=== PATIENT | female | born 1935 | race Caucasian/White ===

== ENCOUNTER 2017-04-09 10:19 | Emergency (ER) | payer MEDICARE ==
[~2017-04-09] VITALS: Ht 167.6 cm; Wt 45.4 kg
[~2017-04-09 10:19] MED LIST: ALBU90I INH; AZIT500 PO; BUDE10.22 INH; CEPH500 PO; FIBER; HYDACE5 PO; MINERALS; Naprosyn500 MG PO; Norco 5-325 Ta1 EACH PO; PRED10 PO; Prednisone20 MG PO; SPACER IH; VIT; Zithromax250 MG PO; [UNRECOGNIZED DRUG - OTHER] MC
[2017-04-09 11:06] LABS: BASOPHILS ABSOLUTE AUTO 0.06 K/mm3 (0.00-0.23); BASOPHILS PERCENT AUTO 0 % (0-2); EOSINOPHILS ABSOLUTE AUTO 0.04 K/mm3 (0.00-0.68); EOSINOPHILS PERCENT AUTO 0 % (0-6); Hematocrit 45.4 % (33.0-51.0); Hemoglobin 14.2 g/dL (11.5-16.0); IMMATURE GRAN ABSOLUTE AUTO 0.07 K/mm3 (0.00-0.10); IMMATURE GRAN PERCENT AUTO 0 % (0-1); LYMPHOCYTES ABSOLUTE AUTO 1.03 K/mm3 (0.84-5.20); LYMPHOCYTES PERCENT AUTO 7 % (21-46); MONOCYTES ABSOLUTE AUTO 0.91 K/mm3 (0.16-1.47); MONOCYTES PERCENT AUTO 6 % (4-13); Mean Corpuscular HGB 30.2 pg (26.0-34.0); Mean Corpuscular HGB Conc 31.3 g/dL (31.5-36.5); Mean Corpuscular Volume 97 fL (80-100); Mean Platelet Volume 9.8 fL (9.1-12.4); NEUTROPHILS ABSOLUTE AUTO 13.66 K/mm3 (1.96-9.15); NEUTROPHILS PERCENT AUTO 87 % (41-73); Platelet Count 268 K/mm3 (150-400); RDW Coefficient Variation 14.3 % (11.7-14.2); RDW Standard Deviation 51.7 fL (35.1-46.3); White Blood Cell Count 15.77 K/mm3 (4.00-11.30)
[2017-04-09 11:24] LABS: Alanine Aminotransfer (ALT/SGP 13 U/L (12-78); Albumin, Blood 3.3 g/dL (3.4-5.0); Albumin/Globulin Ratio 0.8 (0.8-1.8); Alk Phos 127 U/L (50-136); Anion Gap 5 mmol/L (6-16); Aspartate Aminotrans (AST/SGOT 8 U/L (12-37); Bilirubin, Total 0.5 mg/dL (0.1-1.0); Blood Urea Nitrogen 8 mg/dL (8-24); Bun/Creatinine Ratio 13.2 (12.0-20.0); CO2, Blood 29 mmol/L (21-32); Calcium, Blood 9.4 mg/dL (8.5-10.1); Chloride, Blood 105 mmol/L (98-108); Creatinine, Blood 0.61 mg/dL (0.40-1.00); Globulin, Blood 4.2 g/dL (2.2-4.0); Glomerular Filtration Rate >60 (60-); Glucose, Blood 89 mg/dL (70-99); Potassium, Blood 3.8 mmol/L (3.5-5.5); Sodium, Blood 139 mmol/L (136-145); Total Protein, Blood 7.5 g/dL (6.4-8.2); Troponin I <0.015 ng/mL (0.000-0.040)
== END 2017-04-09 14:56 | disposition home or self-care (01) ==
LOC: ER 10:19
PROVIDERS: Emergency Medicine
DX: J11.1 Influenza due to unidentified influenza virus with other respiratory manifestations (principal); M54.5 Low back pain; J44.9 Chronic obstructive pulmonary disease, unspecified; F17.210 Nicotine dependence, cigarettes, uncomplicated; Z90.710 Acquired absence of both cervix and uterus
CPT/HCPCS: 36415; 71046; 72100; 80053; 83880; 84484; 85025; 93005; 93010; 99283

== ENCOUNTER 2017-07-25 16:30 | Emergency (ER) | payer MEDICARE ==
[~2017-07-25] VITALS: Ht 167.6 cm; Wt 45.4 kg
[2017-07-25 17:12] LABS: BASOPHILS ABSOLUTE AUTO 0.04 K/mm3 (0.00-0.23); BASOPHILS PERCENT AUTO 1 % (0-2); EOSINOPHILS ABSOLUTE AUTO 0.16 K/mm3 (0.00-0.68); EOSINOPHILS PERCENT AUTO 2 % (0-6); Hematocrit 42.9 % (33.0-51.0); Hemoglobin 13.7 g/dL (11.5-16.0); IMMATURE GRAN ABSOLUTE AUTO 0.03 K/mm3 (0.00-0.10); IMMATURE GRAN PERCENT AUTO 0 % (0-1); LYMPHOCYTES ABSOLUTE AUTO 1.71 K/mm3 (0.84-5.20); LYMPHOCYTES PERCENT AUTO 20 % (21-46); MONOCYTES ABSOLUTE AUTO 0.66 K/mm3 (0.16-1.47); MONOCYTES PERCENT AUTO 8 % (4-13); Mean Corpuscular HGB 30.8 pg (26.0-34.0); Mean Corpuscular HGB Conc 31.9 g/dL (31.5-36.5); Mean Corpuscular Volume 96 fL (80-100); Mean Platelet Volume 9.5 fL (9.1-12.4); NEUTROPHILS ABSOLUTE AUTO 5.88 K/mm3 (1.96-9.15); NEUTROPHILS PERCENT AUTO 69 % (41-73); Platelet Count 229 K/mm3 (150-400); RDW Coefficient Variation 13.6 % (11.7-14.2); RDW Standard Deviation 48.6 fL (35.1-46.3); Red Blood Cell Count 4.45 M/mm3 (3.80-5.20); White Blood Cell Count 8.48 K/mm3 (4.00-11.30)
[2017-07-25 17:31] LABS: Alanine Aminotransfer (ALT/SGP 17 U/L (12-78); Albumin, Blood 3.4 g/dL (3.4-5.0); Albumin/Globulin Ratio 0.9 (0.8-1.8); Alk Phos 98 U/L (50-136); Anion Gap 5 mmol/L (6-16); Aspartate Aminotrans (AST/SGOT 12 U/L (12-37); Bilirubin, Total 0.2 mg/dL (0.1-1.0); Blood Urea Nitrogen 10 mg/dL (8-24); Bun/Creatinine Ratio 14.6 (12.0-20.0); CO2, Blood 29 mmol/L (21-32); Calcium, Blood 8.8 mg/dL (8.5-10.1); Chloride, Blood 107 mmol/L (98-108); Creatinine, Blood 0.69 mg/dL (0.40-1.00); Globulin, Blood 3.7 g/dL (2.2-4.0); Glomerular Filtration Rate >60 (60-); Glucose, Blood 109 mg/dL (70-99); Potassium, Blood 3.6 mmol/L (3.5-5.5); Sodium, Blood 141 mmol/L (136-145); Total Protein, Blood 7.1 g/dL (6.4-8.2); Troponin I <0.015 ng/mL (0.000-0.040)
== END 2017-07-25 18:08 | disposition home or self-care (01) ==
LOC: ER 16:30
PROVIDERS: Emergency Medicine
DX: R07.9 Chest pain, unspecified (principal); J44.9 Chronic obstructive pulmonary disease, unspecified; F17.210 Nicotine dependence, cigarettes, uncomplicated
CPT/HCPCS: 36415; 71045; 80053; 84484; 85025; 93005; 93010; 99283

== ENCOUNTER 2019-04-20 13:37 | Inpatient (IN) | payer MEDICARE ==
[~2019-04-20] VITALS: Ht 157.5 cm; Wt 35.5 kg
[2019-04-20 14:22] LABS: Hematocrit 40.2 % (33.0-51.0); Hemoglobin 13.3 g/dL (11.5-16.0); Mean Corpuscular HGB 31.7 pg (26.0-34.0); Mean Corpuscular HGB Conc 33.1 g/dL (31.5-36.5); Mean Corpuscular Volume 96 fL (80-100); Mean Platelet Volume 10.3 fL (9.1-12.4); Platelet Count 295 K/mm3 (150-400); RDW Coefficient Variation 13.7 % (11.7-14.2); RDW Standard Deviation 48.6 fL (35.1-46.3); White Blood Cell Count 39.29 K/mm3 (4.00-11.30)
[2019-04-20 14:32] LABS: Albumin, Blood 2.7 g/dL (3.4-5.0); Albumin/Globulin Ratio 0.7 (0.8-1.8); Bilirubin, Total 0.6 mg/dL (0.1-1.0); Bun/Creatinine Ratio 27.7 (12.0-20.0); Calcium, Blood 9.1 mg/dL (8.5-10.1); Creatinine, Blood 1.19 mg/dL (0.40-1.00); Globulin, Blood 3.9 g/dL (2.2-4.0); Potassium, Blood 3.5 mmol/L (3.5-5.5); Total Protein, Blood 6.6 g/dL (6.4-8.2)
[2019-04-20 14:59] LABS: BAND PERCENT MAN 2 % (0-8); BASOPHILS PERCENT MAN 0 % (0-2); EOSINOPHILS PERCENT MAN 0 % (0-6); LYMPHOCYTES ABSOLUTE MAN 1.17 K/mm3 (0.84-5.20); LYMPHOCYTES PERCENT MAN 3 % (21-46); MONOCYTES ABSOLUTE MAN 1.57 K/mm3 (0.16-1.47); MONOCYTES PERCENT MAN 4 % (4-13); NEUTROPHILS ABSOLUTE MAN 36.53 K/mm3 (1.96-9.15); SEG NEUTROPHILS PERCENT MAN 91 % (41-73); TOTAL CELLS COUNTED 100
[2019-04-20] MEDS ORDERED: IBUP200 PO (15:48)
--- NOTE | 2019-04-20 18:57 | NUR ---
Shift Summary Patient arrived to unit @ 1740 via stretcher with family at bedside. Used slide sheet to transfer pt to bed. IV abx given, NS @ 75mLs/hr initiated. Pt settled to room and call light protocol. Bed in lowest position, call light in reach. Will continue to monitor.
[2019-04-21 05:39] LABS: Hematocrit 37.4 % (33.0-51.0); Hemoglobin 11.9 g/dL (11.5-16.0); Mean Corpuscular HGB 31.2 pg (26.0-34.0); Mean Corpuscular HGB Conc 31.8 g/dL (31.5-36.5); Mean Corpuscular Volume 98 fL (80-100); Mean Platelet Volume 10.2 fL (9.1-12.4); Platelet Count 271 K/mm3 (150-400); RDW Coefficient Variation 13.7 % (11.7-14.2); RDW Standard Deviation 49.5 fL (35.1-46.3); Red Blood Cell Count 3.82 M/mm3 (3.80-5.20); White Blood Cell Count 29.68 K/mm3 (4.00-11.30)
--- NOTE | 2019-04-21 05:44 | NUR ---
SHIFT SUMMARY PT IS AN 83 Y/O FEMALE, ADMITTED FOR LLE CELLULITIS. SHE IS A&O X 2, THOUGH VERY SLEEPY THROUGH THE NIGHT WHICH MADE ORIENTATION DIFFICULT TO ASSESS. NO COMPLAINTS OF PAIN, NAUSEA OR SOB. VITAL SIGNS STABLE. PT RECEIVING NS @ 75 ML/HR THROUGH THE NIGHT. NO ACUTE CHANGES IN PT CONDITION NOTED. WILL CONTINUE TO MONITOR AND TREAT PER EMAR UNTIL HAND OFF TO DAY SHIFT RN.
[2019-04-21 06:08] LABS: Alanine Aminotransfer (ALT/SGP 17 U/L (12-78); Albumin, Blood 1.9 g/dL (3.4-5.0); Albumin/Globulin Ratio 0.6 (0.8-1.8); Alk Phos 125 U/L (50-136); Anion Gap 6 mmol/L (6-16); Aspartate Aminotrans (AST/SGOT 22 U/L (12-37); Bilirubin, Total 0.4 mg/dL (0.1-1.0); Blood Urea Nitrogen 24 mg/dL (8-24); Bun/Creatinine Ratio 32.7 (12.0-20.0); CO2, Blood 23 mmol/L (21-32); Calcium, Blood 8.4 mg/dL (8.5-10.1); Chloride, Blood 108 mmol/L (98-108); Creatinine, Blood 0.73 mg/dL (0.40-1.00); Globulin, Blood 3.1 g/dL (2.2-4.0); Glomerular Filtration Rate >60 (60-); Glucose, Blood 115 mg/dL (70-99); Potassium, Blood 3.2 mmol/L (3.5-5.5); Sodium, Blood 137 mmol/L (136-145)
[2019-04-21 09:10] LABS: Vancomycin, Random 5.3 ug/mL
--- NOTE | 2019-04-22 04:39 | NUR ---
SHIFT SUMMARY- PT. ALERT TO SELF. ASLEEP DURING MOST OF THE NIGHT. NO APPARENT DISTRESS NOTED. PT. C/O PAIN TO LLE. TYLENOL GIVEN PER EMAR, APPEARED TO HAVE GOOD RELIEF. LT LEG WEEPING, BLE ELEVATED AND PAD IN PLACE FOR ABSORPTION. PT. INCONTINENT, ATTENDS IN PLACE. NO ACUTE CHANGES OVERNIGHT. CALL LIGHT WITHIN REACH AND SIDE RAILS UP X2. WILL CONT TO MONITOR.
[2019-04-22 08:16] LABS: BASOPHILS ABSOLUTE AUTO 0.05 K/mm3 (0.00-0.23); BASOPHILS PERCENT AUTO 0 % (0-2); EOSINOPHILS ABSOLUTE AUTO 0.02 K/mm3 (0.00-0.68); EOSINOPHILS PERCENT AUTO 0 % (0-6); Hematocrit 37.7 % (33.0-51.0); Hemoglobin 12.1 g/dL (11.5-16.0); IMMATURE GRAN ABSOLUTE AUTO 0.11 K/mm3 (0.00-0.10); IMMATURE GRAN PERCENT AUTO 1 % (0-1); LYMPHOCYTES ABSOLUTE AUTO 0.55 K/mm3 (0.84-5.20); LYMPHOCYTES PERCENT AUTO 3 % (21-46); MONOCYTES ABSOLUTE AUTO 0.69 K/mm3 (0.16-1.47); MONOCYTES PERCENT AUTO 4 % (4-13); Mean Corpuscular HGB 31.5 pg (26.0-34.0); Mean Corpuscular HGB Conc 32.1 g/dL (31.5-36.5); Mean Corpuscular Volume 98 fL (80-100); Mean Platelet Volume 9.9 fL (9.1-12.4); NEUTROPHILS ABSOLUTE AUTO 18.06 K/mm3 (1.96-9.15); NEUTROPHILS PERCENT AUTO 93 % (41-73); Platelet Count 292 K/mm3 (150-400); RDW Coefficient Variation 13.7 % (11.7-14.2); RDW Standard Deviation 49.5 fL (35.1-46.3); Red Blood Cell Count 3.84 M/mm3 (3.80-5.20); White Blood Cell Count 19.48 K/mm3 (4.00-11.30)
[2019-04-22 08:45] LABS: Albumin, Blood 1.9 g/dL (3.4-5.0); Anion Gap 5 mmol/L (6-16); Blood Urea Nitrogen 21 mg/dL (8-24); Bun/Creatinine Ratio 39.6 (12.0-20.0); CO2, Blood 23 mmol/L (21-32); Calcium, Blood 8.7 mg/dL (8.5-10.1); Chloride, Blood 112 mmol/L (98-108); Creatinine, Blood 0.53 mg/dL (0.40-1.00); Glomerular Filtration Rate >60 (60-); Glucose, Blood 121 mg/dL (70-99); Phosphorus, Blood 1.2 mg/dL (2.5-4.9); Potassium, Blood 3.7 mmol/L (3.5-5.5); Sodium, Blood 140 mmol/L (136-145); Vancomycin, Trough 6.3 ug/mL (5.0-10.0)
--- NOTE | 2019-04-22 12:10 | NUR ---
TRANSFERRED PT TO ICU 3 AT NOON
--- NOTE | 2019-04-22 15:20 | NUR ---
THIS STUDENT NURSE SPOKE WITH PATIENT ON 04/22/2019 TO REQUEST TO HELP WITH PT'S CARE ON 04/23/2019 AT [phone]. PT APPROVED.
--- NOTE | 2019-04-22 16:57 | NUR ---
Per admit trigger, I was tasked to meet with Mrs. Carl to offer information about advanced care planning. She was sleeping soundly when I visited and no family present. Per RN, Mrs. Carl is mentally altered at baseline. Therefore this conversation seemed inappropriate. I left informatio packet at bedside table. If family arrives, I will be available to answer question/guidence.
--- NOTE | 2019-04-22 19:28 | NUR ---
SHIFT SUMMARY BROOK COMPLAINED OF PAIN RELIEVED BY TYLENOL THIS SHIFT. LLE WEEPING AND SORE, DISPOSABLE CHUCKS CHANGED REGULARLY. INCONTINENT AND Q2 TURNS, COCCYX RED BUT NO OPEN AREAS. TOOK PILLS WITH APPLESAUCE. ATTEMPTED TO GET OOB WITH PT, BUT LEG WAS TOO PAINFUL. FAMILY VISITED, CALL LIGHT IN REACH, TM
[2019-04-23 05:52] LABS: Hematocrit 36.4 % (33.0-51.0); Hemoglobin 11.7 g/dL (11.5-16.0); Mean Corpuscular HGB Conc 32.1 g/dL (31.5-36.5); Mean Corpuscular Volume 97 fL (80-100); Mean Platelet Volume 9.8 fL (9.1-12.4); Platelet Count 282 K/mm3 (150-400); RDW Coefficient Variation 13.5 % (11.7-14.2); RDW Standard Deviation 48.6 fL (35.1-46.3); Red Blood Cell Count 3.77 M/mm3 (3.80-5.20); White Blood Cell Count 11.69 K/mm3 (4.00-11.30)
[2019-04-23 06:23] LABS: Albumin, Blood 1.9 g/dL (3.4-5.0); Anion Gap 5 mmol/L (6-16); Blood Urea Nitrogen 16 mg/dL (8-24); CO2, Blood 23 mmol/L (21-32); Calcium, Blood 8.2 mg/dL (8.5-10.1); Chloride, Blood 113 mmol/L (98-108); Creatinine, Blood 0.47 mg/dL (0.40-1.00); Glomerular Filtration Rate >60 (60-); Glucose, Blood 121 mg/dL (70-99); Phosphorus, Blood 1.1 mg/dL (2.5-4.9); Potassium, Blood 3.4 mmol/L (3.5-5.5); Sodium, Blood 141 mmol/L (136-145)
--- NOTE | 2019-04-23 07:25 | NUR ---
04/23/19 0600 PT SLEPT ON AND OFF LAST NIGHT. VITALS STABLE. TURNED Q 2 HOURS WITH PILLOWS FOR SUPPORT. MEDICATED FOR PAIN PER MAR. INCONTINENT OF URINE AND ONE BROWN BM THIS SHIFT. PT HOPING TO GO HOME TODAY.
--- NOTE | 2019-04-23 17:58 | NUR ---
PT ALERT X3 DURING THIS SHIFT, BUT FORGETFUL OF HER SITUATION. PT VERY HUGHES. PT REMINDED MULTIPLE TIMES OF THE CONDITION OF HER FOOT AND THE CONCEQUENCES OF NOT RECEIVING ADEQUATE CARE. PT CONTINUES TO STATE THAT SHE IS GOING TO BE PICKED UP BY HER FAMILY TODAY/TONIGHT/TOMORROW TO GO HOME. PT COOPERATIVE WITH CARE AND IN GOOD SPIRITS. PT'S FAMILY IN ROOM THIS AFTERNOON, WITH PLANS TO RETURN LATER THIS EVENING. PT CURRENTLY SITTING UP IN BED EATING DINNER.
--- NOTE | 2019-04-24 05:16 | NUR ---
04/24/19 0510 AWAKENED FOR LABWORK. CHEERFUL AND JOKING WITH PRINTER SLOTTER OPERATOR. NO COMPLAINTS THIS AM.
[2019-04-24 05:38] LABS: BASOPHILS ABSOLUTE AUTO 0.04 K/mm3 (0.00-0.23); BASOPHILS PERCENT AUTO 0 % (0-2); EOSINOPHILS ABSOLUTE AUTO 0.17 K/mm3 (0.00-0.68); EOSINOPHILS PERCENT AUTO 2 % (0-6); Hematocrit 39.9 % (33.0-51.0); Hemoglobin 12.6 g/dL (11.5-16.0); IMMATURE GRAN ABSOLUTE AUTO 0.12 K/mm3 (0.00-0.10); IMMATURE GRAN PERCENT AUTO 1 % (0-1); LYMPHOCYTES ABSOLUTE AUTO 1.08 K/mm3 (0.84-5.20); LYMPHOCYTES PERCENT AUTO 12 % (21-46); MONOCYTES ABSOLUTE AUTO 0.89 K/mm3 (0.16-1.47); MONOCYTES PERCENT AUTO 10 % (4-13); Mean Corpuscular HGB 30.4 pg (26.0-34.0); Mean Corpuscular HGB Conc 31.6 g/dL (31.5-36.5); Mean Corpuscular Volume 96 fL (80-100); Mean Platelet Volume 9.3 fL (9.1-12.4); NEUTROPHILS ABSOLUTE AUTO 6.84 K/mm3 (1.96-9.15); NEUTROPHILS PERCENT AUTO 75 % (41-73); Platelet Count 282 K/mm3 (150-400); RDW Coefficient Variation 13.6 % (11.7-14.2); RDW Standard Deviation 48.8 fL (35.1-46.3); Red Blood Cell Count 4.14 M/mm3 (3.80-5.20); White Blood Cell Count 9.14 K/mm3 (4.00-11.30)
[2019-04-24 06:00] LABS: Anion Gap 3 mmol/L (6-16); Blood Urea Nitrogen 7 mg/dL (8-24); CO2, Blood 27 mmol/L (21-32); Calcium, Blood 7.8 mg/dL (8.5-10.1); Chloride, Blood 108 mmol/L (98-108); Creatinine, Blood 0.35 mg/dL (0.40-1.00); Glomerular Filtration Rate >60 (60-); Glucose, Blood 106 mg/dL (70-99); Phosphorus, Blood 1.7 mg/dL (2.5-4.9); Potassium, Blood 3.1 mmol/L (3.5-5.5); Sodium, Blood 138 mmol/L (136-145)
--- NOTE | 2019-04-24 16:21 | NUR ---
PT ALERT BUT FORGETFUL THIS SHIFT. LOWER LEFT LEG HAS LESS DRAINAGE THIS SHIFT. DR. HAYS IN THE ROOM THIS AFTERNOON FOR CONSULTATION. DR HAYS CLEANED SOME TISSUE FROM THE WOUND, TOOK A SAMPLE AND GAVE NEW ORDERS FOR WOUND DRESSING. LEG CONTINUES TO BE PAINFUL TO TOUCH AND MOVEMENT. PT ABLE TO REPOSITION SELF IN BED AND TRANSFERED FROM CHAIR TO BED WITH FWW AND MINIMAL ASSISTANCE. PT WORKED WITH PT THIS SHIFT. PT CURRENTLY RESTING IN BED.
--- NOTE | 2019-04-25 02:29 | NUR ---
DRAINAGE FROM WOUND ON LLE SOAKED THROUGH DRESSINGS. NEW DRESSINGS APPLIED. WOUND CLEANED W/ WOUND CLEANSER AND REDRESSED W/ 4X4'S AND WRAPPED IN KERLEX
--- NOTE | 2019-04-25 04:53 | NUR ---
SHIFT SUMMARY PT PLEASANT AND COOPERATIVE. VERY TEJON. SLEPT WELL WHEN NOT BEING WOKEN BY STAFF. PT INCONTINENT/CONTINENT THIS EVENING. UP TO BSC X 1 TO VOID, OTHERWISE INCONTINENT IN BRIEF. LOOSE STOOL X 2. PT VERY THIN AND FRAGILE, MEPILEX TO COCCYX, BARRIER CREAM APPLIED TO RAE AREA. PT REPORTED PAIN IN BACK WHEN TURNING AND CHANGING. DENIED ANY PAIN ONCE SETTLED AGAIN IN BED. DENIED ANY NEED FOR PAIN MEDICATION THIS EVENING. WOUND TO LLE, CLEANED AND REDRESSED THIS EVENING. MODERATE AMOUNT AMOUNT OF YELLOW/CLEAR DRAINAGE. FAMILY IN TO VISIT EARLY IN SHIFT. VITAL SIGNS STABLE. WILL CONTINUE TO MONITOR.
[2019-04-25 08:05] LABS: Hematocrit 44.4 % (33.0-51.0); Hemoglobin 14.3 g/dL (11.5-16.0); Mean Corpuscular HGB 31.2 pg (26.0-34.0); Mean Corpuscular HGB Conc 32.2 g/dL (31.5-36.5); Mean Corpuscular Volume 97 fL (80-100); Mean Platelet Volume 8.9 fL (9.1-12.4); Platelet Count 317 K/mm3 (150-400); RDW Coefficient Variation 13.6 % (11.7-14.2); RDW Standard Deviation 48.8 fL (35.1-46.3); Red Blood Cell Count 4.59 M/mm3 (3.80-5.20); White Blood Cell Count 10.23 K/mm3 (4.00-11.30)
[2019-04-25 08:25] LABS: Albumin, Blood 2.1 g/dL (3.4-5.0); Anion Gap 6 mmol/L (6-16); Blood Urea Nitrogen 8 mg/dL (8-24); Bun/Creatinine Ratio 17.9 (12.0-20.0); CO2, Blood 27 mmol/L (21-32); Calcium, Blood 8.1 mg/dL (8.5-10.1); Chloride, Blood 104 mmol/L (98-108); Creatinine, Blood 0.45 mg/dL (0.40-1.00); Glomerular Filtration Rate >60 (60-); Glucose, Blood 109 mg/dL (70-99); Phosphorus, Blood 1.8 mg/dL (2.5-4.9); Potassium, Blood 3.5 mmol/L (3.5-5.5); Sodium, Blood 137 mmol/L (136-145); Vancomycin, Trough 15.4 ug/mL (5.0-10.0)
--- NOTE | 2019-04-25 09:31 | NUR ---
WOUND DRESSING CHANGE DRESSING CHANGED BY DR. VILA WITH CHICKEN SKIN, GAUZE, AND JULIANO BANDAGE. LEFT LEG ELEVATED.
--- NOTE | 2019-04-25 16:25 | NUR ---
Shift Summary A/O to self, following directions, and to family. Pleasant and cooperative with care. Up in chair for most meals, TQ2. Patient requires frequent repositioning and needs assistance to do so. Dressing on L leg changed this shift. Does not use call light appropriately, extremely [place]CU[place] YAQUI. No other acute changes this shift.
[2019-04-26 05:22] LABS: BASOPHILS ABSOLUTE AUTO 0.07 K/mm3 (0.00-0.23); BASOPHILS PERCENT AUTO 1 % (0-2); EOSINOPHILS PERCENT AUTO 3 % (0-6); Hematocrit 39.9 % (33.0-51.0); Hemoglobin 12.6 g/dL (11.5-16.0); IMMATURE GRAN ABSOLUTE AUTO 0.26 K/mm3 (0.00-0.10); IMMATURE GRAN PERCENT AUTO 3 % (0-1); LYMPHOCYTES ABSOLUTE AUTO 1.37 K/mm3 (0.84-5.20); LYMPHOCYTES PERCENT AUTO 14 % (21-46); MONOCYTES ABSOLUTE AUTO 0.74 K/mm3 (0.16-1.47); MONOCYTES PERCENT AUTO 8 % (4-13); Mean Corpuscular HGB 30.4 pg (26.0-34.0); Mean Corpuscular HGB Conc 31.6 g/dL (31.5-36.5); Mean Corpuscular Volume 96 fL (80-100); NEUTROPHILS ABSOLUTE AUTO 7.04 K/mm3 (1.96-9.15); NEUTROPHILS PERCENT AUTO 72 % (41-73); Platelet Count 298 K/mm3 (150-400); RDW Coefficient Variation 13.6 % (11.7-14.2); RDW Standard Deviation 48.2 fL (35.1-46.3); Red Blood Cell Count 4.15 M/mm3 (3.80-5.20); White Blood Cell Count 9.78 K/mm3 (4.00-11.30)
[2019-04-26 06:01] LABS: Albumin, Blood 1.9 g/dL (3.4-5.0); Anion Gap 4 mmol/L (6-16); Blood Urea Nitrogen 8 mg/dL (8-24); Bun/Creatinine Ratio 15.9 (12.0-20.0); CO2, Blood 27 mmol/L (21-32); Chloride, Blood 108 mmol/L (98-108); Glomerular Filtration Rate >60 (60-); Glucose, Blood 96 mg/dL (70-99); Phosphorus, Blood 2.3 mg/dL (2.5-4.9); Potassium, Blood 3.7 mmol/L (3.5-5.5); Sodium, Blood 139 mmol/L (136-145)
--- NOTE | 2019-04-26 06:40 | NUR ---
SHIFT SUMMARY PT IS AN 83 Y/O FEMALE, ADMITTED FOR LLE CELLULITIS. SHE IS A&O X SELF ONLY, ON BEDREST. PT REPORTED PAIN IN LLE, AND WAS MEDICATED WITH SCHEDULED TYLENOL. NO COMPLAINTS OF NAUSEA OR SOB. VITALS SIGNS STABLE. INCONTINENT, TURN Q2H. NO OTHER ACUTE CHANGES IN PT CONDITION NOTED. WILL CONTINUE TO MONITOR AND TREAT PER EMAR UNTIL HAND OFF TO DAY SHIFT RN.
--- NOTE | 2019-04-26 08:23 | NUR ---
IV INSERTION PREVIOUS 20G IV LFA LEAKING, NEW 20G IV RFA INSERTED BY THIS NURSE.
[2019-04-26] MEDS ORDERED: LACT PO (12:24)
[2019-04-26] MEDS ORDERED: CEPH500 PO (12:25)
--- NOTE | 2019-04-26 12:37 | NUR ---
Discharge Med: Keflex Discussed Pharmacy's recommendation of Keflex 250mg BID x 5 days d/t age with Dr. Fernandez; Keflex will be reduced to TID instead of the originally ordered frequency of QID.
--- NOTE | 2019-04-26 17:10 | NUR ---
Discharge Summary A/O to self and family. Discharging home with HH. Pt will be living with her brother (Cassius) and his (Oralia) while grand-daughter (Ching) will be the one to take patient to appointments. Cassius's phone number is [phone]. Ching's phone number is [phone]. Discharge instructions reviewed with Ching and patient at bedside, they had no questions at this time. Meds faxed to [facility], f/u appointment scheduled with PCP. Personal belongings sent home. Patient escorted by this RN via w/c, transporting home via personal vehicle. IV removed, WNL. LLE wound dressing changed today, remains C/D/I.
== END 2019-04-26 16:55 | disposition home or self-care (01) | DRG 853 ==
LOC: ER 13:37 → MEDS 16:36
PROVIDERS: Emergency Medicine; Internal Medicine; Pharmacist; ADMIT Internal Medicine
PROC: 0JBP0ZZ Excision of Left Lower Leg Subcutaneous Tissue and Fascia, Open Approach (ICD-10-PCS; principal; 2019-04-24)
DX: A40.0 Sepsis due to streptococcus, group A (principal); E43 Unspecified severe protein-calorie malnutrition; L03.116 Cellulitis of left lower limb; E87.2 Acidosis; N17.9 Acute kidney failure, unspecified; Z68.1 Body mass index [BMI] 19.9 or less, adult; R65.20 Severe sepsis without septic shock; J44.9 Chronic obstructive pulmonary disease, unspecified; F17.210 Nicotine dependence, cigarettes, uncomplicated; E87.6 Hypokalemia; E83.39 Other disorders of phosphorus metabolism; I12.9 Hypertensive chronic kidney disease with stage 1 through stage 4 chronic kidney disease, or unspecified chronic kidney disease; N18.9 Chronic kidney disease, unspecified; I10 Essential (primary) hypertension
CPT/HCPCS: 36415; 73590; 73630; 73701; 80053; 80069; 80202; 83605; 83735; 83880; 85025; 85027; 85651; 85730; 86140; 87040; 87070; 87075; 87147; 87205; 93005; 93010; 94640; 94760; 96365; 97110; 97162; 97166; 97530; 97535; 99285-25; A9270; J0692; J1650; J3370; J7030; J7050; J7060; Q9967

== ENCOUNTER 2019-05-02 17:40 | Inpatient (IN) | payer MEDICARE ==
[~2019-05-02] VITALS: Ht 165.1 cm; Wt 36.7 kg
[~2019-05-02 17:40] MED LIST changes: +IBUP200 PO; +LACT PO
[2019-05-02 19:16] LABS: BASOPHILS ABSOLUTE AUTO 0.11 K/mm3 (0.00-0.23); BASOPHILS PERCENT AUTO 1 % (0-2); EOSINOPHILS ABSOLUTE AUTO 0.12 K/mm3 (0.00-0.68); EOSINOPHILS PERCENT AUTO 1 % (0-6); Hematocrit 42.4 % (33.0-51.0); Hemoglobin 13.5 g/dL (11.5-16.0); IMMATURE GRAN ABSOLUTE AUTO 0.14 K/mm3 (0.00-0.10); IMMATURE GRAN PERCENT AUTO 1 % (0-1); LYMPHOCYTES ABSOLUTE AUTO 1.46 K/mm3 (0.84-5.20); LYMPHOCYTES PERCENT AUTO 7 % (21-46); MONOCYTES ABSOLUTE AUTO 0.93 K/mm3 (0.16-1.47); MONOCYTES PERCENT AUTO 5 % (4-13); Mean Corpuscular HGB 31.4 pg (26.0-34.0); Mean Corpuscular HGB Conc 31.8 g/dL (31.5-36.5); Mean Corpuscular Volume 99 fL (80-100); Mean Platelet Volume 9.3 fL (9.1-12.4); NEUTROPHILS PERCENT AUTO 87 % (41-73); Platelet Count 497 K/mm3 (150-400); RDW Coefficient Variation 14.5 % (11.7-14.2); RDW Standard Deviation 51.3 fL (35.1-46.3); White Blood Cell Count 20.76 K/mm3 (4.00-11.30)
[2019-05-02 19:34] LABS: Albumin, Blood 2.9 g/dL (3.4-5.0); Albumin/Globulin Ratio 0.7 (0.8-1.8); Anion Gap 4 mmol/L (6-16); Aspartate Aminotrans (AST/SGOT 24 U/L (12-37); Bilirubin, Total 0.5 mg/dL (0.1-1.0); Blood Urea Nitrogen 25 mg/dL (8-24); Bun/Creatinine Ratio 34.2 (12.0-20.0); CO2, Blood 27 mmol/L (21-32); Calcium, Blood 9.2 mg/dL (8.5-10.1); Chloride, Blood 104 mmol/L (98-108); Creatinine, Blood 0.73 mg/dL (0.40-1.00); Glomerular Filtration Rate >60 (60-); Glucose, Blood 98 mg/dL (70-99); Potassium, Blood 3.6 mmol/L (3.5-5.5); Sodium, Blood 135 mmol/L (136-145); Total Protein, Blood 6.9 g/dL (6.4-8.2)
[2019-05-02 19:38] LABS: Alanine Aminotransfer (ALT/SGP 25 U/L (12-78); Alk Phos 131 U/L (50-136)
[2019-05-02] MEDS ORDERED: BUDE10.22 (20:35)
[2019-05-03 06:15] LABS: BASOPHILS ABSOLUTE AUTO 0.05 K/mm3 (0.00-0.23); BASOPHILS PERCENT AUTO 1 % (0-2); EOSINOPHILS ABSOLUTE AUTO 0.53 K/mm3 (0.00-0.68); EOSINOPHILS PERCENT AUTO 5 % (0-6); Hemoglobin 10.9 g/dL (11.5-16.0); IMMATURE GRAN ABSOLUTE AUTO 0.07 K/mm3 (0.00-0.10); IMMATURE GRAN PERCENT AUTO 1 % (0-1); LYMPHOCYTES ABSOLUTE AUTO 1.03 K/mm3 (0.84-5.20); LYMPHOCYTES PERCENT AUTO 10 % (21-46); MONOCYTES PERCENT AUTO 6 % (4-13); Mean Corpuscular HGB 30.6 pg (26.0-34.0); Mean Corpuscular HGB Conc 31.1 g/dL (31.5-36.5); Mean Corpuscular Volume 98 fL (80-100); Mean Platelet Volume 9.5 fL (9.1-12.4); NEUTROPHILS PERCENT AUTO 78 % (41-73); Platelet Count 362 K/mm3 (150-400); RDW Coefficient Variation 14.4 % (11.7-14.2); RDW Standard Deviation 51.6 fL (35.1-46.3); Red Blood Cell Count 3.56 M/mm3 (3.80-5.20); White Blood Cell Count 10.48 K/mm3 (4.00-11.30)
[2019-05-03 06:33] LABS: Anion Gap 3 mmol/L (6-16); Blood Urea Nitrogen 17 mg/dL (8-24); Bun/Creatinine Ratio 29.2 (12.0-20.0); CO2, Blood 26 mmol/L (21-32); Calcium, Blood 7.7 mg/dL (8.5-10.1); Chloride, Blood 111 mmol/L (98-108); Creatinine, Blood 0.58 mg/dL (0.40-1.00); Glomerular Filtration Rate >60 (60-); Glucose, Blood 100 mg/dL (70-99); Potassium, Blood 3.3 mmol/L (3.5-5.5); Sodium, Blood 140 mmol/L (136-145)
--- NOTE | 2019-05-03 12:26 | NUR ---
PT ADMITTED PT ADMITTED. VSS. PT ORIENTED TO ROOM. BED ALRAM ON DUE TO CONFUSION. DR. POWELL NOTIFIED OF PT ADMISSION AND BACK PAIN. STATED HE WILL SEE PT SOON AND MAKE ORDERS NEEDED. FAMILY AT BEDSIDE. WILL CONTINUE TO MONITOR.
--- NOTE | 2019-05-03 15:00 | NUR ---
Initial Visit: Demented pt admitted with cellulitis. She is sitting up in bed, eating at time of visit. Family includes pt's granddaughter, son, and great-granddaughter. Family is upset with her admission. Pt has many social issues, including currently living with a brother after being evicted from her home that she shared with her daughter. The daughter is currently unavailable and not answering family's calls - they do not know of her whereabouts. Pt has poor understanding of life saving interventions. Nurse attempted to discuss with her without her understanding, as she is not understanding them now. She is forgetful, requiring frequent direction of where she is. Discussed with family. POLST form given and discussed. They do not think she would want to be resusitated. They will discuss as a family. Questions answered. Their concerns are for her legs. Will remain avaialble.
--- NOTE | 2019-05-03 16:36 | NUR ---
SHIFT SUMMARY PT ADMIT FINISHED. NEW IV PLACED IN R UPPER ARM. PT MEDICATED FOR PAIN TWICE THIS SHIFT. OT RICHARD COMPLETED. PT VERY CONFUSED BUT AT MENTATION BASELINE. WOUNDS DRESSED & PICS TAKEN. SEE CHART. PT SATING WELL ON RA. FAMILY AT BEDSIDE. PT UP TO COMMODE TO VOID. HAS SMALL BM THIS SHIFT. NO OTHER CHANGES IN ASSESSMENT AT THIS TIME. WILL CONTINUE TO MONITOR UNTIL TURNOVER IS COMPLETE.
[2019-05-04 05:06] LABS: BASOPHILS ABSOLUTE AUTO 0.04 K/mm3 (0.00-0.23); BASOPHILS PERCENT AUTO 0 % (0-2); EOSINOPHILS ABSOLUTE AUTO 0.56 K/mm3 (0.00-0.68); EOSINOPHILS PERCENT AUTO 5 % (0-6); Hematocrit 35.7 % (33.0-51.0); Hemoglobin 11.3 g/dL (11.5-16.0); IMMATURE GRAN ABSOLUTE AUTO 0.05 K/mm3 (0.00-0.10); IMMATURE GRAN PERCENT AUTO 1 % (0-1); LYMPHOCYTES ABSOLUTE AUTO 1.18 K/mm3 (0.84-5.20); LYMPHOCYTES PERCENT AUTO 11 % (21-46); MONOCYTES ABSOLUTE AUTO 0.54 K/mm3 (0.16-1.47); MONOCYTES PERCENT AUTO 5 % (4-13); Mean Corpuscular HGB 31.5 pg (26.0-34.0); Mean Corpuscular HGB Conc 31.7 g/dL (31.5-36.5); Mean Corpuscular Volume 99 fL (80-100); Mean Platelet Volume 9.7 fL (9.1-12.4); NEUTROPHILS PERCENT AUTO 78 % (41-73); Platelet Count 400 K/mm3 (150-400); RDW Coefficient Variation 14.6 % (11.7-14.2); RDW Standard Deviation 52.8 fL (35.1-46.3); Red Blood Cell Count 3.59 M/mm3 (3.80-5.20); White Blood Cell Count 10.57 K/mm3 (4.00-11.30)
[2019-05-04 05:26] LABS: Anion Gap 6 mmol/L (6-16); Blood Urea Nitrogen 10 mg/dL (8-24); Bun/Creatinine Ratio 16.1 (12.0-20.0); CO2, Blood 26 mmol/L (21-32); Calcium, Blood 8.1 mg/dL (8.5-10.1); Chloride, Blood 107 mmol/L (98-108); Creatinine, Blood 0.62 mg/dL (0.40-1.00); Glomerular Filtration Rate >60 (60-); Glucose, Blood 84 mg/dL (70-99); Potassium, Blood 3.6 mmol/L (3.5-5.5); Sodium, Blood 139 mmol/L (136-145)
--- NOTE | 2019-05-04 06:22 | NUR ---
END OF SHIFT: PATIENT WAS PLEASANTLY CONFUSED THIS NOC SHIFT. INTERMITTENTLY SHE BECOMES SOB, SO I HOOKED UP A CAPSULE TO MONITOR O2 SATS. VSS SHE SLEPT WELL WHEN SHE WAS ABLE TO. SHE WAS TURNED FREQUENTLY AND BED IS LOW LCKED AND ALARMED. CALL KRISHNAN WITHIN REACH.
--- NOTE | 2019-05-04 12:30 | NUR ---
DR VILA IN TO SEE PT. NEW DRESSING APPLIED TO LEFT FOOT. PER DR VILA PT TO BE NPO AFTER MIDNIGHT FOR I&D TOMORROW WITH POSSIBLE WOUND VAC PLACEMENT.
--- NOTE | 2019-05-04 14:00 | NUR ---
Clinical Visit: Pt's family has many questions - most of them are regarding social issues and they are referred to palliative care specialist for questions. They have filled out the POLST form. Pt's son has signed it, as she is unable. It is awaiting doctor's signature.
--- NOTE | 2019-05-04 17:28 | NUR ---
SHIFT SUMMARY- PT A/OX2, FAMILY AT BEDSIDE T/O THE DAY. PT MEDICATED X2 FOR PAIN TO LEFT LEG. DRESSING TO LEFT LEG CHANGED, PT TO BE NPO AFTER MIDNIGHT FOR I&D TOMORROW WITH DR VILA. LS DIMINISHED, ON . PT WITH NOTED RASH ALL OVER BODY, TOPICAL AND PO BENADRYL ORDERED. DR ROSE TO BE CONSULTED ON MONDAY FOR PVD. FAMILY CONCERNED ABOUT DISCHARGE PLANS FOR PT SINCE THEY HAVE CONCERNS ABOUT HER LIVING SITUATION AND LIVING WITH PT'S DAUGHTER AND RECENTLY EVICTED. 1-2 ASSIST OUT OF BED TO BSC AND CHAIR. NO OTHER ACUTE CHANGES THIS SHIFT.
--- NOTE | 2019-05-05 05:08 | NUR ---
END OF SHIFT: PATIENT RECEIVED PAIN MEDS X2 THIS SHIFT. WE CHANGED HER DRESSING TO THE LLE AND ANKLE. APPLIED BENEDRYL CREAM TO RASH AND NYSTATIN TO GROIN AND BOTTOM. CHANGED ALL LINENS. PATIENT RESTING QUIETLY IN NO APPARENT DISTRESS.
--- NOTE | 2019-05-05 12:51 | NUR ---
DNR CODE STATUS VERIFIED AND PLACED TO LEFT WRIST. POLST COPIED AND FAXED TO [facility].
--- NOTE | 2019-05-05 15:23 | NUR ---
PT TO DAY SURGERY FOR I&D, FAMILY AT BEDSIDE.
--- NOTE | 2019-05-05 16:47 | NUR ---
SHIFT SUMMARY- PT A/O TO SELF AND FAMILY ONLY. CONFUSED BUT PLEASANT. PT REPORTS PAIN TO LEFT LEG ONLY WITH MOVEMENT OR TOUCH. LS DIMINISHED, ON RA. HRR. PT TO SURGERY TODAY FOR I&D OF LEFT LEG. PT CONT TO HAVE RASH ALL OVER BODY BUT APPEARS TO NOT BE ITCHY TODAY. JENN SIGNED AND CHANGED TO DNR. JEWELSLAJAKOB TO BE CONSULTED TOMORROW. FAMILY AT BEDSIDE T/O THE DAY. 1-2 ASSIST UP TO BSC/CHAIR. NO OTHER ACUTE CHANGES THIS SHIFT.
--- NOTE | 2019-05-05 18:11 | NUR ---
PT ARRIVED TO ROOM 304 VIA BED FROM SURGERY. WOUND VAC IN PLACE TO LEFT ANKLE, RUNNING AT 120 CONT. FAMILY AT BEDSIDE. PT DENIES ANY COMPLAINTS. VSS. WILL CONT TO MONITOR.
[2019-05-06 04:51] LABS: BASOPHILS ABSOLUTE AUTO 0.04 K/mm3 (0.00-0.23); BASOPHILS PERCENT AUTO 1 % (0-2); EOSINOPHILS ABSOLUTE AUTO 0.57 K/mm3 (0.00-0.68); EOSINOPHILS PERCENT AUTO 7 % (0-6); Hematocrit 36.4 % (33.0-51.0); Hemoglobin 11.1 g/dL (11.5-16.0); IMMATURE GRAN ABSOLUTE AUTO 0.05 K/mm3 (0.00-0.10); IMMATURE GRAN PERCENT AUTO 1 % (0-1); LYMPHOCYTES PERCENT AUTO 10 % (21-46); MONOCYTES ABSOLUTE AUTO 0.56 K/mm3 (0.16-1.47); MONOCYTES PERCENT AUTO 7 % (4-13); Mean Corpuscular HGB Conc 30.5 g/dL (31.5-36.5); Mean Corpuscular Volume 102 fL (80-100); Mean Platelet Volume 9.7 fL (9.1-12.4); NEUTROPHILS ABSOLUTE AUTO 5.93 K/mm3 (1.96-9.15); NEUTROPHILS PERCENT AUTO 75 % (41-73); Platelet Count 337 K/mm3 (150-400); RDW Coefficient Variation 14.9 % (11.7-14.2); RDW Standard Deviation 55.1 fL (35.1-46.3); Red Blood Cell Count 3.58 M/mm3 (3.80-5.20); White Blood Cell Count 7.95 K/mm3 (4.00-11.30)
[2019-05-06 05:11] LABS: Albumin, Blood 1.7 g/dL (3.4-5.0); Anion Gap 5 mmol/L (6-16); Blood Urea Nitrogen 8 mg/dL (8-24); Bun/Creatinine Ratio 13.8 (12.0-20.0); CO2, Blood 26 mmol/L (21-32); Chloride, Blood 109 mmol/L (98-108); Creatinine, Blood 0.58 mg/dL (0.40-1.00); Glomerular Filtration Rate >60 (60-); Glucose, Blood 76 mg/dL (70-99); Phosphorus, Blood 2.7 mg/dL (2.5-4.9); Potassium, Blood 4.1 mmol/L (3.5-5.5); Sodium, Blood 140 mmol/L (136-145)
--- NOTE | 2019-05-06 07:35 | NUR ---
END OF SHIFT: PATIENT WAS TURNED Q 2 THIS HSIFT. SHE GOT BEEDRYL AND NYSTATIN CREAM PER ORDER. HER WOUND VAC REAMINS INTACT. ASSESSMENT WAS COMPLETED AND HOURLY ROUNDING. HE BED KEPT LOW AND LOCKED AND ALRMED. PLEASANTLY CONFUSED.
--- NOTE | 2019-05-06 08:52 | NUR ---
05/06/19 0852 Kusum Mcnulty VERIFICATIONS: EDIT CHART.
--- NOTE | 2019-05-06 14:09 | NUR ---
PERMISSION FOR CARE I, DESTINY MEMBRENO A STUDENT NURSE, RECEIVED PERMISSION ON 05-06-2019 TO PROVIDE CARE ON 05-07-2019
--- NOTE | 2019-05-06 19:28 | NUR ---
SHIFT SUMMARY: NO ACUTE CHANGES TO REPORT THIS SHIFT. PT HX DEMENTIA; A&O X2-3. LLE I&D 05/05; WOUND VAC IN PLACE @ 120MM; CONSULT REQUESTED FROM INTERVENTION[facility] RADIOLOGY (DR ROSE) THIS SHIFT. NO C/O PAIN THIS SHIFT. IV ABX CONTINUING. REPORT GIVEN TO ONCOMING RN.
--- NOTE | 2019-05-06 19:47 | NUR ---
BROOK IS COMFORTABLE IN BED. DENIES PAIN OR DISCOMFORT. RASH NOTED ALL OVER THE BODY, DENIES HAVING ITCHING OR PAIN FROM IT. DRESSINGS NOTED ON BOTTOM, LEFT ARM, LEFT LEG ALL INTACT. WOUND VAC TO THE LLE, HOOKED UP TO SUCTION AND RUNNING AT 125MMGH. NO DRAINAGE NOTED IN CANISTER AT THIS TIME. SHE IS TEJON, DENIES ANY NEEDS AT THIS TIME. CALL LIGHT IN REACH. WILL CONTINUE TO MONITOR.
[2019-05-07 05:03] LABS: BASOPHILS ABSOLUTE AUTO 0.03 K/mm3 (0.00-0.23); BASOPHILS PERCENT AUTO 0 % (0-2); EOSINOPHILS ABSOLUTE AUTO 0.96 K/mm3 (0.00-0.68); EOSINOPHILS PERCENT AUTO 11 % (0-6); Hematocrit 35.3 % (33.0-51.0); Hemoglobin 11.1 g/dL (11.5-16.0); IMMATURE GRAN ABSOLUTE AUTO 0.05 K/mm3 (0.00-0.10); IMMATURE GRAN PERCENT AUTO 1 % (0-1); LYMPHOCYTES ABSOLUTE AUTO 0.89 K/mm3 (0.84-5.20); LYMPHOCYTES PERCENT AUTO 10 % (21-46); MONOCYTES ABSOLUTE AUTO 0.57 K/mm3 (0.16-1.47); MONOCYTES PERCENT AUTO 7 % (4-13); Mean Corpuscular HGB 30.9 pg (26.0-34.0); Mean Corpuscular HGB Conc 31.4 g/dL (31.5-36.5); Mean Platelet Volume 9.4 fL (9.1-12.4); NEUTROPHILS ABSOLUTE AUTO 6.07 K/mm3 (1.96-9.15); NEUTROPHILS PERCENT AUTO 71 % (41-73); Platelet Count 324 K/mm3 (150-400); RDW Coefficient Variation 14.9 % (11.7-14.2); RDW Standard Deviation 53.8 fL (35.1-46.3); Red Blood Cell Count 3.59 M/mm3 (3.80-5.20); White Blood Cell Count 8.57 K/mm3 (4.00-11.30)
[2019-05-07 05:17] LABS: Mean Corpuscular Volume 98 fL (80-100)
[2019-05-07 05:32] LABS: Anion Gap 4 mmol/L (6-16); Blood Urea Nitrogen 11 mg/dL (8-24); CO2, Blood 32 mmol/L (21-32); Calcium, Blood 8.3 mg/dL (8.5-10.1); Chloride, Blood 105 mmol/L (98-108); Creatinine, Blood 0.65 mg/dL (0.40-1.00); Glomerular Filtration Rate >60 (60-); Glucose, Blood 89 mg/dL (70-99); Potassium, Blood 3.5 mmol/L (3.5-5.5); Sodium, Blood 141 mmol/L (136-145)
--- NOTE | 2019-05-07 06:01 | NUR ---
SHIFT SUMMARY: BROOK VS HAVE REMAINED STABLE. PAIN WAS MANAGED WITH ULTRAM, WHICH WAS GIVEN ONCE. THERE WAS SEVERAL EVENTS WHERE THE PATIENT WAS FOUND PLAYING IN HER FECES AND WOULD TEAR HER ATTENDS IN PEICES, THROWING IT EVERYWHERE. LINEN HAD TO BE CHANGED SEVERAL TIMES. EACH TIME SHE WAS TALKED TO ABOUT IT AND NOT TO PLAY IN HER BOWELS, TO CALL FOR ASSISTANCE, WHICH SHE KNEW HOW TO USE THE CALL LIGHT. GROIN AND BOTTOM HAVE BECAME SEVERELY RED AND INFLAMMED. SHE HAS NEW OPENINGS ON HER BOTTOM FROM SCRATCHING AND ULCERATION. DRESSINGS WERE CHANGED THIS SHIFT, NEW ONE PLACED ON BOTTOM. BARRIER CREAM AND NYSTATIN USED IN GROIN. WOUND VAC HAS REMAINED INTACT AND SUCTION AT 120MMGH. NO DRAINAGE NOTED. MEDS GIVEN PER ORDERS. NO OTHER CHANGES TO REPORT.
--- NOTE | 2019-05-07 19:15 | NUR ---
Recieved message from nurse to help family with medical POA paperwork. Neel had mentioned to the family that palliative can assist with this. Call to Neel and message left. Pt is demented and not able to assign medical POA. She is not able to appropriately sign documents. Her son is the clear decision maker for her health. The family is in process of getting the pt's affairs in order and there are many social difficulties. Palliative care to remain available for helping family, but it is unlikely that the pt would be able to sign medical POA.
--- NOTE | 2019-05-07 19:39 | NUR ---
SHIFT SUMMARY: NO ACUTE CHANGES TO REPORT THIS SHIFT. PT ALERT; HX DEMENTIA; ORIENTED TO SELF AND FAMILY. NO C/O PAIN THIS SHIFT. WOUND VAC TO LLE; DRESSING INTACT; AWAITING REVASCULARIZATION. REPORT GIVEN TO ONCOMING RN.
--- NOTE | 2019-05-07 20:00 | NUR ---
FAMILY IS AT BEDSIDE, BEEN WAITING ALL DAY FOR DR. ROSE TO COME TAKE HER TO SURGERY. HE JUST SHOWED UP TO ROOM. SURGICAL CONSENT SIGNED, SHE IS TO BE NPO AFTER BREAKFAST. SHE HAS BEEN GOOD ALL DAY WITH FAMILY AT BEDSIDE. NO PUTTING HER HANDS IN HER BOWEL MOVMENTS. SHE DENIES PAIN AT THIS TIME. ATTENDS WET. SLIVER LAP TENDER ASSISTED IN ATTENDS CHANGE, GROIN REDNESS HAS IMPROVED. REPOSITIONED UP IN BED. WOUND VAC STILL HOOKED TO SUCTION. FAMILY WILL GO HOME NOW THAT SUGERY IS POSTPONE TO TOMORROW. WILL CONTIUE TO MONITOR.
[2019-05-08 04:49] LABS: BASOPHILS ABSOLUTE AUTO 0.03 K/mm3 (0.00-0.23); BASOPHILS PERCENT AUTO 0 % (0-2); EOSINOPHILS ABSOLUTE AUTO 0.77 K/mm3 (0.00-0.68); EOSINOPHILS PERCENT AUTO 11 % (0-6); Hematocrit 35.6 % (33.0-51.0); Hemoglobin 11.3 g/dL (11.5-16.0); IMMATURE GRAN ABSOLUTE AUTO 0.03 K/mm3 (0.00-0.10); IMMATURE GRAN PERCENT AUTO 0 % (0-1); LYMPHOCYTES ABSOLUTE AUTO 0.86 K/mm3 (0.84-5.20); LYMPHOCYTES PERCENT AUTO 12 % (21-46); MONOCYTES ABSOLUTE AUTO 0.59 K/mm3 (0.16-1.47); MONOCYTES PERCENT AUTO 9 % (4-13); Mean Corpuscular HGB 31.3 pg (26.0-34.0); Mean Corpuscular HGB Conc 31.7 g/dL (31.5-36.5); Mean Corpuscular Volume 99 fL (80-100); Mean Platelet Volume 9.5 fL (9.1-12.4); NEUTROPHILS PERCENT AUTO 67 % (41-73); Platelet Count 304 K/mm3 (150-400); RDW Coefficient Variation 15.1 % (11.7-14.2); RDW Standard Deviation 54.2 fL (35.1-46.3); Red Blood Cell Count 3.61 M/mm3 (3.80-5.20); White Blood Cell Count 6.98 K/mm3 (4.00-11.30)
--- NOTE | 2019-05-08 05:14 | NUR ---
SHIFT SUMMARY; BROOK WAS UP MOST OF THE NIGHT. SHE AGAIN WAS PLAYING IN HER BOWEL MOVEMENT AND IT WAS FOUND ALL OVER HER FACE AND BEDDING. SHE EVEN LICKED HER HANDS THAT HAD BM ALL OVER IT. DISCUSSED IN DETAIL AGAIN WHAT IT CAN CAUSE. SHE JUST KEPT STATING SHE DID NOT DO IT. SHE HAD ONE OTHER INCIDENT TONIGHT OF THE OCCURANCE. HAD TO KEEP CURTAIN OPEN AND CHECK ON HER FREQUENTLY TO KEEP HER FROM DOING IT. VS HAVE REMAINED STABLE. MILD PAIN ONLY WITH TURNING. WOUND VAC REMAINED INTAKE. SHE WILL BE NPO AFTER BREAKFAST. SHE STILL DID NOT USE CALL LIGHT. RASH IS IMPROVING. NO OTHER ACUTE CHANGES OCCURRED WILL REPORT TO DAY SHIFT.
--- NOTE | 2019-05-08 16:30 | NUR ---
PT ADMIT PT ALERT AND ORIENT, RESTING WITH HER EYES CLOSED BUT FOLLOWING COMMANDS ALTHOUGH IMPULSIVE. ADMIT FROM MEDICATION NURSE INTO ICU 1. VSS, RIGHT FEMORAL SITE ANGIO SEAL AND INTACT/SOFT AND NO S/S OF BLEEDING. RA WITH SATS WNL AND CLEAR AND DIM. MED BROWN BM SOFT AND INCONTINENT. UO ADEQUATE. WILL CONT TO MONITOR
--- NOTE | 2019-05-08 18:59 | NUR ---
SHE SAT UP IN A CHAIR MUCH OF THE MORNING. NO COMPLAINTS. WOIUND VAC ON LT FOOT WITH GOOD SUCTION. SHE IS VERY [place] AND ALSO HAS SOME CONFUSION. TO [facility] AT 1340 FOR REVASCULARIZATION OF HER LEFT LEG. SHE THEN WENT TO ICU 16 POST PROCEDURE. ALL BELONGINGS TAKEN TO ICU PRIOR TO HER ARRIVAL. CONTACT ISOLATION ONGOING FOR ESBL IN THE URINE.
--- NOTE | 2019-05-08 19:15 | NUR ---
ASSUMED PT CARE FROM SANDRO BOLIVAR BEDSIDE REPORT GIVEN. PT LYING IN BED. RIGHT GROIN SITE HAS ANGIOSEAL CLOSURE DEVICE IN PLACE; SITE IS SOFT, NON-TENDER WITH NO OOZING OR HEMATOMA NOTED. PT HAS A HX OF DEMENTIA AND NEEDS FREQUENT REMINDERS TO KEEP LEG STRAIGHT. PT IS INCONTINENT OF BOWEL AND BLADDER AND REQUIRES FREQUENT CHECKS. WOUND VAC PATENT AND INTACT TO LEFT LOWER EXTREMITY; NEED ORDERS FOR WOUND VAC CHANGES. NURSE NOTIFY ORDERS ENTERED TO CONTACT DR. VILA FOR ORDERS IN THE AM. PT ALSO HAS SIGNIFICANT VASCULAR ULCERS TO BLE'S THAT WILL REQUIRE DRESSING CHANGES THIS SHIFT. NO FAMILY AT BEDSIDE AT THIS TIME.
--- NOTE | 2019-05-09 05:48 | NUR ---
END OF SHIFT SUMMARY PT SLEPT MOST OF NIGHT. REQUIRED Q2 HOURS BRIEF CHANGES D/T INCONTINENCE OF BOTH BOWEL AND BLADDER. CONTINUE TO APPLY NYSTATIN/TRIAMCINOLONE CREAM TO BUTTOCKS/GROIN BID PER ORDERS. WOUND VAC REMAINS PATENT AND INTACT AT 120 MM HG TO LEFT ANKLE/LE. DUE TO BE CHANGED TODAY BY DR. VILA; PER HIS NOTE. OTHER DRESSINGS TO VASCULAR ULCERS WERE CHANGED THIS SHIFT; SEE SHIFT ASSESSMENT. NO FAMLY AT BEDSIDE AT THIS TIME. WILL CONTINUE TO MONITOR UNTIL REPORT IS HANDED OFF TO ONCOMING RN.
--- NOTE | 2019-05-09 09:00 | NUR ---
pt arrived to pcu from icu, report obtained from Álvaro JO. pt is awake alert to self and staff, pleasant and cooperative with care, asking for tv control, denies any complaints of pain, wound vac in place to lle, right foot has a pocket of fluid on top of foot, v.s. stable. call light in reach.
--- NOTE | 2019-05-09 11:17 | NUR ---
RESTING IN BED WATCHING TV, NO COMPLAINTS OR NEEDS AT THIS TIME. CALL LIGHT IN REACH.
--- NOTE | 2019-05-09 12:54 | NUR ---
PT PULLED OF HER ATTENDS, STATES SHE WANTS SOME UNDERWEAR ON NOW. JOB COACH CLEANED HER UP AND IS PUTTING PULL UPS ON HER. CALL LIGHT IN REACH.
--- NOTE | 2019-05-09 18:28 | NUR ---
PT HAS PULLED ATTENDS OF SEVERAL TIMES, BUT HAS BEEN CHANGED REGULARLY, DR. VILA CHANGED THE WOUND VAC, PT HAD SOME PAIN WITH THIS, SO MEDICATED HER. HER SON CAME IN THIS EVENING TO VISIT, NO FURTHER CHANGES, CALL LIGHT IN REACH.
--- NOTE | 2019-05-09 22:31 | NUR ---
1930 PT RESTING COMFORTABLY IN BED; ALERT PERSON ONLY; VERY [place]; CONTACT PRECAUTIONS INTACT; WOUND VAC INTACT LLE MEDIAL ASPECT AT 120 MM/HG CONTINUOUS SUCTION. 0 RESTING COMFORTABLY IN BED.
[2019-05-10 04:20] LABS: BASOPHILS ABSOLUTE AUTO 0.04 K/mm3 (0.00-0.23); BASOPHILS PERCENT AUTO 1 % (0-2); EOSINOPHILS ABSOLUTE AUTO 0.77 K/mm3 (0.00-0.68); EOSINOPHILS PERCENT AUTO 12 % (0-6); Hematocrit 35.7 % (33.0-51.0); Hemoglobin 11.1 g/dL (11.5-16.0); IMMATURE GRAN ABSOLUTE AUTO 0.03 K/mm3 (0.00-0.10); IMMATURE GRAN PERCENT AUTO 1 % (0-1); LYMPHOCYTES ABSOLUTE AUTO 0.83 K/mm3 (0.84-5.20); LYMPHOCYTES PERCENT AUTO 13 % (21-46); MONOCYTES ABSOLUTE AUTO 0.49 K/mm3 (0.16-1.47); MONOCYTES PERCENT AUTO 7 % (4-13); Mean Corpuscular HGB 30.9 pg (26.0-34.0); Mean Corpuscular HGB Conc 31.1 g/dL (31.5-36.5); Mean Corpuscular Volume 99 fL (80-100); Mean Platelet Volume 9.6 fL (9.1-12.4); NEUTROPHILS ABSOLUTE AUTO 4.48 K/mm3 (1.96-9.15); NEUTROPHILS PERCENT AUTO 67 % (41-73); Platelet Count 304 K/mm3 (150-400); RDW Coefficient Variation 15.7 % (11.7-14.2); RDW Standard Deviation 57.3 fL (35.1-46.3); Red Blood Cell Count 3.59 M/mm3 (3.80-5.20); White Blood Cell Count 6.64 K/mm3 (4.00-11.30)
[2019-05-10 04:41] LABS: Anion Gap 6 mmol/L (6-16); Blood Urea Nitrogen 9 mg/dL (8-24); Bun/Creatinine Ratio 13.5 (12.0-20.0); C-REACTIVE PROTEIN, EXT RANGE 0.665 mg/dL (0.000-0.300); CO2, Blood 28 mmol/L (21-32); Calcium, Blood 8.2 mg/dL (8.5-10.1); Chloride, Blood 107 mmol/L (98-108); Creatinine, Blood 0.67 mg/dL (0.40-1.00); Glomerular Filtration Rate >60 (60-); Glucose, Blood 89 mg/dL (70-99); Potassium, Blood 3.3 mmol/L (3.5-5.5); Sodium, Blood 141 mmol/L (136-145)
--- NOTE | 2019-05-10 05:39 | NUR ---
SHIFT SUMMARY: 83 Y/O SLENDER FEMALE HAD RESTLESS NIGHT FIRST 1/2 SHIFT WITH PATIENT ATTEMPTING TO REMOVE ATTENDS (INCONTINENT BOWEL/BLADDER); PT WAS CLEANSED UP BY STAFF AND HOSPITAL PANTS WERE APPLIED BACKWARDS IN EFFORT TO ASSIST KEEPING FROM PULLING OFF ATTENDS AND PLACING FINGERS IN ANUS/VAGINAL AREA WITH GOOD RESULTS NOTED; ALERT TO PERSON ONLY; PT WAS GIVEN MELATONIN 5MG PO LATE IN SHIFT AND RESTED COMFORTABLY REST OF SHIFT; NO PAIN VOICED OR NOTED; BED ALARM APPLIED, BED LOW POSITION WITH CALL LIGHT AT SIDE; CONTACT PRECAUTIONS MAINTAINED.
--- NOTE | 2019-05-10 08:00 | NUR ---
pt laying in bed with eyes closed, wakes easily, is pleasant and coopertive with care, follows commands well, she denies pain at this time, but will change that with any movement, did give her a tramadol, she is oriented to herself only, follows some commands, takes po meds without diff, lungs are dim t/o, resp even and unlabored, no cough noted, hrr, tele in place, sr per monitor, see strip, no edema noted, wound vac to left le, changed yesterday, extensive wounds to legs, see chart, incont of urine or stool, attends in place with pjs in place to keep her from digging, moves upper ext well, helps turn, suzie, call light in reach.
--- NOTE | 2019-05-10 17:35 | NUR ---
pt unchanged, family in to visit, has been turned and changed every two hrs, medicated twice for pain, v.s. stable, otherwise no acute changes this shift, call light in reach.
--- NOTE | 2019-05-10 18:31 | NUR ---
pt was made medical status today, will be sending to medical third floor after reporting off to [facility]. will take via bed.
--- NOTE | 2019-05-10 19:48 | NUR ---
SHIFT SUMMARY- PT TRANSFERED TO MEDICAL FLOOR FROM PCU RECIEVED REPORT FROM SANDRO BRENNER. PER REPORT THERE ARE NAMES OF PEOPLE THAT PT SHOULD NOT BE IN CONTACT WITH ON THE FRONT OF THE CHART, SECURITY IS TO BE CALLED IF THEY COME IN. PT HAS DEMENTIA AND WILL DIG FOR STOOL. PT HAS ATTENDS IN PLACE PJ PANTS ON BACKWARDS WITH THE GOWN TUCKED IN TO PREVENT THIS. PT ARRIVED AT THE TIME OF SHIFT REPORT. PASSED ON TO NIGHT SANDRO.
[2019-05-11 05:45] LABS: Anion Gap 6 mmol/L (6-16); Blood Urea Nitrogen 10 mg/dL (8-24); Bun/Creatinine Ratio 16.9 (12.0-20.0); CO2, Blood 28 mmol/L (21-32); Calcium, Blood 8.3 mg/dL (8.5-10.1); Chloride, Blood 105 mmol/L (98-108); Creatinine, Blood 0.59 mg/dL (0.40-1.00); Glomerular Filtration Rate >60 (60-); Glucose, Blood 84 mg/dL (70-99); Potassium, Blood 3.7 mmol/L (3.5-5.5); Sodium, Blood 139 mmol/L (136-145)
--- NOTE | 2019-05-11 10:00 | NUR ---
SPOKE TO DR GURROLA ABOUT PT RAE AREA. (PICTURES IN CHART). POSSIBLE VIRAL ISSUE DR VIEWED THE PICTURES. WILL ATTEMPT A VIRAL SWAB IF A NEWLY OPENED VESICAL IS AVAILABLE TO SWAB, SURFACE SWAB WILL BE IN EFFECTIVE.
--- NOTE | 2019-05-11 12:00 | NUR ---
PT HAD RAE CARE PERFORMED NO SEALED OR NEWLY OPENED VESICLES AVAILABLE FOR SWABS.
--- NOTE | 2019-05-12 05:23 | NUR ---
ANGLE BENDER SUMMARY Patient unable to rest of stop scratching skin at all overnight. MD notified, order rec'd for mittens, and to change interval on po benedryl to q 4hours and use in conjunction with topical benedryl. All of the clusterlike lesions in rock rectal/vaginal area are now scratched open. two large incontinence overnight. no stool. patient hands in mouth, then scratching all over. minimal complaint of pain, just obvious anxiety and agitation
--- NOTE | 2019-05-12 15:52 | NUR ---
PT HAS BEEN SLEEPING T/O THE DAY, SHE HAD SOME OBVIOUS PAIN THIS MORNING. PT HAS MITTENS IN PLACE AND SHE SEEMS TO BE TOLLERATING THEM QUITE WELL. THIS MORNING SHE HAD THEM BOTH TUCKED UP UNDER HER CHIN WITH A GRIN ON HER FACE AND WHEN SHE WAS WOKE BY STAFF SHE WAS PLEASENT. PT IS ON THE MONITORS AND THEY HAVE CALLED A FEW TIMES WHEN THE PT TOOK THE MITTS OFF. WHEN STAFF ARE IN THE ROOM SHE SAYS "I'M GONNA TAKE THESE OFF IN A LITTLE BIT." SHE DOES NOT APPEAR TO BE IRRITATED WHEN SHE SAYS THIS. PT HAS TRIED TO BAT AT HER IV WITH THE MITTS, WITHOUT THEM I AM SURE SHE WOULD HAVE PULLED OUT THE IV. PT HAS VERY LARGE WOUNDS THAT STARTED AN IV THAT SHE PULLED OUT. PT SKIN IS VERY FRAGILE AND TEARS EASILY, IF SHE TRIES TO REMOVE A BANDAGE IT COULD CAUSE A VERY LARGE WOUND.
--- NOTE | 2019-05-12 19:28 | NUR ---
SHIFT SUMMARY- PT HAS HAD NO ACUTE CHANGES SINCE THE PREVIOUS NOTE. NO S&S OF DISTRESS NOTED. PT TOLLERATING THE MITTS WELL AT THIS TIME. DOES NOT APPEAR TO BE ITCHING AT THIS TIME. PER REPORT FROM LAST NIGHTS RN THE PT PO BENADRYL DIDN'T SEEM TO WORK FOR SEVERAL HOURS AFTER THE PT RECIEVED IT.
--- NOTE | 2019-05-13 01:12 | NUR ---
05/13/19 0115 PT REMOVED MITTEN AND WAS SCRATCHING CHEST AND GROIN AREA. INCONTINENT BRIEF CHANGED AND MEDICATED FOR ITCHING PER MAR. REPOSITIONED IN BED AND ENCOURAGED HER TO SLEEP.
--- NOTE | 2019-05-13 07:26 | NUR ---
05/13/19 0610 PT REPOSITIONED Q 2 HOURS. PT HAS MITTENS TO PREVENT SEVERE ITCHING OF GROIN AND SKIN. VITALLS REMAIN STABLE. FREQUENT RAE-CARE GIVEN DUE TO INCONTINENCE.
--- NOTE | 2019-05-13 16:07 | NUR ---
SUMMARY PT IS A/O X 1, CALM, GENERALLY PLEASANT. BEDREST T/O DAY, TURNING Q2 & SUPPORTING w PILLOWS. SHE WAS IN RESTRAINT MITTENS @ ONSET OF SHIFT D/T SCRATCHING SKIN UNTIL BLEEDING HOWEVER SHE CONTINUALLY IS ABLE TO REMOVE, DR GURROLA STATE TO D/C. REQUIRES FREQUENT REDIRECT. SHE SHE HAS RAE AREA RASH/HERPES, ANTI-VARAL ORDERED, NYSTATIN CREAM TO AREA. THIS AFTERNOON APPLIED BENADRYL CREAM & ORAL BENADRYL TO RELIEVE ITCHING SOMEWHAT. COCCYX ULCER CLEANED, NEW DRSG APPLIED. DR EDWARDS & OYSTER CULTURIST CHANGE L LEG WOUND VAC DRSG. EXUDRY DRSG TO L WELLS. NEW PHOTOS TAKEN. PT SON & GRAND-DAUGHTER IN MOST OF DAY, ABLE TO SPEAK w & HOSE OPERATOR. VSS.
--- NOTE | 2019-05-13 23:18 | NUR ---
05/13/192144 RT FOOT DRESSING CHANGED. NO DRAINAGE NOTED AT THIS TIME. PT C/O ITCHING AND ANTI-ITCH MED GIVEN PER MAY.
--- NOTE | 2019-05-14 00:12 | NUR ---
05/14/19 0010 PT QUIET AND PLAYING WITH STOOL. BOAT CARPENTER AND FLOAT BOAT CARPENTER CLEANING HER UP AND CHANGING BED LINENS/GOWN.
--- NOTE | 2019-05-14 05:30 | NUR ---
05/14/19 0530 SLEPT BETTER LAST NIGHT KARIME. AFTER ANTI-ITCHING MED. DRESSINGS AND WOUND VAC INTACT. TURNED Q 2 HOURS. MULTIPLE SKIN ISSUES AND CARE GIVEN ORDERED AND PER PROTOCOL. INCONTINENT OF URINE AND STOOL THIS SHIFT WITH HER SMEARING STOOL ON BED, CONTROLS, SIDERAILS. FULL BATH GIVEN BY CNAS. VITALS STABLE.
[2019-05-14 14:53] LABS: Adenovirus F 40/41 Not Detected (NOT DETECT); Astrovirus Not Detected (NOT DETECT); Campylobacter Sp Not Detected (NOT DETECT); Cryptosporidium Not Detected (NOT DETECT); Cyclospora Cayetanensis Not Detected (NOT DETECT); E. Coli O157 Not Detected (NOT DETECT); Entamoeba Histolytica Not Detected (NOT DETECT); Enteroaggregative E. coli-EAEC Not Detected (NOT DETECT); Enteropathogenic E. coli-EPEC Not Detected (NOT DETECT); Enterotoxigenic E. coli-ETEC Not Detected (NOT DETECT); Giardia Lamblia Not Detected (NOT DETECT); Norovirus GI/GII Not Detected (NOT DETECT); Plesiomonas Shigelloides Not Detected (NOT DETECT); Rotavirus A Not Detected (NOT DETECT); Salmonella Sp Not Detected (NOT DETECT); Sapovirus Not Detected (NOT DETECT); Shiga Toxin-prod E. coli-STEC Not Detected (NOT DETECT); Shigella/Enteroin E. coli-EIEC Not Detected (NOT DETECT); Vibrio Cholerae Not Detected (NOT DETECT); Vibrio Sp Not Detected (NOT DETECT); Yersinia Enterocolitica Not Detected (NOT DETECT)
--- NOTE | 2019-05-14 18:41 | NUR ---
SUMMARY PT CONTINUES A/O X1, HX DEMENTIA. SHE IS PLEASANTLY CONFUSED. NO S/S PAIN TODAY. SHE WAS UP IN CHAIR FOR PART OF DAY, 1 ASSIST w GAIT BELT. GAIT UNSTEADY, SHE IS FRAIL/THIN/BONY. SHE CONTINUES TO ITCH/SCRATCH BACK & PERIAREA, PRN BENADRYL PO & CREAM. 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 NYSTATIN CREAM TO RAE AREA REDNESS. SHE WAS ABLE TO REACH LLE DRSG & WOUND VAC DRSG, PULLED LOOSE, REQUIRE DRSG CHANGE, DR EDWARDS NOTIFIED OF CHANGE TO WOUNDS, IN TO EXAMINE. FAMILY IN TO MEET w DR ROSE THIS AFTERNOON, QUESTIONS ANSWERED. ENGINE SERVICE REPAIRER STATE PLAN FOR HER TO TRANSFER TO SNF w WOUND VAC TOMORROW, FAMILY AWARE. SHE CONTINUES TO HAVE LOOSE STOOLS, DR GURROLA ORDER GI PANEL--NEGATIVE. VSS.
--- NOTE | 2019-05-15 00:30 | NUR ---
PT RESPIRATIONS ARE ELEVATED AT TIMES WHEN SHE IS AWAKE AND FIGETING. PT APPEARS WITHOUT DISTRESS, SATS WNL ON RA. WHEN PT IS RESTING RESP ARE E/U AND WNL.
--- NOTE | 2019-05-15 06:46 | NUR ---
SHIFT SUMMARY NO ACUTE CHANGES TO REPORT. PT HAS RESTED OFF AND ON COMFORTABLY. PT IS PLESANT, A/O TO SELF ONLY. PT CONSTANTLY PICKS AND FIGITS, SHE REMOVES HER DIAPERS AND SMEARS FECES ON BEDRAILS AND LINENS. PULLS ATTNEDS OFF AND VOIDS IN BED. PT HAS BEEN REMINDED CONSTANTLY TO NOT PICK AT ATTENDS, BUT VERY FORGETUL. WOUND VAC IN PLACE PATENT AND DRAINING. ASSESSMENT UNCHANGED. DC SNF TODAY. BED IN LOWEST POSITION, CALL LIGHT WITHIN REACH. WILL CONTINUE TO MONITOR AND REPORT TO ONCOMING RN.
--- NOTE | 2019-05-15 09:30 | NUR ---
PT PLEASANT COOP ALERT, VERY [place]. NEEDED SEVERAL RESTATEMENTS TO BE UNDERSTOOD. ALERT TO NAME, NOT OR AGE. STATES HAS 3 CHILDREN, KNOWS NAME OF ONE DAUGHTER, NOT SONS. DOES NOT KNOW DATE, YEAR, PRES, WHERE SHE IS, WHY HERE. PULLS AT GOWN, TRIES TO PLACE HANDS IN ATTENDS. H/R REG, NO MURMER NOTED. NO TELE. LUNGS CLEAR, RESP EASY, UNLABORED. ON R.A. BT X4 LAST BM UNKNOWN TO PT. VOIDS INCONT. ATTENDS CDI. WOUND VAC ON L ANKLE PATENT, NO DRAINAGE NOTED. MULT SCABS DRY. RT LEG WRAPPED IN KERLEX. RAE RED. CREAM PLACED PER ORDERS. BED IN LOW POSITION, CALL LITE IN REACH, BED ALARM ON FOR SAFETY
--- NOTE | 2019-05-15 19:11 | NUR ---
PT PLEASANTLY CONFUSED TODAY. DIGS IN ATTENDS WHEN CAN GET TO THEM. PUT PT IN PJ'S TOTRY TO AVOID. CONTINUE TO CHECK REGULARLY TO KEEP CLEEN AND DRY. NO OTHER CONCERNS AT THIS TIME. BED IN LOW POSITION, CALL LITE IN REACH, BED ALARM ON FOR SAFETY
--- NOTE | 2019-05-15 19:18 | NUR ---
Mrs. Carl was alone in room, pleasantly confused, and welcoming. She smiled easily and appeared to enjoy prayer and companionship. She was also quite sleepy. No fears presented. She denied pain. She appeared well cared-for by nursing. I will remain available to pt anf family.
--- NOTE | 2019-05-16 04:17 | NUR ---
SHIFT SUMMARY PATIENT HAD NO ACUTE CHANGES OBSERVED. AXO TO SELF. BEDFAST AND MILLE LACS. WOUND VAC LEFT ANKLE. RIGHT LEG WRAPPED WITH KERLEX. VSS/AFEBRILE. TAKES MEDICATION WHOLE IN APPLE SAUCE. NO IV ACCESS. ABLE TO SLEEP T/O SHIFT. DENIES SOB AND N/V. CALL LIGHT IN REACH. BED IN LOWEST POSITION AND ALARM ACTIVATED. WILL CONTINUE TO MONITOR UNTIL DAY SHIFT NURSE ASSUMES CARE.
--- NOTE | 2019-05-16 14:00 | NUR ---
Clinical Visit: Pt is happy and holding a small stuffed animal. Ching, pt's granddaughter, is at bedside. Ching is attentive to her grandmother's needs and conversing easily with her. Discussed care with Ching. Reviewed that pt may benefit from hospice services if she starts getting sick more often. Discussed pt's prior care and future care, instructed that if she has recurrent readmissions to the hospital, pt likely at end of life stage. Ching states that the family has spoken about this. They have made no decisions regarding this option, but it has been mentioned. Pt's decision maker is her son, Ching's uncle. Assisted with attends change. Pt is very painful in her back when the bed is flat. Repositioned and sat up in bed to relieve symptom. Her pain is severe when not sitting up. Allowed Ching to discuss concerns. She is very upset about the pt's daughter's care of her. Reviewed this and listened therapeutically. Will be available for family and pt to discuss advance care planning further. Pt too demented to fill out an advance directive, however, her family has signed a POLST form. No immediate palliative care concerns at this time. Please notifiy palliative care if change in condition or if family requests more information on future cares and hospice.
--- NOTE | 2019-05-16 21:57 | NUR ---
PATIENT WATCHING TV WITH STUFFED ANIMAL IN HAND. DENIES PAIN, SOB, AND N/V. CALL LIGHT IN REACH.
--- NOTE | 2019-05-17 03:54 | NUR ---
SHIFT SUMMARY PATIENT HAD NO ACUTE CHANGES OBSERVED. AXOX 1-2. HX DEMENTIA. BEDREST. TAKES MEDICATION ONE EACH WITH APPLESAUCE. NO IV ACCESS. WOUND VAC LLE. PATIENT UP WATCHING TV FIRST HALF OF SHIFT. PATIENT PULLED AT ATTENDS AND SMEARED FECAL X ONE EVENT. VSS/AFEBRILE. DENIES PAIN, SOB, AND N/V. CALL LIGHT IN REACH. BED IN LOWEST POSITION. WILL CONTINUE TO MONITOR UNTIL DAY SHIFT NURSE ASSUMES CARE.
--- NOTE | 2019-05-17 18:47 | NUR ---
SHIFT SUMMARY. PT LETHARGIC THIS AM, APPEARED TO BE SLEEPING. PT UP TO CHAIR FOR LUNCH AND DINNER. POOR MEAL INTAKE SUPPLEMENT GIVEN. PT DENIES PAIN, SOB, N/V. WOUND CARE COMPLETED THIS AM BY CN. NO NEW CHANGES OR CONCERNS.
--- NOTE | 2019-05-18 05:28 | NUR ---
SUMMARY PT REPOSITIONED ORDERED. PT WOUND VAC OPERATING WELL. MEPILEX PLACED ON SACRUM AND OTHER WOUNDS. PT REMAINS CONFUSED BUT FOLLOWS DIRECTIONS. PT HAS SLEPT WELL AFTER NIGHT MEDS. CALL LIGHT IN REACH BED ALARM ON.
--- NOTE | 2019-05-18 08:57 | NUR ---
PATIENT DID NOT EAT BREAKFAST THIS SHIFT. PATIENT STATED SHE WAS NOT HUNGRY. I LEFT HER BANNANA AND ENSURE FOR HER FOR LATER WHEN SHE GETS HUNGRY. SHE AGREED TO LET ME LEAVE THOSE IN THE ROOM. RN WAS NOTIFIED.
--- NOTE | 2019-05-18 17:17 | NUR ---
SHIFT SUMMARY- PT IS COOPERATIVE AND PLESANT. CHANGED HER BANDAGES THIS SHIFT. SHE HAS BEEN SLEEPING FOR MUCH OF THIS SHIFT, BUT AWAKENS EASILY. SHE HAS HAD A POOR APPETITE THIS SHIFT, HAVE BEEN ENCOURAGING HER TO EAT.
--- NOTE | 2019-05-18 22:32 | NUR ---
2214 PT HAD LARGE EMESIS BROWN COLORED FLUID; VITALS SIGNS ARE STABLE; PT YELLING OUT AT TIMES VERY LOUD VOICE; LUNG SOUNDS ARE CLEAR. 2229 Elio GRAY NP CALLED AND ADVISED OF ALL THE ABOVE; CONTINUE TO MONITOR VITALS; NO ORDERS RECEIVED. PLAN TO RECHECK ASSESS AND PERFORM REPEAT VITAL SIGNS AT 2300 AND 2400.
--- NOTE | 2019-05-19 04:26 | NUR ---
SHIFT SUMMARY: 83 Y/O SLENDER FEMALE HAD RESTLESS SHIFT AT TIMES WITH C/O ABD PAIN (NAUSEA WITH LARGE AMOUNT YELLOW/BROWN EMESIS NOTED); PORTABLE ABD XRAY WAS PERFORMED AND READ BY DR TORRES; PT WAS GIVEN ZOFRAN 4MG IVP X 1 WITH RELIEF FELT; ABD ROUND AND FIRM TO TOUCH; NASOGASTRIC TUBE NOT ORDERED AT THIS TIME PENDING IF PATIENT HAS MORE EPISODES OF VOMITING AND HOSPITALIST WOULD LIKE TO THEN PERSONALLY EVALUATE PATIENT; ALERT AND ORIENTED X 1; VERY HARD OF HEARING; PT WAS BLADDER SCANNED X 1 WITH READING LESS THAN 60ML AFTER INCONTINENCE VOID; PT LLE WOUND VAC INTACT AT 120 MM/HG CONTINUOUS SUCTION; BED ALARM APPLIED, BED LOW POSITION WITH CALL LIGHT AT SIDE.
--- NOTE | 2019-05-19 09:00 | NUR ---
PATIENT DID NOT EAT BREAKFAST THIS SHIFT DUE TO BEING NPO AT THIS TIME. RN NOTIFIED.
--- NOTE | 2019-05-19 11:56 | NUR ---
PATIENTS ATTENDS WERE CHECKED AND THEY WERE CLEAN AND DRY.
[2019-05-19 12:47] LABS: Hematocrit 41.6 % (33.0-51.0); Hemoglobin 13.1 g/dL (11.5-16.0); Mean Corpuscular HGB 31.7 pg (26.0-34.0); Mean Corpuscular HGB Conc 31.5 g/dL (31.5-36.5); Mean Corpuscular Volume 101 fL (80-100); Mean Platelet Volume 9.6 fL (9.1-12.4); Platelet Count 418 K/mm3 (150-400); RDW Coefficient Variation 16.8 % (11.7-14.2); RDW Standard Deviation 62.1 fL (35.1-46.3); Red Blood Cell Count 4.13 M/mm3 (3.80-5.20); White Blood Cell Count 8.98 K/mm3 (4.00-11.30)
[2019-05-19 13:02] LABS: Anion Gap 6 mmol/L (6-16); Blood Urea Nitrogen 36 mg/dL (8-24); Bun/Creatinine Ratio 50.6 (12.0-20.0); CO2, Blood 28 mmol/L (21-32); Calcium, Blood 9.6 mg/dL (8.5-10.1); Chloride, Blood 108 mmol/L (98-108); Creatinine, Blood 0.71 mg/dL (0.40-1.00); Glomerular Filtration Rate >60 (60-); Glucose, Blood 140 mg/dL (70-99); Potassium, Blood 4.6 mmol/L (3.5-5.5); Sodium, Blood 142 mmol/L (136-145)
--- NOTE | 2019-05-19 14:23 | NUR ---
PATIENT DID NOT EAT LUNCH THIS SHIFT DUE TO BEING NPO AT THIS TIME. RN NOTIFIED.
--- NOTE | 2019-05-19 14:31 | NUR ---
PT HAS VOMITED TWICE THIS SHIFT. SPOKE WITH DR. GURROLA. WILL START PT ON FLUIDS.
--- NOTE | 2019-05-19 17:26 | NUR ---
PATIOENT DID NOT EAT DINNER THIS SHIFT DUE TO BEING NPO AT THIS TIME.
--- NOTE | 2019-05-19 17:34 | NUR ---
SHIFT SUMMARY- PT ALERT, PLESANT AND COOPERATIVE. SHE VOMITED TWICE THIS SHIFT. NOTIFIED DR. GURROLA. PT PLACED ON NPO AND IV FLUIDS WERE ORDERED. PROVIDED LEMON SWABS FOR DRY MOUTH. SHE IS INCONTINENT OF URINE, HAS NOT HAD A BM THIS SHIFT. HER ABDOMEN IS DISTENDED AND TENDER. SPOKE WITH GILES IN PALLATIVE CARE ABOUT TOUCHING BASE WITH FAMILY ON HER CONDITION.
--- NOTE | 2019-05-20 07:29 | NUR ---
SHIFT SUMMARY: PATIENT IS A&O TO SELF, REPORTING PAIN IN COCCYX THAT IS RELIEVED WITH SKIN CARE AND T&P, THERE IS A STAGE II ULCER ON COCCYX WITH ORDER TO NO USE ADHESIVE BOARDER DRESSINGS ON SKIN, CALAZINE SKIN PASTE IS USED TO PROTECT SKIN. PATIENT IS INC. OF URINE, NO BM THIS SHIFT. PATIENT HAD NO REPORTS OF NAUSEA BUT ZOFRAN WAS GIVEN PRIOR TO ORAL MEDS TO PREVENT N/V. PATIENT WAS ABLE TO TAKE AND TOLERATE ALL ORAL MEDICATIONS EXCEPT JEVEN. BOWEL SOUNDS ARE HYPOACTIVE AND ABD. IS DISTENDED. 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
--- NOTE | 2019-05-20 17:17 | NUR ---
SHIFT SUMMARY PT RESTING QUIETLY AT START OF SHIFT. NPO PER ORDERS, BUT PT NEEDING PO MEDS AND WANTING WATER. DR GURROLA NOTIFIED AND DISCUSSED PT STATUS. NEW ORDERS RECEIVED TO TRY TO START PT BACK ON CL AND GIVE PO MEDS. IF ABLE TO TOLERATE, W/O N/V, THEN D/C IVF'S AND POSSIBLY REASSESS TO ADVANCE DIET FURTHER IF PT HAS BM. PT WAS ABLE TO TOLERATE ICE WATER, APPLE JUICE, AND ROBSON. AFTER SEVERAL HOURS, PT HAD SM AMT OF BROWN EMESIS; LESS THAN 30cc. GOWN AND LINENS CHANGED. PT'S ABD BECOMING DISTENDED THRU OUT THE DAY AND PT HAS MENTIONED DISCOMFORT A COUPLE OF TIMES. ZOFRAN GIVEN X1 C/O NAUSEA, THIS AFTERNOON. PT IS VERY THIN AND FRAIL. WOUND VAC TO LLE. PER REPORT, TO BE CHANGED BY DR EDWARDS OR FORMS EXAMINER DESTINY, THIS EVENING. PT HAS BEEN REPOSITIONED OFF BUTTOCKS FREQUENTLY TODAY. REMAINS IN CONTACT ISO FOR ESBL IN THE URINE. CALL LT IN REACH. BED ALARM ON FOR SAFETY.
--- NOTE | 2019-05-20 21:51 | NUR ---
medicated for pain and nausea and crushed meds because PT has been known to spit out meds. PT spit out all crushed meds. Will notify MD of Refusals. PT requesting cold water repeatedly. Has tried clear liquid on day shift and had abd pain and nausea. Family had been in earlier and asking when PT will be DC. There is a bed available at [facility] per Family. SNF recommended by for wound care.
--- NOTE | 2019-05-21 04:22 | NUR ---
83 year old Female with bilat LE vascular ulcers and skattered skin issues continues in isolation for ESBL in urine. She was NPO after restarting clear liquid diet on day shift and tolearing poorly. She spit out all crushed meds at HS. Julieta Valdez DRILL PRESS SET UP OPERATOR RADIAL updated. No new orders. PT had round firm abd , medicated x 1 for nausea. Rectal supp given to promote BM and PT had medium firm BM. She is on camera monitor & tech called me to report PT digging in attends. PT incontinent of bowel and bladder. may have another BM per PT report. PT has good effect pf biscodyl rectal suppository. PT has severe malnutrition with poor wound healing. LT LE wound vac changed. PT has Family who said they went to [facility] as potential [facility] to Dc and they have a open Female bed. no attempts to climb out of bed. Very poor appetite request water frequently.
--- NOTE | 2019-05-21 18:25 | NUR ---
SHIFT SUMMARY... PT HAD SWALLOW EVAL TODAY AND IS TO HAVE NEACTAR THICK LIQUID AND PUREE DIET. PT WAS UP IN THE CHAIR W/1 PERSON ASSIST W/FWW FOR APROX 45 MINS. PT'S WOUND VAC DRESSING IS C/D/I AND WOUND VAC HAS GOOD SUCTION. PT'S FAMILY AT THE BEDSIDE APROX 1 HOUR THIS SHIFT. VS HAVE BEEN STABLE T/O SHIFT. PT HAS HAD MULTIPLE LOOSE STOOLS T/O SHIFT. CALL LIGHT IN REACH WILL CONTINUE TO MONITOR UNTIL REPORT IS GIVEN TO ONCOMING RN.
--- NOTE | 2019-05-22 00:45 | NUR ---
83 year old PT continues in contact isolation for ESBL in urine . She continues to be incontient of large amts urine. Continues in IV fluids. Diet resumed after bowel ileus resolved. PT had large amts of stool after biscodyl supp given. Continues with very poor oral intake. Speech therapy eval recommended pureed diet with nectar thick liquids. She did swallow meds crushed in small amts applesauce. Wound Vac patent to lt le. Medicated x 1 with ultram 50 mg for co back pain with helpful effect.
--- NOTE | 2019-05-22 18:52 | NUR ---
No acute changes noted. No current complaints of pain or discomfort noted. Patient refuses most meals and getting out of bed. Wound vac changed to day. No other issues noted. Will continue to monitor for changes.
--- NOTE | 2019-05-23 00:45 | NUR ---
83 year old Female PT with dementia and vascular ulcers here since 05/03/2019 continues to decline oral intake and continues on IVfluids ns at 75 ml HR. Pleasant confusion. Denies acute pain but given tylenol 650 mg at hs for back pain with helpful effect. PT very waek and emaciated appears malnourished. No attempts to climb out of bed. Refuses oral supplements and Jack. Refuses to eat, takes sips of water. Meds crushed in applesauce takes small bites but did not spit out. Wounds bilat le dressing changed 05/22/2019 on day shift. Minimal drainage from lt le vascular ulcer. Incontinent of urine, no BM yet this shift. No family observed this shift.
[2019-05-23 15:26] LABS: Hematocrit 36.2 % (33.0-51.0); Hemoglobin 11.9 g/dL (11.5-16.0); Mean Corpuscular HGB 32.2 pg (26.0-34.0); Mean Corpuscular HGB Conc 32.9 g/dL (31.5-36.5); Mean Platelet Volume 9.7 fL (9.1-12.4); Platelet Count 246 K/mm3 (150-400); RDW Standard Deviation 57.8 fL (35.1-46.3); White Blood Cell Count 6.99 K/mm3 (4.00-11.30)
[2019-05-23 15:29] LABS: Mean Corpuscular Volume 98 fL (80-100)
[2019-05-23 15:47] LABS: Albumin, Blood 2.2 g/dL (3.4-5.0); Anion Gap 8 mmol/L (6-16); Blood Urea Nitrogen 12 mg/dL (8-24); Bun/Creatinine Ratio 28.8 (12.0-20.0); CO2, Blood 22 mmol/L (21-32); Calcium, Blood 7.9 mg/dL (8.5-10.1); Chloride, Blood 108 mmol/L (98-108); Creatinine, Blood 0.42 mg/dL (0.40-1.00); Glomerular Filtration Rate >60 (60-); Glucose, Blood 75 mg/dL (70-99); Potassium, Blood 2.5 mmol/L (3.5-5.5); Sodium, Blood 138 mmol/L (136-145)
--- NOTE | 2019-05-23 19:23 | NUR ---
SHIFT SUMMARY PATIENT DENIES PAIN, NAUSEA, AND SHORTNESS OF BREATH. PATIENT TURNED Q2, REFUSES OOB. PT WORKED WITH PATIENT TODAY. POOR PO INTAKE. NUTRITION CONSULTED TODAY. PALLIATIVE CARE ALSO CONSULTED ON PATIENT. CALL LIGHT IN REACH.
--- NOTE | 2019-05-23 21:22 | NUR ---
2057-BROOK WAS LAYING IN BED WITH HER EYES CLOSED. SHE OPENED THEM WHEN SPOKEN TO. DENIED PAIN AND DISCOMFORT. LUNG SOUNDS CLEAR THROUGHOUT. NO CONGESTION NOTED. ATTENDS DRY. WOUND VAC TO THE LEFT LE SUCTION AT 120MMGH. DRESSING TO POSTERIOR LLE, R FOOT, BUTTOCKS, ALL INTACT. MILD SWELLING IN THE LLE. HEEL PROTECTORS ON. BED ALARM IS ON. CALL LIGHT WAS ON THE FLOOR HANDED IT BACK TO HER. SHE TOOK ALL MEDS CRUSHED IN APPLESAUCE EXCEPT HER ROBSON, WHICH SHE REFUSED. WILL CONTINUE TO MONITOR.
--- NOTE | 2019-05-24 05:27 | NUR ---
SHIFT SUMMARY: BROOK WAS PLEASANT AND COOPERATIVE ALL NIGHT. SHE WAS UP HALF OF THE NIGHT WATCHING TV. MEDICATIONS WERE GIVEN PER ORDERS EXCEPT SHE REFUSED THE ROBSON, NO MATTER HOW I TRIED TO GIVE IT TO HER. WOUND VAC REMAINED PATENT AND DRAINING SLIGHT AMOUNT OF SEROUS SANGUOUS FLUID. DRESSINGS TO LEGS REMAINED INTACT, CHANGED DRESSING TO BOTTOM. VS REMAINED WNL. NO PAIN WAS NOTED. NO ACUTE CHANGES THIS SHIFT.
--- NOTE | 2019-05-24 16:06 | NUR ---
Met with patients jaylauracayetano to discuss plan of care. pt carmen will speak with family they understand need for hospice care she is sure they will agree. She had many questions about the detail and wound care. Review of hospice and suggested we stay the course and ischareg her to hospice reveiw of how hopsice will care for her wounds and needs. She was comforted and understadning. Updated patient centered care specialist of placement needs and plan family will give us and aswer probably tomorrow.
--- NOTE | 2019-05-24 17:30 | NUR ---
SHIFT SUMMARY PATIENT DENIES PAIN, NAUSEA, AND SHORTNESS OF BREATH. PATIENT REPOSITIONED Q2. PATIENT DECLINES TO GET OUT OF BED. PATIENT HAS ALMOST NO PO INTAKE AND STATES SHE IS NOT HUNGRY. PATIENT'S GRANDDAUGHTER CAME TO VISIT AND SPOKE WITH PALLIATIVE CARE. THE FAMILY WILL DISCUSS HOSPICE. CALL LIGHT IN REACH.
--- NOTE | 2019-05-24 22:06 | NUR ---
1935-BROOK WATCHING TV, ASKING FOR ORANGE JUICE. WHEN OFFERING IT TO HER SHE WILL ONLY TAKE A SIP AND SAY SHE IS DONE. THEN WILL ASK AGAIN AND ONLY WILL TAKE A SIP. SHE DOES NOT WANT ANYTHING ELSE TO DRINK OR EAT. ATTENDS DRY. WOUND VAC HOOKED TO SUCTION. CALL LIGHT IN REACH, AND BED ALARM IS ON.
--- NOTE | 2019-05-25 04:44 | NUR ---
SHIFT SUMMARY: BROOK HAS BEEN UP THE ENTIRE SHIFT, WATCHING TV AND TALKING TO PEOPLE IN THE ROOM. SHE CONTINUED TO CALL OUT FOR DOM. WHEN ASKED IF SHE WANTS TO GO TO SLEEP SHE WOULD SAY SHE IS NOT TIRED. SHE STILL CONTANTLY WANTS ORANGE JUICE BUT WILL ONLY TAKE A SIP OR TWO. SHE DID HAVE BM THIS SHIFT, AND DID PUT HER HANDS IN HER STOOL, INFORMED HER NOT TO DO THAT. VS HAVE BEEN STABLE, SHE HAS BEEN COOPERATIVE. NO CHANGES TO THE WOUNDS, WOUND VAC STAYED INTACT. IV FLUIDS CONTINUED TO INFUSE, IV PATENT. NO ACUTE CHANGES TO REPORT.
[2019-05-25 05:56] LABS: Hematocrit 39.6 % (33.0-51.0); Hemoglobin 13.1 g/dL (11.5-16.0); Mean Corpuscular HGB 31.8 pg (26.0-34.0); Mean Corpuscular HGB Conc 33.1 g/dL (31.5-36.5); Mean Corpuscular Volume 96 fL (80-100); Mean Platelet Volume 9.9 fL (9.1-12.4); Platelet Count 301 K/mm3 (150-400); RDW Standard Deviation 56.3 fL (35.1-46.3); Red Blood Cell Count 4.12 M/mm3 (3.80-5.20); White Blood Cell Count 9.61 K/mm3 (4.00-11.30)
[2019-05-25 06:26] LABS: Albumin, Blood 2.5 g/dL (3.4-5.0); Anion Gap 10 mmol/L (6-16); Blood Urea Nitrogen 10 mg/dL (8-24); CO2, Blood 24 mmol/L (21-32); Calcium, Blood 8.2 mg/dL (8.5-10.1); Chloride, Blood 105 mmol/L (98-108); Creatinine, Blood 0.53 mg/dL (0.40-1.00); Glomerular Filtration Rate >60 (60-); Glucose, Blood 68 mg/dL (70-99); Phosphorus, Blood 1.9 mg/dL (2.5-4.9); Sodium, Blood 139 mmol/L (136-145)
[2019-05-25 06:27] LABS: Potassium, Blood 2.1 mmol/L (3.5-5.5)
--- NOTE | 2019-05-25 06:42 | NUR ---
RECEIVED CRITICAL LOW POTASSIUM AT 2.1. ATTEMPTED TO CONTACT HOSPITALIST TWICE EACH TIME PHONE JUST WENT TO VOICEMAIL. WILL PASS ONTO DAYSHIFT.
--- NOTE | 2019-05-25 06:46 | NUR ---
DR. BLAIR CALLED BACK NEW ORDER FOR POTASSIUM NOTED.
--- NOTE | 2019-05-25 11:42 | NUR ---
1140 SPOKE WITH SON JASIEL REGARDING FAMILIES WISH WITH REGARD TO CONTINUING CARE. SON STATED HE WAS LEANING TOWARDS COMFORT/ HOSPICE CARE BUT WANTED TO TALK WITH HIS DAUGHTERS FIRST. STATED HE WOULD BE IN ON MondayMAY 25.
--- NOTE | 2019-05-25 17:56 | NUR ---
PT REFUSES ANY FOOD OTHER THAN A COUPLE OF SPOONFULLS OF APPLESAUCE WITH HER MEDS. SHE CONTINUES TO BE CONFUSED BUT PLEASANT. SHE IS EAGER TO GET BACK TO [place] AND TELLS STAFF TO LET HER GO BACK HOME. FAMILY TALKED WITH NURSE TODAY REGARDING COMFORT CARE AND WILL BE IN MONDAY TO DISCUSS THIS WITH PALLATIVE CARE. NO ACUTE CHANGES TO PT. NO DISTRESS NOTED.
--- NOTE | 2019-05-25 22:28 | NUR ---
1915- GLADYSElma IS YELLING IN HER ROOM, SHE ASKED FOR HELP, SAYING SHE NEEDS TO GET ON HER PJ'S. SHOWED HER SHE IS IN HER NIGHT GOWN. ATTENDS IS DRY. WOUND VAC HOOKED TO SUCTION. SHE DENIED ANY FOOD OR DRINK WHEN OFFERED TO HER. OFFERED TO REPOSITION HER, SHE DENIED THAT. CALL LIGHT IN REACH, WILL CONTINUE TO MONITOR.
--- NOTE | 2019-05-26 03:02 | NUR ---
BROOK IS SLEEPING COMFORTABLY TONIGHT, IV CONTINUES TO INFUSE WITH NO DIFFICULTY. CALL LIGHT IN REACH WILL CONTINUE TO MONITOR.
--- NOTE | 2019-05-26 04:35 | NUR ---
SHIFT SUMMARY: BROOK HAS A BETTER NIGHT TONIGHT. SHE ACTUALLY SLEPT WELL THROUGHOUT THE SHIFT. SHE ONLY AWAKENED FOR ATTENDS CHANGES, REPOSITION CHANGES AND VITALS. SHE HAS BEEN VERY COMFORTABLE. CLINIMAX CONTINUES TO INFUSE WITH NO PROBLEMS. WOUND VAC AND DRESSINGS ALL STAYED INTACT. VITALS ALL STABLE. NO ACUTE CHANGES TO NOTE. WILL REPORT TO DAY SHIFT.
[2019-05-26 06:17] LABS: Albumin, Blood 2.1 g/dL (3.4-5.0); Anion Gap 5 mmol/L (6-16); Blood Urea Nitrogen 12 mg/dL (8-24); Bun/Creatinine Ratio 29.1 (12.0-20.0); CO2, Blood 27 mmol/L (21-32); Calcium, Blood 7.7 mg/dL (8.5-10.1); Chloride, Blood 105 mmol/L (98-108); Creatinine, Blood 0.41 mg/dL (0.40-1.00); Glomerular Filtration Rate >60 (60-); Glucose, Blood 139 mg/dL (70-99); Phosphorus, Blood 2.6 mg/dL (2.5-4.9); Potassium, Blood 2.8 mmol/L (3.5-5.5); Sodium, Blood 137 mmol/L (136-145)
--- NOTE | 2019-05-26 15:27 | NUR ---
Pal Care visit and family conference: After lengthy discussion and review of pt status family requests comfort care be initiated today and that dc planning to a memory care or LTC facility begin with plan for Hospice care to be involved where ever pt is placed. Pt lost her IV site today and family does not want IV restarted, any lab work or any agressive tx employed. Pt remains cognitively impaired but makes statements to family re: wanting to be let go. She has wind projects supervisor wounds that they are aware will not heal without significant improvement in pt's nutritional status. Pt has repeatedly declined PO intake but is asking for some specific things like coffee and chocolate today. Update called to and VO obtained for comfort care. Pt is not reporting pain per family and per RN and has not been using the ultram that is currently ordered for pain. No n/v reported recently. Primary source of anxiety has been desire to go outside to smoke. Pt cont with nicoteine patch applied. Would anticipate wound care to cover wounds only on discharge from the hospital and d/c of wound vac. Order entered for hospice referral per comfort care order set, with notes to CM on family request and progress towards applying for medicaid. They had started looking at memory care facilities and mentioned [facility]. Instr. given on Hospice, benefits, medicare coverage. THey did not specify an agency of choice at this time. They understand they will be working with care managers on dc planning starting tomorrow. Pt is not actively dying. She is enjoying the company and attention of her children and grandchildren.
--- NOTE | 2019-05-26 16:41 | NUR ---
1515 FAMILY OF PATIENT REPORTED SHE WAS IN PAIN AND NEEDED TYLENOL. THIS NURSE WENT IN AFTER PULLING MED AND ASKED THE PATIENT IF SHE WAS HURTING. SHE SAID NO, WAS JUST TIRED. I ASKED HER AGAIN IF SHE HAD PAIN ANY WHERE AND DID SHE WANT A TYLENOL. SHE AGAIN STATED SHE WAS NOT HURTING, JUST TIRED. PT WAS IN NO APPARENT DISTRESS.
--- NOTE | 2019-05-26 17:35 | NUR ---
PT PLACED ON COMFORT CARE THIS SHIFT PER FAMILY. SHE HAS BEEN RESTING MOST OF THE DAY WITH NO COMPLAINTS OF PAIN, SOB, NV. PT HAS NO APPETITE AND HAS TO BE ENCOURAGED TO EAT EVEN SMALL BITES. PT CONTINUES TO HAVE BMS . NO ACUTE CHANGES.
--- NOTE | 2019-05-26 17:37 | NUR ---
PT RESTING WITH NO COMPLAINTS OF PAIN, SOB, NV.
--- NOTE | 2019-05-26 23:39 | NUR ---
COMFORT CARE 2004 UPON ENTRY ALERT, ANSWERING QUESTIONS APPROPRIATELY. STATES NO PAIN/DISCOMFORT. WOUND VAC PATENT AND DRAINING TO SUCTION. NO ACUTE CHANGES AT THIS TIME. BED IN LOWEST POSITION; ALARM ON. CALL LIGHT WITHIN REACH. WCTM.
--- NOTE | 2019-05-26 23:41 | NUR ---
COMFORT CARE 2210 ALERT, AWAKE, AND ANSWERING QUESTIONS APPROPRIATELY. APPEARS TO BE AGITATED BY THE WOUND VAC AND CONTINUES TO PULL AT DRESSING/TUBING. DENIES PAIN/DISCOMFORT. BED IN LOWEST POSITION; ALARM ON. CALL LIGHT WITHIN REACH. WCTM.
--- NOTE | 2019-05-27 01:01 | NUR ---
COMFORT CARE 0020 ALERT AND AWAKE. APPEARS TO BE RESTING. DENIES PAIN/DISCOMFORT. STATES "IM JUST WATCHING TV". NO ACUTE CHANGES AT THIS TIME. BED IN LOWEST POSITION; ALARM ON. CALL LIGHT AND BELONGINGS WITHIN REACH. WCTM.
--- NOTE | 2019-05-27 03:32 | NUR ---
COMFORT CARE 0230 CAFETERIA WORKER IN ROOM FOR ATTENDS CHANGE; FOLLOWED BEHIND. PATIENT AWAKE AND ALERT; FOLLOWING DIRECTIONS. CONTINUED TO PICK AT DRESSING TO LEG; MAKING NEW SKIN TEAR TO BACK OF LEG, BANDAID PLACED. DRESSING CHANGED. PLACED PREVENTATIVE DRESSING TO COCCYX. STATES NO PAIN/DISCOMFORT AT THIS TIME. WCTM. BED IN LOWEST POSITION; ALARM ON. CALL LIGHT AND BELONGINGS WITHIN REACH.
--- NOTE | 2019-05-27 04:26 | NUR ---
COMFORT CARE 0015 ALERT, AWAKE PULLING AT WOUND VAC SITE/DRESSING. RE-DRESSED AREA. ASSURED HER THAT IT CANNOT BE CUT OFF OR THROWN IN THE TRASH. REQUESTED ORANGE JUICE. NO OTHER REQUESTS AT THIS TIME. BED IN LOWEST POSITION. CALL LIGHT AND BELONGINGS WITHIN REACH. WCTM.
--- NOTE | 2019-05-27 06:20 | NUR ---
SHIFT SUMMARY ALERT AND AWAKE, ANSWERS QUESTIONS APPROPRIATELY. [place]. DID NOT REST OVERNIGHT. WOUND VAC TO L ANKLE WAS PROBLEMATIC FOR PATIENT. CONTINUED TO PULL AND TUG AT DRESSING THROUGHOUT NIGHT. REPLACED OUTER DRESSING X2. EXPLAINED TO PATIENT THAT IT COULD NOT BE CUT OFF OR THROWN IN THE TRASH; DOCTOR WILL HAVE TO MAKE THAT DECISION. PATIENT NEEDS RE-INFORCEMENT ON THIS SUBJECT. NO OTHER ACUTE CHANGES OVERNIGHT. DID NOT C/O PAIN/DISCOMFORT OR SHOWED ANY OUTWARD SIGNS. MOVED FREELY IN BED. WCTM. BED IN LOWEST POSITION; ALARM ON. CALL LIGHT AND BELONGINGS WITHIN REACH. REPORT TO ONCOMING RN.
--- NOTE | 2019-05-27 06:49 | NUR ---
COMFORT CARE 0630 ALERT, AWAKE. PATIENT HAD MANAGED TO TAKE OFF WOUND VAC COMPLETELY. WET TO DRY DRESSING PLACED TO AFFECTED AREA. NO OTHER ACUTE CHANGES. BED IN LOWEST POSITION; ALARM ON. CALL LIGHT AND BELONGINGS WITHIN REACH. TM.
--- NOTE | 2019-05-27 09:54 | NUR ---
PATIENT UP WITH ASSIST IN ROOM. DENIES ANY PAIN OR DISCOMFORT. DOES NOT LIKE THE CLOCK UP ON THE WALL SO IT WAS TAKEN DOWN. GOWN CHANGED. BED ALARM SET FOR SAFETY.
--- NOTE | 2019-05-27 09:56 | NUR ---
PATIENT SLEEPING AT THIS TIME. WILL HOLD AM MEDS UNTIL SHE WAKES.
--- NOTE | 2019-05-27 12:38 | NUR ---
Pt resting in bed with her eyes closed. Pt appears comfortable with no S/S of distress at this time. Spoke with bedside RN Elida and discussed case. Elida reports intermittent agitation. No other concerns reported at this time. Spoke with Dr De Anda, discussed case and Pt's intermittent agitation Dr De Anda will place order for Seroquel. Palliative Care will remain available.
--- NOTE | 2019-05-27 13:27 | NUR ---
PATIENT CONTINUES TO REST, NO S/S OF PAIN NOTED. CALL LIGHT WITHIN REACH AND BED ALARM SET.
--- NOTE | 2019-05-27 15:14 | NUR ---
PATIENT SLEEPING AT THIS TIME. NO S/S OF PAIN OR DISTRESS NOTED. BED ALARM SET FOR SAFETY.
--- NOTE | 2019-05-27 17:04 | NUR ---
Routine spiritual care note: Mrs. Carl was alone in room and sleeping peacefully. She did not respond to voice or touch. Prayer provided at bedside while I held her hand. I will remain available.
--- NOTE | 2019-05-27 17:51 | NUR ---
PATIENT SLEPT FOR MOST OF THIS SHIFT. ATTEMPTED TO WAKE FOR MEALS, BUT PATIENT WOULD FALL RIGHT BACK TO SLEEP. DENIES ANY PAIN OR DISCOMFORT. MEPILEX CHANGED TO PRESSURE SORE ON COCCYX. WOUND VAC NOW OFF AND DRESSING TO LLE REMAINS C/D/I. PATIENT DID NOT EAT ANYTHING THIS SHIFT. PLAN IS TO GO HOME ON HOSPICE.
--- NOTE | 2019-05-28 04:12 | NUR ---
SHIFT SUMMARY ASSUMED CARE OF PT AT 1900. PT HAS BEEN NONVERBAL T/O THE NIGHT AND SLEEPING. PT AWOKE ONCE WHEN A NEW WOUND VAC WAS PLACED BUT QUICKLY FELL BACK ASLEEP. NO ACUTE CHANGES NOTED T/O THE NIGHT. RESPIATIONS STABLE, NEW PICTURES TAKEN FOR THE CHART, NEW WOUND VAC PLACED DUE TO DR HUERTA ORDER. CALL LIGHT IN REACH, BED IN LOWEST POSTION, WILL CONTINUE TO MONITOR UNTIL DAYSHIFT NURSE ARRIVES.
--- NOTE | 2019-05-28 09:07 | NUR ---
PATIENT SLEEPING AT THIS TIME. NO S/S OF PAIN OR DISCOMFORT.
--- NOTE | 2019-05-28 10:11 | NUR ---
Pt resting in bed with her eyes closed. Pt appears comfortable with no S/S of distress at this time. Spoke with Bedside RN Elida and discussed case. Pt's intake of food and fluids has significantly decrease. Pt has bites only of her breakfast and no intake of her lunch and dinner. Pt also has not eaten her breakfast this AM. Palliative Care will remain available.
--- NOTE | 2019-05-28 11:55 | NUR ---
PATIENT OFFERED NUTRITION. DOES NOT WANT THICKENED LIQUIDS OR PUREE DIET. WANTS TO EAT A REGULAR DIET. SPOKE WITH GILES FROM PALLIATIVE CARE AND HE SAID IT WAS OJ TO ORDER PATIENT A REGULAR DIET. PATIENT ALSO UPSET ABOUT HAVING WOUND VAC IN PLACE AND WANTS IT REMOVED. GILES PLANS TO CALL DR. VILA AND ASK IF THE WOUND VAC CAN BE DC'D.
--- NOTE | 2019-05-28 17:30 | NUR ---
PATIENT AWAKE AND TOLERTING REGULAR DIET. CONTIUES TO PICK AT WOUND VAC AND REQUESTING TO HAVE IT OFF. DENIES ANY PAIN. ATTENDS CHANGE AND LINEN CHANGE PER DRESSMAKER GARMENT FITTER. PATIENT HAD A BM.
--- NOTE | 2019-05-28 17:50 | NUR ---
PATIENT HAD ANOTHER BM. ATTENDS CHANGED BY DEVELOPER PROVER UPHOLSTERING. PATIENT DENIES ANY PAIN OR DISCOMFORT. PULLED WOUND VAC OFF AND REFUSES TO HAVE IT REPLACED. DRESSING PLACED TO LEFT LEG.
--- NOTE | 2019-05-28 17:52 | NUR ---
PATIENT REMOVED DRESSING TO LLE. REPORTS PAIN TO LLE, DRESSING REPLACED. PATIENT GIVEN SEROQUEL FOR ANXIETY AND TRAMADOL TO TREAT PAIN.
--- NOTE | 2019-05-28 18:33 | NUR ---
Amber spiritual care note: Mrs. Carl was alone in room and working hard to open a package of chocolate. I helped her with this and she happily chatted with me about random things. She wanted me to "put that picture back up on the wall" and open-then close blinds. She denied pain or worry, and smiled easily. I provided companionship and loving presence. She allowed me to pray for her. I will remain available to pt and family.
--- NOTE | 2019-05-29 01:04 | NUR ---
INTERMITENT REPOSITIONING. WAS AWAKE EARLIER BUT RESTING QUIETLY AT THIS TIME. CALL LIGHT IN REACH
--- NOTE | 2019-05-29 01:06 | NUR ---
RESTING QUIETLY AT THIS TIME.
--- NOTE | 2019-05-29 01:57 | NUR ---
AWAKE AT INTERVALS. NO NOTED ACUTE DISTRESS. CALL LIGHT IN REACH
--- NOTE | 2019-05-29 01:59 | NUR ---
RESTING QUIETLY. CALL LIGHT IN REACH
--- NOTE | 2019-05-29 05:37 | NUR ---
RESTING QUIETLY. INCONT - CHANGED. PT ASSISTED WITH CHANGING - ABLE TO LIFT UP BOTTOM FOR BRIEF CHANGE. CALL LIGHT IN REACH
--- NOTE | 2019-05-29 10:24 | NUR ---
PATIENT WAS DRY AT THIS TIME. ATTENDS DID NOT NEED TO BE CHANGED. PATIENT POSITIONED ON HER RIGHT.
--- NOTE | 2019-05-29 10:51 | NUR ---
NO C/O PAIN. NO DYSPNEA/SOB/SECRETIONS. NO FAMILY PRESENT. WCTM.
--- NOTE | 2019-05-29 10:52 | NUR ---
NO C/O PAIN. NO DSYPNEA/SOB/SECRETIONS. NO FAMILY PRESENT. WCTM.
--- NOTE | 2019-05-29 10:53 | NUR ---
NO C/O PAIN; PT IN NO APPARENT DISTRESS. NO DYSPNEA/SOB/SECRETIONS. NO FAMILY PRESENT. WCTM.
--- NOTE | 2019-05-29 10:53 | NUR ---
Comfort Care Visit Pt resting in bed with her eyes closed but awakens easily with gentle voice and touch. Pt denies pain at this time. Assisted Pt with a drink of orange juice per Pt request. Pt reports no concerns at this time. Spoke with Bedside SANDRO Capellan and discussed case. Palliative Care will remain available.
--- NOTE | 2019-05-29 16:36 | NUR ---
NO C/O PAIN. NO DYSPNEA/SOB/SECRETIONS. NO FAMILY IN ROOM. WCTM.
--- NOTE | 2019-05-29 16:37 | NUR ---
NO C/O PAIN / PT IN NO APPARENT DISTRESS. NO DYSPNEA/SOB/SECRETIONS. NO FAMILY IN ROOM. LLE DRESSING C/D/I. WCTM.
--- NOTE | 2019-05-29 16:40 | NUR ---
NO C/O PAIN. NO DYSPNEA/SOB/SECRETIONS. NO FAMILY PRESENT. WCTM.
--- NOTE | 2019-05-29 17:45 | NUR ---
TRANSFER OF CARE: PATIENT TRANSFERRED TO ROOM 328. REPORT GIVEN TO SANDRO FAUST.
--- NOTE | 2019-05-29 18:07 | NUR ---
PATIENT TRANSFERED TO ROOM 328. YELLING "COME HERE" APPEARS COMFORTABLE. THIS RN AND ANOTHER RN CHANGED HER ATTENDS PRIOR TO HER MOVING ROOMS. NO ACUTE ISSUES NOTED.
--- NOTE | 2019-05-29 20:28 | NUR ---
COMFORT CARE PATIENT. NO S/SX OF PAIN OR DISTRESS. RESTING IN BED. BEDFAST. CALL LIGHT IN REACH.
--- NOTE | 2019-05-30 03:27 | NUR ---
SHIFT SUMMARY PATIENT ON COMFORT CARE. AXOX ONE AND BEDFAST. NO S/SX OF PAIN OR DISTRESS. NO DYSPNEA OR EXCRETIONS. NO IV ACCESS. PATIENT CONFUSED AND WILL KEEP REPEATING A QUESTION WHEN IT HAS BEEN ANSWERED. HX DEMENTIA. NO FAMILY PRESENT. CALL LIGHT IN REACH. BED IN LOWEST POSITION. WILL CONTINUE TO MONITOR UNTIL DAY SHIFT NURSE ASSUMES CARE.
--- NOTE | 2019-05-30 10:37 | NUR ---
PATIENT CURRENTLY ASLEEP
--- NOTE | 2019-05-30 10:37 | NUR ---
MEPILEX PLACED TO COCCYX FOR COMFORT
--- NOTE | 2019-05-30 14:11 | NUR ---
ATTENDS CHANGED, REPOSITIONED PATIENT.
--- NOTE | 2019-05-30 16:00 | NUR ---
Spent 15 minutes visiting with Mary this afternoon. She is awake and laying in her bed. She requested to be repositioned with a pillow under her right hip. Assisted her with taking sips of orange juice. She is looking for "the white thing in the room." Unable to determine what she is talking about. Asked if the chair or BSC were what she was refering to and she said no. She appears to be comfortable at this time. Emotional support given. PC will continue to follow for symptom management.
--- NOTE | 2019-05-30 17:50 | NUR ---
Spiritual care routine note: Mrs. Carl was alone in room. She was adamant that I "replace that birch thing on the wall." I attempted to redirect her to other topics, but she quickly returned to her insistance I replace "that birch thing." This could perhaps be a chrished item from home as she is uncertain whre she is. Regardless, I was unable to disuade her from this search. Attempted prayer, but she spoke over me with her insistance about the birch thing. Electrical/Instrument Technician services will remain available.
--- NOTE | 2019-05-31 03:26 | NUR ---
SHIFT SUMMARY PATIENT IS ON COMFORT CARE. AXO X ONE AND BEDFAST. NO IV ACCESS. NO S/SX OF PAIN, SOB, AND N/V. NO SECRETIONS OR DISTRESS NOTED. HX DEMENTIA. BED ALARM ACTIVATED AND IN LOWEST POSITION. WILL CONTINUE TO MONITOR UNTIL DAY SHIFT NURSE ASSUMES CARE.
--- NOTE | 2019-05-31 08:00 | NUR ---
PT PLEASANT [place]. RESPONDS TO SOME QUESTIONS BUT OFTEN NONSENSICAL. H/R REG, RATE 72, RESP EASY, UNLABORED. RATE 20. DENIES PAIN. BED IN LOW POSITION, CALL LITE IN REACH, BED [place] FOR SAFETY
--- NOTE | 2019-05-31 10:41 | NUR ---
PT EYES CLOSED, DID NOT AWAKEN. RESP 16
--- NOTE | 2019-05-31 13:37 | NUR ---
PAL CARE COMFORT CARE VISIT: Pt receiving personal care upon my arrival. She remains confused and agreeable to care. She is not reporting or demonstrating nonverbal indicators of pain. No family visiting at this time. Pal Care to remain available. CM speaking with family re: care and placement options. Plan is for hospice care to support in any care setting decided upon. Case conferenced with pt's RN and CM.
--- NOTE | 2019-05-31 14:09 | NUR ---
RESP 16, PT EYES CLOSED. DID NOT DISRTURB
--- NOTE | 2019-05-31 18:21 | NUR ---
PT PLEASANT WHEN AWAKENED. NO C/O PAIN, OFTEN CONFUSED. FOLLOWS SOME INST. ASSTS IN TURNING. RESP AT 1820 18. EASY, UNLABORED
--- NOTE | 2019-06-01 08:00 | NUR ---
PT AWAKE, DENIES PAIN. ABLE TO SPEAK, OFTEN NONSENSICAL, SOMETIMES NOT. DENIES PAIN. PRESENTLY C&D. NO OTHER CONCERNS AT THIS TIME. PENDING SNF PLACEMENT. H/R 74, RESP 18. NOT WARM TO TOUCH. EXCEPTIONALLY [place]. BED IN LOW POSITION,C ALL LITE IN [facility], BED ALARM ON FOR SAFETY
--- NOTE | 2019-06-01 08:04 | NUR ---
PATIENTS ATTENDS WERE CHANGED AND PATIENT WAS REPOSITIONED SHE WAS WET AMD WAS LAYING LOW IN THE BED.
--- NOTE | 2019-06-01 08:36 | NUR ---
PATIENT ATE 50% AND DRANK 120 ML AND WAS FED.
--- NOTE | 2019-06-01 11:03 | NUR ---
Comfort Care Visit Pt resting in bed and appears mildly anxious as evidenced by calling out for her daughter. No other S/S of distress at this time. Assisted Pt with changing television channel as she reports not liking sports which is she is currently viewing. No other concerns noted at this time. Spoke with Bedside RN Laci, discussed case, and reviewed medications. Palliative Care will remain available.
--- NOTE | 2019-06-01 17:13 | NUR ---
PATIENTS ATTENDS WERE CHANGED SHE WAS WET AND PATIENT WAS REPOSTIONED IN BED.
--- NOTE | 2019-06-01 18:22 | NUR ---
PT PLEASANTLY CONFUSED TODAY. NO OTHER CONCERNS AT THIS TIME. GRAND DDAUGHTER IN TO VISIT TODAY. STATES UNCLE MAY ALSO COME TO VISIT. BED IN LOW POSITION, CALL LITE IN REACH, BED ALARM ON FOR SAFETY
--- NOTE | 2019-06-02 07:53 | NUR ---
PATIENTS ATTENDS WERE CHANGED AND PATIENT WAS REPOSITIONED.
--- NOTE | 2019-06-02 08:43 | NUR ---
PATIENT ATE 25% AND DRANK 120ML OF BREAKFAST AND WAS FED.
--- NOTE | 2019-06-02 09:20 | NUR ---
AM ASSESSMENT- PT COMFORT CARE, DNR WRISTBAND TO LEFT WRIST. PT AWAKE AND SMILING THIS AM. PT A/O TO SELF ONLY. PT DENIES ANY COMPLAINTS. LS CLEAR, ON RA. DRESSING TO LLE C/D/I. PT INCONT OF URINE. PT CAN ASSIST WITH REPOSITIONING IN BED. NO COMPLAINTS AT THIS TIME.
--- NOTE | 2019-06-02 13:29 | NUR ---
Comfort Care Visit Pt resting in bed and is pleasantly confused. Pt appears mildly anxious as evidenced of constant movement of her upper extremities and saying she needs something. Pt is unable to elaborate. Offered soft voice and gentle touch to Pt's shoulder. Pt appears more relaxed by end of visit. Palliative Care will remain available.
--- NOTE | 2019-06-02 14:41 | NUR ---
PATIENTS ATTENDS WERE CHANGED AND PATIENT WAS REPOSTIONED WELL PATIENT RECIEVED A BEDBATH AND LINEN CHANGED THIS SHIFT.
--- NOTE | 2019-06-02 16:17 | NUR ---
SHIFT SUMMARY- PT COMFORT CARE PT. PT AWAKE T/O THE DAY, NO APPARENT DISCOMFORT NOTED. PT PLEASANTLY CONFUSED, NONSENSICAL SPEECH. LS CLEAR, ON RA. HRR. PT WITH VERY POOR APETITE, PT IS A FEEDER BUT ONLY TAKES IN A FEW BITES AT EACH MEAL. PT DOES DRINK FLUIDS WHEN OFFERED, ENSURE ADDED TO MEALS. DRESSING TO LLE CHANGED. BEDBATH COMPLETED. PT AWAITING HOSPICE PLACEMENT.
--- NOTE | 2019-06-02 18:15 | NUR ---
PATIENT ATE ABOUT 10% OF DINNER THIS SHIFT AND DRNAK 120ML AND WAS A FEEDER.
--- NOTE | 2019-06-02 18:16 | NUR ---
PATIETS ATTENDS WERE CHANGED AND PATIENT WAS REPOSTIONED.
--- NOTE | 2019-06-03 06:42 | NUR ---
CORPORATE EVENT PLANNER SUMMARY slept very lightly overnight. Persifercating on color pink tonight. unable to determine what pink item she was wanting. previous night, it was orange. No complaints or visible indications of discomfort. Very pleasantly confused except when she is focusing on her "colors". then she appears to get a little anxious. left ankle dressing intact. not viewed overnight. Small/Med blank like bowel movement overnight. No visitors. Estela likes her juices as well as thickened coffee, and needs to be offered and for straw to be held for her and she will drink several sips in a row.
--- NOTE | 2019-06-03 09:21 | NUR ---
NO C/O PAIN. NO DYSPNEA/SOB/SECRETIONS. NO FAMILY PRESENT. WCTM.
--- NOTE | 2019-06-03 09:23 | NUR ---
NO C/O PAIN. NO DYSPNEA/SOB/SECRETIONS. NO FAMILY PRESENT. WCTM.
--- NOTE | 2019-06-03 11:46 | NUR ---
NO C/O PAIN. NO DYSPNEA/SOB/SECRETIONS. FAMILY IN ROOM. WCTM.
--- NOTE | 2019-06-03 16:21 | NUR ---
NO C/O PAIN. NO DYSPNEA/SOB/SECRETIONS. NO FAMILY PRESENT. WCTM.
--- NOTE | 2019-06-03 16:22 | NUR ---
NO C/O PAIN. NO DYSPNEA/SOB/SECRETIONS. NO FAMILY MEMBERS PRESENT. WCTM.
--- NOTE | 2019-06-03 16:23 | NUR ---
NO C/O PAIN / PT IN NO APPARENT DISTRESS. NO SOB/DYSPNEA/SECRETIONS. NO FAMILY PRESENT. WCTM.
--- NOTE | 2019-06-03 17:49 | NUR ---
NO C/O PAIN. NO DYSPNEA/SOB/SECRETIONS. NO FAMILY PRESENT. WCTM.
--- NOTE | 2019-06-03 18:14 | NUR ---
Routine spiritual care note: Mrs. Carl was talkative and confused. She appears restless and was repetative/forgetful. We had a disjointed conversation. She smiles easily and agreed to prayer. However, she was unable to focus. She denies fear/pain. I will remain available to pt and family.
--- NOTE | 2019-06-03 18:29 | NUR ---
SHIFT SUMMARY: NO ACUTE CHANGES TO REPORT THIS SHIFT. PT ALERT; PLEASANTLY CONFUSED. NO C/O PAIN / PT IN NO APPARENT DISTRESS. SEVERAL VISITORS IN TO VISIT THIS SHIFT. PT TAKING VERY LITTLE ORAL INTAKE. COMFORT CARE MEASURES CONTINUING. WCTM.
--- NOTE | 2019-06-03 19:49 | NUR ---
COMFORT: PASTIENT IS RESTING IN BED NO REPORTS OF PAIN OR DISCOMFORT. PO FLUIDS ARE GIVEN.
--- NOTE | 2019-06-03 22:09 | NUR ---
COMFORT: PATIENT IS YELLING OUT, "I WANT 3,3,3 UP THERE, PUT IT UP THERE". PRN SEROQUEL IS GIVE AGGITATION AND ANXIETY.
--- NOTE | 2019-06-04 00:15 | NUR ---
COMFORT: PATIENT HAD GOOD EFFECT FROM SEROQUEL AND IS SLEEPING COMFORTABLY.
--- NOTE | 2019-06-04 02:26 | NUR ---
COMFORT: PATIENT IS AWAKE AND ASKING FOR COFFEE, NECTAR THICK COFFEE IS GIVEN. NO COMPLIANTS OF PAIN OR DISCOMFORT.
--- NOTE | 2019-06-04 04:33 | NUR ---
COMFORT: PATIENT IS COMFORTABLE, NO PAIN OR DISCOMFORT REPORTED. PO FLUIDS ARE GIVEN. PATIENT IS CONFUSED AT BASELINE.
--- NOTE | 2019-06-04 07:42 | NUR ---
COMFORT: PATIENT IS RESTING COMFORTABLY, TAKING SIPS OF NECTAR THINKEND COFFEE AND JUICE AND A FEW BITES OF ICE CREAM. INC. OF BOWEL AND BLADDER. PATIENT WILL PUT HAND IN BRIEF AFTER BM.
--- NOTE | 2019-06-04 10:33 | NUR ---
DRESSING CHANGE TO LEFT ANKLE OMPLETED BY MARTINA PERDUE RN. MARTINA DOES NOT HAVE COMPUTER ACESS AT THIS TIME TO DOCUMENT DRESSING CHANGE. PER MARTINA WOUND CLEANSED WITH WOUND CLENSER, XEROFOAM GAUZE APPLIED AND WRAPPED WITH KERLIX. SCANT SEROUS DRAINAGE AT SITE
--- NOTE | 2019-06-04 10:45 | NUR ---
BATH COMPLETED. REDNESS WHERE KNEES TOUCH. PT REPOSITIONED AND PILLOW BETWEEN KNEES
--- NOTE | 2019-06-04 12:00 | NUR ---
DECLINES LUNCH, MOUTH SWABBED
--- NOTE | 2019-06-04 13:24 | NUR ---
pt sleeping, opens eyes when talked to. pt declines lunch or repositioning at this time
--- NOTE | 2019-06-04 17:43 | NUR ---
SUMMARY PATIENT CALM AND HAS SLEPT WHEN UNDISTURBED. PT HAS DENIED PAIN OR DISCOMFORT. PT HAS HAD A FEW SIPS OF FLUIDS AND BITES OF FOOD BUT HAS DECLINED MEALS
--- NOTE | 2019-06-04 20:35 | NUR ---
COMFORT: PATIENT IS SLEEPING AT THIS TIME, NO S/S OF PAIN OR DISCOMFORT.
--- NOTE | 2019-06-05 01:03 | NUR ---
COMFORT: PATIENT HAS NO S/S OF PAIN OR DISCOMFORT, PO FLUIDS ARE GIVEN AND SNACK, A FEW BITES OF CHOCOLATE LEFT BY FAMILY.
--- NOTE | 2019-06-05 01:05 | NUR ---
COMFORT: PATIENT IS RESTING COMFORTABLY TONIGHT AND IS SLEEPING WELL. WAKES EASIY FOR PERSONAL CARE, PO FLUIDS AND REPOTITIONING.
--- NOTE | 2019-06-05 03:20 | NUR ---
COMFORT: PATIENT IS INC. OF A SMALL AMOUNT OF URINE. RAE CARE, ATTENDS CHANGE, PO FLUIDS AND T&P ARE GIVEN.
--- NOTE | 2019-06-05 07:40 | NUR ---
COMFORT: PATIENT HAS NO COMPLIANTS OF PAIN OR DISCOMFORT AND HAS BEEN SLEEPING MOST OF THE NIGHT. WAKES TO TAKE SIPS AND BITES OF FLUIDS AND SOFT FOODS. THERE IS A OPEN AREA ON COCCYX, 1 CM IN DIAMETER, MEPLEX WAS APPLIED.
--- NOTE | 2019-06-05 18:15 | NUR ---
SHIFT SUMMARY PT HAS HAD NO COMPLAINTS OF PAIN THIS SHIFT. PT SLEEPING OFF AND ON BUT DOES REQUEST COFFEE OFTEN. PT REPORTED BEING HUNGRY THIS EVENING AND BODY PAINTER IN WITH PT, FEEDING HER. NO ACUTE CHANGES THIS SHIFT. WILL CONTINUE TO MONITOR FOR COMFORT.
--- NOTE | 2019-06-05 20:59 | NUR ---
COMFORT: PATIENT IS WIDE AWAKE TONIGHT, NO REPORTS OF PAIN OR DISCOMFORT. THICKENED COFFEE IS GIVEN PER PASTIENT REQUEST.
--- NOTE | 2019-06-05 23:06 | NUR ---
COMFORT: PATIENT IS YELLING OUT AND WANTS STAFF TO "PUT 3 WHITE LIGHTS ON THE TV". REPEAT ING OVER AND OVER. PRN SEROQUEL IS GIVEN
--- NOTE | 2019-06-06 04:34 | NUR ---
COMFORT: PATIENT HAD GOOD EFFECT FROM SEROQUEL AND IS RESTING COMFORTABLY.
--- NOTE | 2019-06-06 04:35 | NUR ---
COMFORT: PATIENT IS RESTING IN BED, THINKENED JUICE IS GIVEN. NO S/S OF PAIN OR DISCOMFORT. PATIENT HAS AN OPN AREA ON COCCYX BUT WILL NOT KEEP MEPELEX IN PLACE, PEELS THEM OFF. BARRIER PASTE IS USED AND COCCYX IS FLOATED WITH PILLOWS.
--- NOTE | 2019-06-06 06:32 | NUR ---
COMFORT: PATIENT IS RESTING COMFORTABLY, NO S/S OP PAIN OR DISCOMFORT. BED ALARM IS ON FOR SAFETY.
--- NOTE | 2019-06-06 17:20 | NUR ---
SHIFT SUMMARY PT HAS BEEN SLEEPING ALL SHIFT. PT HAS NOT EATEN TODAY AND HAS HAD NO COMPLAINTS OF PAIN. NO ACUTE CHANGES THIS SHIFT. WAITING FOR PLACEMENT. WILL CONTINUE TO MONITOR FOR COMFORT.
--- NOTE | 2019-06-07 04:32 | NUR ---
SHIFT SUMMARY NO ACUTE CHANGES TO REPORT THIS SHIFT. PT HAS RESTED OFF AND ON, A/O TO SELF SPEECH AT TIMES NONSENSICAL. PT MOVES AROUND IN BED PRETTY INDEPENDENTLY ON HER ON AND DOES NOT REQUIRE MUCH REPOSITIONING. NO COMPLAINTS OF PAIN. PT REQUEST BEVERAGES FREQUENTLY. HER FAVORITE IS ORANGE JUICE AND COFFEE. COMFORT ASSESESS T/O SHIFT. BED IN LOWEST POSITION, CALL LIGHT WITHIN REACH. WILL CONTINUE TO MONITOR AND REPORT TO ONCOMING RN.
--- NOTE | 2019-06-07 18:13 | NUR ---
SHIFT SUMMARY PT NOT ORIENTED, VERY CONFUSED AND ANXIOUS AT TIMES. MEDICATED PER EMAR FOR PAIN AND AGGITATION X1 THIS SHIFT. PT RESTING COMFORTABLY SINCE. PT TURNED AND CHANGED PRN AND Q2. A FAMILY MEMBER CALLED AND STATED THAT HER KIDS ARE SICK AND SO SHE WILL NOT COME AND VISIT AND WANTED UPDATE ON PATIENT CONDITION. DRESSING TO LLE CHANGED THIS SHIFT AND DR. VILA ASSESSED WOUND. NO FURTER ORDERS AT THIS TIME. BED IN LOW POSITION, CALL LIGHT WITHIN REACH THOUGH PT IS NOT ABLE TO USE CALL LIGHT EFFECTIVELY.
--- NOTE | 2019-06-08 07:21 | NUR ---
SUMMARY PT COMFORTABLE T/O SHIFT. NO ISSUES NOTED. PT TURNED AND CHANGED ORDERED/ NEEDED. CALL LIGHT IN REQACH BED ALARM ON.
--- NOTE | 2019-06-08 11:42 | NUR ---
PATIENT SLEEPING W/O S/SX DISTRESS. PILLOW PLACED BETWEEN KNEES. CONT TO MONITOR.
--- NOTE | 2019-06-08 11:43 | NUR ---
WILL ATTEMPT TO AWAKEN PT AND ENCOURAGE PO INTAKE. NO VOID THIS SHIFT.
--- NOTE | 2019-06-08 16:22 | NUR ---
PATIENT HAS SLEPT SOUNDLY, NOW AWAKENS EASILY FOR LUNCH. DECLINES FOOD, TAKING NECTAR THICK COFFEE AND JUICE. SPEECH CLEAR, ANSWERS QUESTIONS APPROPRIATELY, WASHES FACE. DENIES PAIN OR ANY DISCOMFORT. WATCHING TV, MAKING CONVERSATION. WILL CONT TO MONITOR AND REPOSITION PATIENT ALLOWS.
--- NOTE | 2019-06-08 16:29 | NUR ---
PATIENT DOZING W/O S/SX DISCOMFORT.
--- NOTE | 2019-06-08 18:50 | NUR ---
PATIENT SLEEPING AT THIS TIME, AWAKENS EASILY TO VERBAL STIMULI. INTRODUCED NOC RN. PATIENT PLEASANT, TALKATIVE, NO NEEDS.
--- NOTE | 2019-06-08 19:48 | NUR ---
Comfort Measures: Pt is alert, watching TV program. She is [place], responds appropriately to questions. She reports that she has minimal pain: "in my back, but it is a tiny amount," she states. She would like a cup of coffee. This is reviewed with the night nurse, who will provide this later. White board indicates that this pt needs supervision and assistance with meals. Medications reviewed. No other concerns at this time. Pt states that she is very happy, and would just like some coffee. Will remain available.
--- NOTE | 2019-06-08 20:00 | NUR ---
PATIENT TALKING. TAKING SNACKS AND PO FLUIDS. WATCHING TV.
--- NOTE | 2019-06-08 20:02 | NUR ---
PATIENT REMAINS AWAKE, USED CALL LIGHT FOR BEVERAGE. NO C/O.
--- NOTE | 2019-06-09 07:15 | NUR ---
recvd report from previous shift RN Sanjuana, pt sleeping in bed, bed rails up x 2, call light within reach, bed alarm in place.
--- NOTE | 2019-06-09 07:23 | NUR ---
06/09/19 0600 PT CHEERFUL THIS AM. STATES SHE SLEPT FAIR. REPOSITIONED TO EITHER SIDE BUT SOON AFTERWARDS SHE TURNS TO BACK. STRESSED IMPORTANCE OF STAYING OFF BUTT TO PREVENT FURTHER SKIN BREAKDOWN. COCCYX PINK.
--- NOTE | 2019-06-09 08:15 | NUR ---
provided rock care, applied barior cream to coxxyc, applied mepilex padded dressing, floated hip and ble, given warm blanket and morning care
--- NOTE | 2019-06-09 10:15 | NUR ---
DR BARNETT ROUNDING ON PT
--- NOTE | 2019-06-09 14:15 | NUR ---
palliative care to see pt
--- NOTE | 2019-06-09 14:42 | NUR ---
pt happy and comfortable just tired of being alone. theraputic time opened curtians to look at blue micah. had some peaches. her favorite color is brown provide brwon tones comfort quilt.
--- NOTE | 2019-06-09 18:07 | NUR ---
shift summary: pt remained on comfort care t/o shift, remained a/o x 4, pleasant/cooperative, denies pain. pt appears to be sleeping periodically t/o the day on nurse rounding, wakens easily. pt received a quilt when palliative care rounded. place barrier cream and mepilex dressing on sacrum/coccyx. repositioned pt q2 t/o shift, comfort care measure provided
--- NOTE | 2019-06-09 23:11 | NUR ---
06/09/19 2310 C/O DISCOMFORT AT COCCYX AND BACK. SEE MAR FOR MEDS GIVEN. REPOSITIONED TO LEFT SIDE WITH PILLOWS. BRIEF CHANGED AND RAE-CARE GIVEN.
--- NOTE | 2019-06-10 07:35 | NUR ---
06/10/19 0600 UNEVENTFUL NIGHT. PT FREQUENTLY ASKS FOR COFFEE AND A CIGARETTE. ONLY COFFEE GIVEN. REPOSITIONED SIDE TO SIDE WITH PILLOWS. INCONTINENT OF URINE AND BRIEF CHANGED.
--- NOTE | 2019-06-10 17:48 | NUR ---
PT SLEEP MOST OF THE MORNING. PT DOES NOT USE CALL LIGHT. PT HAS BEEN COMFORTABLE AND DENIES ANY PAIN. PT TURNED Q2 HOURS AND HAS ATTENDS IN PLACE. WILL CONTINUE TO MONITOR.
--- NOTE | 2019-06-11 03:45 | NUR ---
SHIFT SUMMARY ADMITTED FOR SEVERE SEPSIS. DNR CODE. CONTACT PRECAUTIONS FOR ESBL IN THE URINE - INFECTION PREVENTION WILL LOOK INTO THE NEED TO CONTINUE THESE PRECAUTIONS TOMORROW. PT DOES HAVE CELLULITIS OF THE BLE. PT IS NOW COMFORT CARE AND IS EXPECTED TO DC ON HOSPICE AFTER PLACEMENT HAS BEEN FOUND. SHE IS ON ASPIRATION PRECAUTIONS, NECTAR THICK LIQUIDS, NO STRAWS. HOWEVER SHE MAY HAVE OTHER FOODS/DRINKS IF SHE WISHES A COMFORT CARE PT. MEDS ARE CRUSHED IN APPLESAUCE. SHE IS INCONTINENT OF URINE AND BM. SHE IS CONFUSED, A&O X1-2. RA, Q 2 TURNS, NO IV ACCESS. HX: MULTIPLE SPINAL COMPRESSION FX'S, PELVIC FX"S, COPD, MALNUTRITION, CKD, DEMENTIA.
--- NOTE | 2019-06-11 17:27 | NUR ---
SHIFT SUMMARY PT ALERT AND CONFUSED THROUGHOUT THIS SHIFT. PT FOLLOWS DIRECTIONS AND IS COOPERATIVE WITH CARE. PT CALLS OUT FOR HELP CONTINUOUSLY AND FORGETS SHE IS CALLING OUT WHEN TALKED TO. PT FORGETFUL THAT SHE IS IN THE HOSPITAL. PT PLEASANT AND EASILY REDIRECTED. PT INCONTENENT OF URINE AND BOWEL AND PUTS HANDS IN STOOL IF NOT NOTICED IMMEDIATELY. PT CURRENTLY SITTING UP IN BED WATCHING TELEVISION.
--- NOTE | 2019-06-11 20:27 | NUR ---
therputic time with patient. no signs of discomfort
--- NOTE | 2019-06-11 20:59 | NUR ---
elderly dementia PT co sacral pain and anxiety. medicated with ultram 50 mg and seroquel. Foam dressing applied to sacral wound whick PT removed within 5 minutes. fed kaden pudding & kaden ensure thickened. Resting quietly.
--- NOTE | 2019-06-12 01:33 | NUR ---
Pt sleeping after ultram and seroquel at HS.She is aspiration risk needs thickened liquids and assist with feeding. Resting comfortably with bed alarm on. Confusion and while awake PT asks frequently for cigarettes. Using nicotine patch. No visitors tonight. PT did remove foam dress from sacral area.
--- NOTE | 2019-06-12 12:30 | NUR ---
[facility] CARE COMFORT CARE VISIT Pt sound asleep. No nonverbal indicators of pain, dyspnea, anxiety or distress noted. Per EMR pt had been awake much of night. I did not wake her. Case conferenced with bedside RN. Pt remains happy, confused when awake. No concerns reported r/t s/s management. She is medically stable and awaiting placement.
--- NOTE | 2019-06-12 17:49 | NUR ---
SHIFT SUMMARY PT ALERT AND ORIENTED TO SELF THIS SHIFT. PT SLEPT MUCH OF THIS SHIFT. PT COOPERATIVE WITH CARE. PT CONFUSED, UNAWARE THAT SHE IS IN THE HOSPITAL. PT CALLS OUT FOR FAMILY MEMBERS AND FORGETS SHE WAS CALLING OUT WHEN ASKED WHAT IS NEEDED.
--- NOTE | 2019-06-12 19:35 | NUR ---
Talkative. Incoherent speech. Call light in reach.
--- NOTE | 2019-06-12 22:38 | NUR ---
REPOSITIONED, PT HAD TAKEN OFF BRIEF, IT WAS WET, PT CLEANED AND NEW BRIEF PUT ON. RAILS UP X 3. CALL LIGHTIN REACH.
--- NOTE | 2019-06-13 00:12 | NUR ---
watching tv, calling out for a "cigarette". No noted acute distress. Call light in reach.
--- NOTE | 2019-06-13 01:22 | NUR ---
INCNT OF FECES, WAS SMEARING IT ON CLOTHING. PT CLEANED UP, LINEN CHANGED. PO FLUIDS GIVEN EARLIER (NECTOR THICK). CALL LIGHTIN REACH.
--- NOTE | 2019-06-13 02:55 | NUR ---
AWAKE, CALLING OUT FOR SOMETHING TO DRINK. NECTAR THICKENED ORANGE JUICE GIVEN. PT VOICED SHE LIKED IT, THEN ASKED FOR A "CIGARETTE". no NOTED ACUTE DISTRESS. CALL UMAIR KRUGER
--- NOTE | 2019-06-13 05:27 | NUR ---
AWAKE AT INTERVALS. INCONT OF URINE AND FECES - SOME ATTEMPTS AT FINGER PAINTING. CLEANED UP EACH TIME SHE WAS INCONT. LINEN CHANGED NEEDED. CALL LIGHT IN REACH. TOLERATING NECTAR THICK LIQUIDS - ORANGE JUICE AND LEMON FLAVORED WATER.
--- NOTE | 2019-06-13 08:00 | NUR ---
PT. LAYING IN BED WANTING TO KNOW WHEN BREAKFAST WILL BE HER.
--- NOTE | 2019-06-13 10:00 | NUR ---
PT. SLEEPING AT THIS TIME.
--- NOTE | 2019-06-13 12:00 | NUR ---
PT, SLEEPING SOUNDLY, BREATHING SHALLOW.
--- NOTE | 2019-06-13 13:12 | NUR ---
Comfort Care Visit Pt resting in bed with her eyes closed. Pt appears comfortable with no S/S of distress at this time. Palliative Care will remain available.
--- NOTE | 2019-06-13 14:05 | NUR ---
PT. STILL SLEEPING BREATHING SHALLOW.
--- NOTE | 2019-06-13 16:07 | NUR ---
PT. RESTING QUIETLY, HAS BEEN ASLEEP MOST OF THE DAY.
--- NOTE | 2019-06-13 18:45 | NUR ---
PT. SLEEPING BREATHING EVEN AND SHALLOW. NO NOTEABLE CHANGES THIS SHIFT.
--- NOTE | 2019-06-13 23:17 | NUR ---
PT WAS OFFERED REPOSITIONING AND REFUSED
--- NOTE | 2019-06-14 01:48 | NUR ---
PT REQUESTED SOMETHING TO DRINK. THICKENED LIQUIDS WERE PROVIDED AND SHE HAD A FEW SIPS. SHE THANKED ME AND DENIED FURTHER NEEDS.
--- NOTE | 2019-06-14 05:45 | NUR ---
SHIFT SUMMARY PT HAS SLEPT FOR MUCH OF THE NIGHT. AWOKE AND REQUESTED SOMETHING TO DRINK. THICKENED LIQUIDS WERE PROVIDED. SHE DID COMPLAIN OF PAIN ONCE THIS NIGHT. TREATED TO GOOD EFFECT PER EMAR. NO FURTHER COMPLAINTS OF PAIN OR DISCOMFORT. PRESENLTY APPEARS TO BE SLEEPING AND IN NO ACUTE DISTRESS. APPEARS COMFORTABLE. WILL CONTINUE TO MONITOR.
--- NOTE | 2019-06-14 07:18 | NUR ---
PT IN BED COMFORTABLY SLEEPING, NO CUTE CHANGES OR OBERSVATIONS OF PAIN OR SOB. LN TO CONTINUE TO MONITOR.
--- NOTE | 2019-06-14 10:21 | NUR ---
PT UPRIGHT IN BED, DRINKING COFFEE, REPORTS SATISFACTORY FEELINGS OF COMFORT. LN TO CONTINUE TO MONITOR.
--- NOTE | 2019-06-14 12:38 | NUR ---
PT PLEASANTLY SLEEPING AT THIS TIME IN BED. LEFT SIDE LYING POSITION. NO SOB OR GRIMACING OBSERVED.
--- NOTE | 2019-06-14 13:06 | NUR ---
Comfort Care Visit Pt resting in bed talking with herself upon arrival. Offered therapeutic listening and gentle voice. Pt denies pain and appears comfortable. No S/S of distress at this time. Palliative Care will remain available
--- NOTE | 2019-06-14 18:16 | NUR ---
SHIFT SUMMARY PT ALERT TO SELF AND FAMILY. MAKES SOME NEEDS KNOWN. PT COMFORT CARE AND SLEPT LARGE PORTION OF SHIFT. PT INCONTINENT AND EPISODE OF PERICARE COMPLETED NEEDED. PT HAD SOME INTAKE OF FOOD DURING SHIFT. LN TO CONTINUE TO MONITOR. NO COMPLAINTS OF PAIN OR INDICATION OF PAIN.
--- NOTE | 2019-06-14 19:09 | NUR ---
COMFORT: PATIENT IS RESTING IN BED WATCHING TV. NO S/S OF PAIN OR DISCOMFORT. APPLE JUICE, NECTAR THICK IS GIVEN, WITH REPOSITIONING.
--- NOTE | 2019-06-14 21:45 | NUR ---
COMFORT: PATIENT HAS NO S/S OF PAIN OR DISCOMFORT. INC. OF STOOL AND URINE, PERICARE, FLUIDS AND T&P GIVEN. BED ALARM IS ON FOR SAFETY AND CALL KRISHNAN IS WITH IN REACH.
--- NOTE | 2019-06-15 02:32 | NUR ---
COMFORT: PATIENT IS RESTING COMFORTABLY, WATCHING TV. NO S/S OF PAIN OR DISCOMFORT.
--- NOTE | 2019-06-15 02:34 | NUR ---
COMFORT: PATIENT IS INC. OF STOOL X2, RAE CARE GIVEN. SNACK IS GIVEN AT THIS TIME PATIENT PO PO INTAKE WELL. NO S/S OF PAIN OR DISCOMFORT.
--- NOTE | 2019-06-15 07:24 | NUR ---
COMFORT: PATIENT IS SLEEPING AND IS NOT DISTURBED AT THIS TIME. NO S/S OF PAIN OR DISCOMFORT.
--- NOTE | 2019-06-15 07:26 | NUR ---
COMFORT: PATIENT HAS NO COMPLAINTS OF PAIN OR DISCOMFORT. COFFEE IS GIVEN PER PATIENT REQUEST. INC. OF BOWEL AND BLADDER, INC. CARE WAS GIVEN.
--- NOTE | 2019-06-15 09:00 | NUR ---
PT PLEASANT COOP A/O TO SELF, UNSURE OF DATE, PLACE, SITUATION, STATES WANTED TO GO HOME TO [place]. CALLS OCCATIONALLY FOR [place]. NO OTHER CONCERNS AT THIS TIME. RESP EASY, UNLABORED. ON R/A.
--- NOTE | 2019-06-15 17:53 | NUR ---
PT PLEASANT TODAY. CONTINUES TO PICK AT WHATEVER CAN REACH, NO OTHER CONCERNS AT THIS TIME. BED IN LOW POSITION, CALL LITE IN REACH, BED ALARM ON FOR SAFETY
--- NOTE | 2019-06-15 22:04 | NUR ---
COMFORT: PATIENT IS RESTING IN BED WATCHING TV. NO S/S OF PAIN OR DISCOMFORT. PO FLUIDS ARE GIVEN.
--- NOTE | 2019-06-15 22:06 | NUR ---
COMFORT: PATIENT IS REQUESTING A CIGARRET. PATIENT IS TOLD THIS IS A NON SMOKING FACILITY. THICKENED COFFEE AND HS SNACK ARE GIVEN.
--- NOTE | 2019-06-16 02:42 | NUR ---
COMFORT: PATIENT IS NOT SLEEPING TONIGHT, NO COMPLAINTS OF PAIN BUT IS STILL REQUESTING A CIGARRET. PO FLUIDS ARE GIVEN.
--- NOTE | 2019-06-16 02:54 | NUR ---
COMFORT: PATIENT IS FOUND ON FLOOR AND IN BLEEDING FROM A LASERATIONS ABOVE AND BELOW LEFT EYE, SKIN TEAR ON LEFT UPPER ARM AND LEFT KNEE. STERI STRIPS ARE PLACE ON L EYE AND L ARM LASERATIONS AND MEPLEX IN PLACED ON LEFT KNEE. ICE COMPRESSES ARE ALSO PLACED AND TRAMADOL WAS GIVEN. NO CHANGES IN VISION OR MENTATION OBSERVED. DR TORRES WAS NOTIFIED, NO NEW ORDERS, CONTINUE TO USE FALL PREVENTATION MEASURES.
--- NOTE | 2019-06-16 06:44 | NUR ---
COMFORT: PATIENT REPORTS GOOD EFFECT FROM TRAMADOL. PATIENT REPORTS NO PAIN AT THIS TIME. BED ALARM IS ON FOR SAFETY. SON JASIEL MASSEY WAS NOTIFIED OF FALL.
--- NOTE | 2019-06-16 08:00 | NUR ---
PT IS PLEASANT COOP, VERY NUIQSUT. AWAKENS TO TALK EASILY. ORIENTED TO SELF. CALLS REGULARLY TO SOMEONE TO BRING HER A CIGARETTE. STERISTRIPS ON L EYE FACE AREA, L UPPER ARM, AND MEPILEX ON L KNEE AREA WHERE SHE CAUSED TERARS WHEN FELL LAST SHIFT. NO OTHER CONCERNS AT THIS TIME. BED IN LOW POSITION, CALL LITE IN REACH, BED ALARM ON FOR SAFETY
--- NOTE | 2019-06-16 17:34 | NUR ---
PT PLEASANTTODAY. STAYED IN BED, RETAPED SOME SKIN TEARS. NO C/O PAIN. PUT NEW MEPILEX ON COCCYX LITE ABRASION AND BONE. NO OTHER CONCERNS AT THIS TIME. BED IN LOW POSITION, CALL LITE IN REACH, BED ALARM ON FOR SAFETY
--- NOTE | 2019-06-16 18:55 | NUR ---
COMFORT: PATIENT IS SLEEPING, RESPIRATIONS ARE EASY AT 14. BED ALRAM IS ON AND CALL KRISHNAN IS WITHIN REACH.
--- NOTE | 2019-06-16 19:40 | NUR ---
Comfort Care: Pt alert, oriented. No concerns, pain managed. Chart and notes reviewed.
--- NOTE | 2019-06-16 21:24 | NUR ---
COMFORT: PATIENT IS SLEEPING AND WAKES EASILY. INC. OF URINE. PATIENT DOES NOT WANT ANY FOOD OR WATER AT THIS TIME. ATTENDS CHANGE, RAE, T&P AND MOUTH CARE GIVEN. BED ALARM IS ON FOR SAFETY.
--- NOTE | 2019-06-17 00:08 | NUR ---
COMFORT: PATIENT IS AWAKE, WAYCHING TV. THICKENED COFFEE AND MANDERIN ORANGES ARE GIVEN. NO COMPLAINTS OR S/S OF PAIN OR DISCOMFORT.
--- NOTE | 2019-06-17 02:05 | NUR ---
COMFORT: PATIENT IS ALERT AND ASKING FOR COFFEE. SCORING A 2 ON FLACC SCALE FOR PAIN IN LEFT ORBITAL AREA, PRN TRAMADOL IS GIVEN. PATIENT TAKES A FEW SIPS OF COFFEE AND SOME FRUIT.
--- NOTE | 2019-06-17 04:21 | NUR ---
COMFORT: PATIENT IS SLEEPING, NO S/S OF PAIN OR DISCOMFORT.
--- NOTE | 2019-06-17 06:16 | NUR ---
COMFORT: PATIENT IS AWAKE, WATCHING TV. NO COMPLIANTS OF PAIN OR DISCOMFORT. APPLE JUICE IS GIVEN. CALL KRISHNAN IS WITHIN REACH AND BED ALARM IS ON FOR SAFETY.
--- NOTE | 2019-06-17 10:23 | NUR ---
NO C/O PAIN. NO DYSPNEA/SOB/SECRETIONS. NO FAMILY PRESENT. WCTM.
--- NOTE | 2019-06-17 10:25 | NUR ---
NO C/O PAIN; PT IN NO APPARENT DISTRESS. NO DYSPNEA/SOB/SECRETIONS. NO FAMILY PRESENT. WCTM.
--- NOTE | 2019-06-17 12:20 | NUR ---
NO C/O PAIN. NO DYSPNEA/SOB/SECRETIONS. NO FAMILY PRESENT. WCTM.
--- NOTE | 2019-06-17 14:49 | NUR ---
PT DRINKING THICK LIQUIDS INDEPENDENTLY, DENIES PAIN, NAUSEA. PT WATCHING TV, INFORMED TO PLACE RED CALL LIGHT ON IF SHE NEEDS ANYTHING, BED IN LOW LOCKED POSITION, CALL LIGHT IN REACH.
--- NOTE | 2019-06-17 14:56 | NUR ---
PT DRINKING THICKENED LIQUIDS, DENIES PAIN, NAUSEA. SMILING AND CHEERFUL. PT INSTRUCTED TO PRESS RED NURSE LIGHT INSPECTOR BICYCLE BUTTON IF SHE NEEDS ANYTHING. BED IN LOW, LOCKED POSITION, CALL LIGHT IN REACH.
--- NOTE | 2019-06-17 16:17 | NUR ---
NO C/O PAIN; PT IN NO APPARENT DISTRESS. NO DYSPNEA/SOB/SECRETIONS. NO FAMILY PRESENT. WCTM.
--- NOTE | 2019-06-17 19:35 | NUR ---
SHIFT SUMMARY: NO ACUTE CHANGES TO REPORT THSI SHIFT. PT ALERT; ORIENTED TO SELF; NO C/O PAIN. MEDICATED FOR AGITATION PER EMAR. COMFORT CARE MEASURES CONTINUING. REPORT GIVEN TO ONCOMING RN.
--- NOTE | 2019-06-17 20:13 | NUR ---
pt resting and singing to herself. theraputic time spent.
--- NOTE | 2019-06-17 23:11 | NUR ---
06/17/191999 PT VERY ANXIOUS AND PULLUNG OFF DRESSINGS ON LEFT LOWER LEG AND RT UPPER ARM. INSTRUCTED NOT TO REMOVE STERI-STRIPS AND DRESSINGS OVER WOUNDS BUT CONTINUES TO TALK AND IGNOR RN. DIVERSIONAL ACTIVITIES IN PROGRESS IN HOPES SHE WILL LEAVE DRESSINGS ON.
--- NOTE | 2019-06-17 23:15 | NUR ---
06/17/192029 PT SLEEPING AT THIS TIME.
--- NOTE | 2019-06-17 23:19 | NUR ---
06/17/19 2200 PT AWAKE AND REMOVED DRESSINGS TO LEFT LEG AND MEPILEX TO COCCYX. ALSO SHE IS PULLING AT STERI-STRIPS TO UPPER RIGHT ARM. RN WILL INFORM ON-CALL MD FOR ORDERS. WOUND CLEANSED TO LEFT LOWER LEG AND REDRESSED WITH NON-ADHERING DRESSING AND WRAP. NEW STERI-STRIPS TO SKIN TEARS ON UPPER RT ARM.
--- NOTE | 2019-06-18 06:05 | NUR ---
06/18/19 0555 PT ASLEEP NOW WITHOUT DISTRESS. DRESSINGS INTACT. BED ALARM ON.
--- NOTE | 2019-06-18 10:04 | NUR ---
NO C/O PAIN; PT IN NO APPARENT DISTRESS. NO DYSPNEA/SOB/SECRETIONS. NO FAMILY PRESENT. NICOTINE TOP APPLIED. WCTM.
--- NOTE | 2019-06-18 10:05 | NUR ---
NO C/O PAIN. NO DYSPNEA/SOB/SECRETIONS. PT SLEEPING. NO FAMILY PRESENT. WCTM.
--- NOTE | 2019-06-18 13:07 | NUR ---
PT UP TO BEDSIDE COMMODE WITH ASSIST. PT WEAK BUT ABLE TO TRANSFER TO COMMODE. PT IN CHEERFUL MOOD, DENIES PAIN. NO DYSPNEA, SOB, RESP EU. BACK TO BED WITH ASSISTANCE. CONT TO MONITOR.
--- NOTE | 2019-06-18 16:10 | NUR ---
NO C/O PAIN. NO DYSPNEA/SOB/SECRETIONS. NO FAMILY PRESENT. WCTM.
--- NOTE | 2019-06-18 16:11 | NUR ---
NO C/O PAIN; PT IN NO APPARENT DISTRESS. NO DYSPNEA/SOB/SECRETIONS. NO FAMILY PRESENT. WCTM.
--- NOTE | 2019-06-18 17:23 | NUR ---
Routine spiritual care note: Mrs. Carl appears much more frail. She awakens only briefly to voice and complained of being cold. Got her warm blanket and provided prayer. She appears well cared-for by nursing. I will remain available.
--- NOTE | 2019-06-18 17:37 | NUR ---
NO C/O PAIN. NO DYSPNEA/SOB/SECRETIONS. NO FAMILY PRESENT. PATIENT SLEEPING. WCTM.
--- NOTE | 2019-06-18 19:39 | NUR ---
SHIFT SUMMARY: NO ACUTE EVENTS TO REPORT THIS SHIFT. PT ALERT; DEMENTIA; COOPERATIVE WITH CARE. NO C/O PAIN THIS SHIFT. COMFORT CARE MEASURES CONTINUING. REPORT GIVEN TO ONCOMING RN.
--- NOTE | 2019-06-18 20:23 | NUR ---
pt more frail today. suggest stopping nicotine patch. micah evaluate in am if able to transfer
--- NOTE | 2019-06-18 23:04 | NUR ---
06/18/190 SLEEPING WELL ON RT SIDE. NO DISTRESS NOTED. BED ALARM ON.
--- NOTE | 2019-06-19 01:36 | NUR ---
06/19/19 0000 PT SLEEPING WELL. SHE HAS BEEN TURNING HERSELF FROM SIDE TO SIDE IN BED. BED ALARM ON.
--- NOTE | 2019-06-19 06:56 | NUR ---
06/19/19 0600 PT SLEPT MOST OF SHIFT. RAE-CARE GIVEN. UNEVENTFUL NIGHT.
--- NOTE | 2019-06-19 17:30 | NUR ---
PT SLEEP MOST OF THE MORNING. PT IS AOX1 AND SEEMS PLEASANT. PT HAS BEEN STAYING IN HER BED TODAY, BUT WANTS TO PICK AT BANDAGES SHE HAS. PT TOOK OFF TWO MEPIPLEX BANDAGES THEN SEEN SHE HAD TWO BIG SKIN TEARS THEY WERE COVERING AND DECIDED SHE NEEDED THEM TO HAVE BANDAGES. THIS LANG INTERPRETER REPLACED THEM AND TRIED TO DISCOURAGE PT FROM TAKING THEM OFF AGAIN. PT VERY PLEASANT AND ROLLS AROUND IN BED A LOT CHANGING POSITION. NO DISTRESS NOTED AT THIS TIME. WILL CONTINUE TO MONITOR. BED IN LOWEST POSITION WITH RAIL UP AND BED ALARM ON.
--- NOTE | 2019-06-19 22:43 | NUR ---
SEROQUEL ADMINSTERED FOR AGITATION. PT RESTLESS AND CALLING OUT STATING SHE WANTS SOMETHING ON HER LEGS. PT DENIES PAIN IN HER LEGS. UNABLE TO DETERMINE WHAT SHE WANTS ON LEGS, SHE INDICATED SHE WANTED GAUZE WRAPPED ALL OVER HER LEGS. INFORMED PT GAUZE IS ONLY ON WOUNDS. LOTION APPLIED TO DRY SKIN. PT CURRENTLY SEEMING MORE RELAXED. NO LONGER CALLING OUT ABOUT HER LEGS. AWAKE AND TALKING, SAYING "BETHANIE" OCCASIONALLY.
--- NOTE | 2019-06-20 06:39 | NUR ---
SHIFT SUMMARY COMFORT CARE. PT HAD A GOOD NIGHT OVERALL. MEDICATED FOR AGITATION X1 AND FOR PAIN X1. EACH W/GOOD RESULTS. PT IS CURRENTLY SLEEPING. APPEARS COMFORTABLE. TURNING INDEPENDENTLY IN BED AND W/STAFF ASSIST. A/O TO SELF ONLY. PLEASANT AND TALKING W/STAFF. PLEASANTLY CONFUSED. BED LOW, BED ALARM ON. WILL CONT TO MONITOR.
--- NOTE | 2019-06-20 10:23 | NUR ---
Comfort Care Visit Pt resting in bed upon arrival. Bedside RN Damian changing Pt's wound dressing. Pt appears comfortable with no S/S of distress at this time. Pt is pleasantly confused. Palliative Care will remain available.
--- NOTE | 2019-06-20 11:33 | NUR ---
PT APPEARS COMFORTABLE, SLEEPING AT THIS TIME
--- NOTE | 2019-06-20 11:35 | NUR ---
PT WAKES EASILY IS PLEASANT, LEFT ARM WOUND DRESSING CHANGED PT TOLERATED WELL, PALLIATATIVE CARE RN GILES IN TO SEE THE PT
--- NOTE | 2019-06-20 14:19 | NUR ---
PT WAS SLEEPING AWAKEND EASILY, LEFT LE WOUND DRESSINGS CHANGED AND CLEANED, PT TOLERATED WELL
--- NOTE | 2019-06-20 17:05 | NUR ---
PT IS ALERT ORIENTESD TO SELF AND PLACE, PLEASANT AND COPERATIVE, THE PT APPEARS TO BE BREATHING EASILY ON RA AT THIS TIME, PTS WOUND DRESSINGS WERE CHANGED TODAY, THE PT TOLERATED THE PROCEDURES WELL, PT DENIED ANY PAIN, THE PT SLEPT ON AND OFF T/O THE DAY, CALL LIGHT IN REAC, BED ALARM ON
--- NOTE | 2019-06-20 18:08 | NUR ---
Routine spiritual care note: Mrs. Carl was delightful and pleasantly confused. She could not participate in lucid conversation as she had difficulty following threads of subject. Regardless, she chatted happily with me and appeared to enjoy companionship. I provided comfort through touch, listening, and presence of love. She denies pain/fear/or worry. She tells me she is happy being here and was complimetary of her RN today. I will remain available.
--- NOTE | 2019-06-21 05:02 | NUR ---
SHIFT SUMMARY ASSUMED CARE OF PT AT 1900. PT IS CONFUSED AND ONLY ORIENTED TO SELF. PT REPEATIVLY ASKS FOR COFFEE AND SNACKS. RESPIRATIONS EVEN AND UNLABORED. WOUND ON L SHOULDER WAS DRESSED BECUASE PT WAS PICKING AT IT. PT WAS INCONTINET T/O THE NIGHT. PT SLEPT MOST OF THE NIGHT, NO ACUTE EVENTS. CALL LIGHT IN REACH, BED IN LOWEEST POSTION, WILL CONTINUE TO MONITOR UNTIL DAYSHIFT NURSE ARRIVES.
--- NOTE | 2019-06-21 13:12 | NUR ---
Pt resting in bed upon arrival. Pt appears mildly anxious as evidenced by picking at her scabs. No other non verbal indicators of discomfort. Pt is pleasantly comfused. Spoke with bedside SANDRO Borges and discussed case. Palliative Care will remain available.
--- NOTE | 2019-06-21 16:43 | NUR ---
SHIFT SUMMARY PATIENT DENIES PAIN, NAUSEA, AND SHORTNESS OF BREATH. PATIENT MEDICATED X1 FOR ITCHING. PATIENT REPOSITIONED Q2 AND HELPS WITH BED MOBILITY. PATIENT EATING AND DRINKING WELL TODAY. PATIENT IN GOOD SPIRITS. PATIENT HAD PHONE INTERVIEW FOR A POSSIBLE PLACEMENT FACILITY.
--- NOTE | 2019-06-22 00:59 | NUR ---
PATIENT HAVING INCREASED CONFUSION AND AGITATION. SEROQUEL GIVEN PRN PER EMAR. CALL LIGHT IN REACH.
--- NOTE | 2019-06-22 03:08 | NUR ---
PATIENT INCREASE AGITATION. YELLING, SCREAMING, AND CURSING AT STAFF. PATIENT NOT ABLE TO ORIENT AT THIS TIME. PATIENT MULITPLE BED EXITS ATTEMPTS WITH STAFF IN ROOM AND SOON STAFF LEAVES.
--- NOTE | 2019-06-22 03:56 | NUR ---
HOSPITALIST DR JONES ORDERED IM HALDOL 2 MG Q6 PRN FOR AGITATION.
--- NOTE | 2019-06-22 04:11 | NUR ---
SHIFT SUMMARY ON COMFORT CARE.PATIENT INCREASE AGITATION T/O THE SHIFT. SEROQUEL 50 MG PO GIVEN FIRST AND PATIENT DID NOT RESPOND TO IT. MULTIPLE BED EXIT ATTEMPTS EVEN WITH STAFF IN ROOM. PATIENT NOT ABLE TO REORIENT. YELLING, SCREAMING, AND CURSING. HOSPITALIST DR JONES NOTIFIED AND ORDERED IM HALDOL 2 MG Q6 PRN. NO IV ACCESS. [place]. AXO TO SELF/FAMILY. TAKES MEDICATION CRUSHED IN APPLE SAUCE. DENIES PAIN, SOB, AND N/V. PATIENT KEEPS REPEATING SAME REQUEST AND SAME ANSWERS GIVEN PER STAFF. CALL LIGHT IN REACH. BED ALARM ACTIVATED. WILL CONTINUE TO MONITOR UNTIL DAY SHIFT NURSE ASSUMES CARE.
--- NOTE | 2019-06-22 07:45 | NUR ---
ASSUMED CARE OF PT- BEDSIDE REPORT COMPLETED WITH NIGHT RN TRAE. PER REPORT PT HAD A FALL LAST NIGHT AND WAS VERY AGGITATED T/O THE NIGHT. PT RECIEVED 2 PO PRN MEDICATIONS WELL 1 IM DOSE OF MEDICATIONS. PT IS CURRENTLY RESTING PEACFULLY WITH NO S&S OF DISTRESS. D/T HIGH FALL RISK PLAN IS FOR PT TO TRANSFER TO THE [facility] THIS MORNING.
--- NOTE | 2019-06-22 09:00 | NUR ---
PT SLEEPING SOUNDLY NO S&S OF DISTRESS RESP E/U. PT HEAVILY MEDICATED AT NIGHT D/T EXTREME AGGITATION MAY BE EXTRA DROWSY TODAY.
--- NOTE | 2019-06-22 16:26 | NUR ---
Comfort Care: Pt resting comfortably. She had fallen during the night and was agitated. She recieved IM medication and two doses of seroquel to assist with symptoms. According to nurse, pt has been sleepy and drowsy today. She wakes up during attends changes and is able to somewhat reposition herself in bed, but quickly falls back asleep. No other concerns. Discussed giving pain medication when she wakes up. Pt has chronic back pain that requires medication for good control. Will remain available for symptom management. Pt is being placed by care management when able.
--- NOTE | 2019-06-22 17:15 | NUR ---
CLINICAL UNIT EDUCATOR'S CHANGED AND PERFORMED PERSONAL CARE. PT AGAIN RESTING COMFORTABLY AT THIS TIME NO S&S OF DISTRESS.
--- NOTE | 2019-06-22 17:16 | NUR ---
PT WOKE TO STAFF VOICES AND SPOKE FOR A FEW MINUTES THEN WENT BACK TO SLEEP STATING SHE WILL EAT DINNER WHEN IT ARRIVES.
--- NOTE | 2019-06-22 17:18 | NUR ---
SHIFT SUMMARY- PT HAS SLEPT THROUGH THE SHIFT NO S&S OF DISTRESS, PAIN OR SOB NOTED. PT SLEEPING ON ROOM AIR RESP E/U. WILL CONTINUE TO MONITOR AND PASS ON TO CAMP RECREATION SPECIALIST IN REPORT.
--- NOTE | 2019-06-22 21:35 | NUR ---
PATIENT BED EXIT X TWO ACTIVATING BED ALARM. PATIENT BACK IN BED.
--- NOTE | 2019-06-23 04:22 | NUR ---
SHIFT SUMMARY COMFORT CARE PATIENT RESTING IN BED AFTER BEING UP FIRST PART OF SHIFT AND WANTING TO BED EXIT. SEROQUEL 50 MG GIVEN PER EMAR PRN. DENIES PAIN, SOB, AND N/V. CONFUSED AND KEEPS REPEATING HERSELF. NO IV ACCESS. TAKES MEDICATION CRUSHED IN APPLESAUCE. CALL LIGHT IN REACH. BED IN LOWEST POSITION AND ALARM ACTIVATED. WILL CONTINUE TO MONITOR UNTIL DAY SHIFT NURSE ASSUMES CARE.
--- NOTE | 2019-06-23 08:12 | NUR ---
NO C/O PAIN; PT IN NO APPARENT DISTRESS. NO DYSPNEA/SOB/SECRETIONS. NICOTINE TOP IN PLACE. NO FAMILY PRESENT. WCTM.
--- NOTE | 2019-06-23 11:26 | NUR ---
Pt alert somwhat forgetfull complains of low back pain and soreness. Want to talk and needs attention. Review with nursing. pt wanted chocolate cake and coffe. Got her cake and thickened coffee. Therputic time and touch. pt feeling very isolated and tearfull wants to go ouside and smoke. MOr fail and tin lookin today. Will request discontinue nicotine patch will request scheduled pain low dose pain meds. Hops is with better pain management reduce aggitation. Will follow up with care managment on monday if no plan to dischareg will request she be moved to memory care [facility] and put in chair in hallway during day for some social interaction.
--- NOTE | 2019-06-23 14:44 | NUR ---
PT IN NO APPARENT DISTRESS. NO DYSPNEA/SOB/SECRETIONS. NO FAMILY PRESENT. WCTM.
--- NOTE | 2019-06-23 14:47 | NUR ---
NO C/O PAIN; PT IN NO APPARENT DISTRESS. NO DYSPNEA/SOB/SECRETIONS. NO FAMILY PRESENT. WCTM.
--- NOTE | 2019-06-23 15:11 | NUR ---
TRANSFER: PATIENT TRANSFERED FROM ROOM 328. PATIENT RESTING IN BED AND ANSWERING QUESTIONS APPROPRIATELY. REPORT RECEIVED FROM JONATHAN Thayer RN. PATIENT APPEARS COMFORTABLE AND DENIES NEEDS AT THIS TIME.
--- NOTE | 2019-06-23 15:25 | NUR ---
TRANSFER OF CARE; PATIENT XFR TO ROOM 350. REPORT GIVEN TO SANDRO GUEVARA.
--- NOTE | 2019-06-23 17:16 | NUR ---
COMFORT: PATIENT SITTING UP IN BED EATING HER DINNER. DENIES NEEDS AT THIS TIME. APPEARS CALM AND COMFORTABLE.
--- NOTE | 2019-06-23 17:20 | NUR ---
CALL TO SON: CALLED THE PATIENT'S SON TO NOTIFY HIM OF THE FACT THAT THE PATIENT HAS BEEN MOVED TO ROOM 350. ALSO UPDATED THE SON TO HER CURRENT STATUS (CALM, COMFORTABLE, SITTING UP IN BED EATING DINNER). ENCOURAGED THE SON TO SPEAK WITH HIS MOTHER OVER THE PHONE (EITHER CALLING INTO THE ROOM, OR HAVING STAFF ASSIST WITH CALLING HIM). HE DID NOT MAKE A COMMITTMENT TO SPEAKING WITH THE PATIENT AT THIS TIME.
--- NOTE | 2019-06-23 18:36 | NUR ---
END OF SHIFT SUMMARY: PATIENT DENIED PAIN OR DISCOMFORT THROUGHOUT THIS AFTERNOON. PATIENT TRANSFERED FROM THE MAIN FLOOR TO THE [facility] THIS AFTERNOON. PATIENT'S SON WAS NOTIFIED. PATIENT STAYED IN BED FOR THE EVENING. NO ATTEMPTS WERE MADE TO JUMP OUT OF BED. PATIENT ATE CAREFULLY WITHOUT ANY VISUAL SIGNS OR SYMPTOMS OF DIFFICULTY SWALLOWING. PATIENT LEFT THE DRESSINGS ON HER ARMS.
--- NOTE | 2019-06-23 23:58 | NUR ---
PATIENT SLEEPING COMFORTABLY IN BED.
--- NOTE | 2019-06-24 02:03 | NUR ---
PATIENT SLEEPING COMFORTABLY IN BED
--- NOTE | 2019-06-24 05:58 | NUR ---
SHIFT SUMMARY PATIENT WAS ABLE TO SLEEP COMFORTABLY FOR MOST OF THE NIGHT. SHE REMOVED A SCAB FROM HER LEFT SHOULDER AND THE DRESSING FROM HER LEFT KNEE. THIS NURSE CLEANED THE WOUNDS AND APPLIED A MEPILEX TO THE SHOULDER, NON ADHERENT PADS AND KERLEX TO THE KNEE. BED IN LOWEST POSITION WITH WHEELS LOCKED. CALL LIGHT WITHIN REACH. REPORT GIVEN TO ONCOMING RN.
--- NOTE | 2019-06-24 07:55 | NUR ---
PT APPEARS TO BE SLEEPING, APPEARS TO BE COMFORTABLE
--- NOTE | 2019-06-24 10:01 | NUR ---
PT AWAKE HAD BREAKFAST, GAVE TYLENOL
--- NOTE | 2019-06-24 11:57 | NUR ---
pt up in the chair out in the hallway having lunch appears to be breathing easily on ra
--- NOTE | 2019-06-24 14:46 | NUR ---
PT APPEARS TO BE COMFORTABLE, ALL WOUND DRESSINGS APPEAR C/D/I AT THIS TIME, CALL LIGHT IN REACH
--- NOTE | 2019-06-24 17:35 | NUR ---
PT IS A/OX3, PLEASANT AND COPERATIVE, THE PT DENIED ANY PAIN T/O THE DAY, THE PT APPEARS TO BE BREATHING EASILY ON RA AT THIS TIME, PT APPEARS TO BE COMFORTABLE, CALL LIGHT IN REACH, BED ALARM ON, WILL CONTINUE TO MONITOR AND ASSESS FOR CHANGES
--- NOTE | 2019-06-24 18:37 | NUR ---
PT REPORTED LEFT LEG PAIN GAVE ULTRAM FOR PAIN, BED ALARM TIMBER REPAIRER LIGHT IN REACH
--- NOTE | 2019-06-25 06:49 | NUR ---
PT continues on comfort care. She was medicated with seroquel 50 mg at hs and tylenol 325 mg po x 1 crushed with helpful effect. Fall precautions continue. Set off bed alarm x 1 when PT woke confused. Redirected & resting quietly.
--- NOTE | 2019-06-25 10:41 | NUR ---
Comfort Care Visit Pt resting in bed with her eyes closed. Pt appears comfortable with no S/S of distress at this time. Spoke with Bedside RN Stella. Kelly reports no concerns at this time. Palliative Care will remain available
--- NOTE | 2019-06-25 17:55 | NUR ---
SUMMARY PT RESTING IN BED WATCHING TV AND FINISHING HER DINNER, PT HAS BEEN PLEASANT AND COOPERATIVE WITH CARE, IS ON COMFORT CARE, HAS DENIED ANY PAIN OR SOB T/O THE DAY, NO COMPLAINTS, WILL CONT TO MONITOR
--- NOTE | 2019-06-26 05:06 | NUR ---
83 year old PT continues on comfort measures due to malnutrition and Severe sepis. She is pleasantly confused, no longer craves tobacco. She was medicated x 1 with ultram for pain with helpful effect, seroquel for insommnia with helpful effect. PT incontient of bowel bladder, assist with toileting by lifting hips. Skin care provided to promote healing prevent further breakdown. Linen & gown change done. PT has no calls or visits from Family this shift. She is affectionate and pleasant. Watches TV spelling out closed captions at times. Takes some nectar thick fluids and puddings feeds self without s/sx aspirations.
--- NOTE | 2019-06-26 10:24 | NUR ---
Pal Care Case Conference and brief visit to room. Spoke with pt's RN for current update and reviewed EMR. Pt sitting up in bed, smiling and laughing, watching TV and talking to herself in the room. I did not disturb her. Pal Care to remain available if needed/indicated.
--- NOTE | 2019-06-26 17:28 | NUR ---
SUMMARY PT SITTING UP IN BED EATING DINNER, HAS BEEN PLEASANTLY CONFUSED T/O THE DAY, WILL OCC PICK OFF HER ARM BANDAGES, NEEDS REMINDED TO LEAVE THEM ALONE, PT EASY TO REDIRECT, PLEASANT, NO S/S PAIN OR DISTRESS, IS ON COMFORT CARE, WILL CONT TO MONITOR
--- NOTE | 2019-06-27 05:06 | NUR ---
CORPORATION OFFICER SUMMARY PT STAYED AWAKE FOR MOST OF THE NIGHT. BENADRYL GIVEN FOR ITCHYNESS. PT NOTED TO BE ITCHING OCCASIONALLY ON UPPER BODY. MULTIPLE SKIN TEARS AND BONY PROMINENCES. MEPLEX, PETROLIUM GAUZE AND EXU-DRY PAD APPLIED TO SKIN TEARS. THESE ARE WRAPPED IN [place] BECAUSE PT KEEPS PICKING THEM OFF. SEROQUEL ALSO GIVEN. PT RECIEVED SOME SLEEP AFTER BENADRYL AND SEROQUEL WERE GIVEN. REPOSITIONED FREQUENTLY. SNACKS GIVEN. WILL CONTINUE TO MONITOR.
--- NOTE | 2019-06-27 15:15 | NUR ---
Comfort Care Visit Pt resting in bed upon arrival. Pt is pleasantly confused. Pt denies pain at this time. Pt appears comfortable with no S/S of distress at this time. Palliative Care will remain available.
--- NOTE | 2019-06-27 16:35 | NUR ---
PT CLIMBED OOB AND FELL TO FLOOR AT 1617 THIS AFTERNOON, BED ALARM WAS ARMED, RT ELBOW SKIN TEAR NOTED, T/C TO DR COPELAND, CHARGE NURSE AND PT'S SON JASIEL. NO NEW ORDERS RECEIVED. WILL CONTINUE TO MONITOR
--- NOTE | 2019-06-27 18:06 | NUR ---
NO ACUTE CHANGES, PT C/O SOME RT SIDED PAIN AND MEDICATED WITH 50MG PO TRAMADOL. WILL CONTINUE TO MONITOR AND REPORT TO ONCOMING RN
--- NOTE | 2019-06-27 20:19 | NUR ---
06/27/191999 RESTLESS AND C/O BACK DISCOMFORT. REPOSITIONED TO RT SIDE AND HAD SCANT VOID AND SCANT BROWN BM ON ATTENDS. RAE-CARE GIVEN. C/O ITCHING ON LEGS AND RUBBING AT THEM AND AROUND HER DRESSINGS. MEDICATED FOR PAIN AND ITCH PER MAY.
--- NOTE | 2019-06-28 | NUR ---
06/28/19 0000 AWAKE AND WATCHING TV. DENIES DISCOMFORT AND SIPS OF THICKENED WATER GIVEN. REFUSED TO TURN AT THIS TIME.
--- NOTE | 2019-06-28 05:20 | NUR ---
06/28/19 0515 AWAKENED FOR REPOSITIONING AND INCONTINENCE BRIEF CHANGED. PT PUT ON CONTINUOUS VIDEO MONITORING DUE TO HER HISTORY OF FALLS. MONITORING VERIFED WITH FAITH SOLAR ENERGY SYSTEMS ENGINEER. ENCOURAGED ORAL INTAKE BUT WILL ONLY TAKE FEW SIPS AT A TIME. MULTIPLE DRESSINGS TO SKIN ISSUES. SHE WILL OCC. PICK AT THEM AND/OR REMOVE THEM. RN CHANGED THEM PRN.
--- NOTE | 2019-06-28 07:56 | NUR ---
MEDICATED c BRISEYDA ACETAMINOPHEN PER EMAR. NO DYSPNEA/SOB/SECRETIONS. NO FAMILY PRESENT. WCTM.
--- NOTE | 2019-06-28 09:55 | NUR ---
PT IN NO APPARENT DISTRESS / NO C/O PAIN. NO DYSPNEA/SOB/SECRETIONS. NO FAMILY PRESENT. WCTM.
--- NOTE | 2019-06-28 11:29 | NUR ---
Comfort Care Visit Pt resting in bed with her eyes closed. Pt appears comfortable with no S/S of distress at this time. Spoke with Bedside RN Timi and discussed case. Palliative Care will remain available.
--- NOTE | 2019-06-28 12:22 | NUR ---
NO C/O PAIN/ PT IN NO APPARENT DISTRESS. NO DYSPNEA/SOB/SECRETIONS. NO FAMILY PRESENT. WCTM.
--- NOTE | 2019-06-28 14:41 | NUR ---
NO C/O PAIN; PT IN NO APPARENT DISTRESS. NO DYSPNEA/SOB/SECRETIONS. NO FAMILY PRESENT. WCTM.
--- NOTE | 2019-06-28 16:24 | NUR ---
COMFORT CARE ASSESSMENT: NO C/O PAIN/ NPT IN NO APPARENT DISTRESS. NO DYSPNEA/SOB/SECRETIONS. NO FAMILY PRESENT. WCTM.
--- NOTE | 2019-06-28 17:18 | NUR ---
COMFORT CARE ASSESSMENT: MEDICATED FOR PAIN & AGITATION PER EMAR. NO DYSPNEA/SOB/SECRETIONS. NO FAMILY PRESENT. WCTM.
--- NOTE | 2019-06-28 18:27 | NUR ---
COMFORT CARE ASSESSMENT: NO C/O PAIN; PT IN NO APPARENT DISTRESS. NO DYSPNEA/SOB/SECRETIONS. NO FAMILY PRESENT. WCTM.
--- NOTE | 2019-06-28 19:12 | NUR ---
SHIFT SUMMARY: NO ACUTE CHANGES TO REPORT THIS SHIFT. PT HX DEMENTIA; REDIRECTABLE; COOPERATIVE WITH CARE. MEDICATED FOR PAIN & AGITATION PER EMAR. COMFORT CARE MEASURES CONTINUING. REPORT GIVEN TO ONCOMING RN.
--- NOTE | 2019-06-29 02:46 | NUR ---
BILINGUAL SALES ASSISTANT SUMMARY Awake most of night. Very animated and pleasant to work with. Very minimal urine output. One slightly damp brief around 0200. Encouraged nectar thick fluids in various flavors, but could only get her to take sips at a time. Patient removed several of her mepilex which were simultaneously removed again as were her briefs. Topical benedryl given with good relief to back irritation around 0200. No signs or complaints of pain. Buttocks red. lotion applied.
--- NOTE | 2019-06-29 07:39 | NUR ---
RECEIVED LAB DRAWS TODAY. TOLERATED WELL. SpearFysh TALKED ABOUT GARDENING AND OTHER AREAS OF INTEREST WHILE PERFORMING LAB DRAW.
[2019-06-29 07:45] LABS: Hematocrit 35.7 % (33.0-51.0); Hemoglobin 11.2 g/dL (11.5-16.0)
[2019-06-29 08:05] LABS: Albumin, Blood 2.4 g/dL (3.4-5.0); Anion Gap 2 mmol/L (6-16); Blood Urea Nitrogen 14 mg/dL (8-24); Bun/Creatinine Ratio 27.1 (12.0-20.0); CO2, Blood 32 mmol/L (21-32); Calcium, Blood 8.4 mg/dL (8.5-10.1); Chloride, Blood 106 mmol/L (98-108); Creatinine, Blood 0.52 mg/dL (0.40-1.00); Glomerular Filtration Rate >60 (60-); Glucose, Blood 87 mg/dL (70-99); Magnesium, Blood 2.1 mg/dL (1.6-2.4); Phosphorus, Blood 2.6 mg/dL (2.5-4.9); Potassium, Blood 4.1 mmol/L (3.5-5.5); Sodium, Blood 140 mmol/L (136-145)
--- NOTE | 2019-06-29 08:19 | NUR ---
UP EATING BREAKFAST, IN GOOD SPIRITS. TELLING STAFF SHE LOVES EVERYBODY. SPOKE WITH ST. THEY STATED IF PATIENT IS EATING WELL WITHOUT COMPLICATIONS IT IS OKAY TO DOWN GRADE HER SUPERVISION WHILE EATING STATUS. PATIENT IS COMFORT CARE. TOLERATING FOOD WELL. EATING WELL. APPROPRIATE WITH UTENSILS AND CHEWING. AFTER DISCUSSION WITH AYAH BENZ WILL DO SET UP OF MEALS. ASSIST AND SUPERVISE NEEDED BASED ON PATIENT CONDITION ON A DAILY BASIS.
--- NOTE | 2019-06-29 11:41 | NUR ---
PATIENT CURRENTLY ASLEEP. ATTENDS CHANGED. LINEN CHANGED. COMFORTABLE AT THIS TIME.
--- NOTE | 2019-06-29 14:00 | NUR ---
Comfort Measures: Pt sitting up awake in bed. No complaints. Symptoms are managed, no s/s of distress. Will remain available. Pt waiting for placement.
--- NOTE | 2019-06-29 14:12 | NUR ---
NEW MEPILEX PLACED TO L ARM, MESH OVER MEPILEX IN HOPES PATIENT WONT PULL IT OFF. PATIENT SITTING UP IN BED CHATTING WITH STAFF. IN GOOD SPIRITS TODAY.
--- NOTE | 2019-06-29 18:39 | NUR ---
SHIFT SUMMARY PATIENT HAS HAD NO ACUTE CHANGES. CONTINUES TO BE PLEASANTLY CONFUSED.
--- NOTE | 2019-06-30 04:34 | NUR ---
PAPER AND PULP MILL OPERATOR SUMMARY Patient had complaints of low back pain at HS which resolved with Scheduled Tylenol and PRN Tramadol. Hands in stool during one episode of turning. Incont of medium soft BM. Patient actually left mepilex dressings alone and slept most of the shift. Pleasant and cooperative with care.
--- NOTE | 2019-06-30 14:20 | NUR ---
Comfort Care: Pt doing well. Discussed medications with nursing. Lynn states that she is concerned about continuing to crush meds in applesauce if the pt's swallowing ability further declines. Recommend monitoring swallow and switch to roxanol if pt demonstrates swallowing difficulty. She is currently taking tramadol for pain. She reports pain when assessed. Her chronic back pain is what is bothering her the most at this time. Will remain available and monitor medications.
--- NOTE | 2019-06-30 16:26 | NUR ---
SHIFT SUMMARY PATIENT MEDICATED SCHEDULED FOR PAIN. DENIES NAUSEA AND SHORTNESS OF BREATH. PATIENT PLEASANT AND COOPERATIVE WITH CARE. PATIENT HAS POOR PO INTAKE. PATIENT REPOSITIONED Q2. WOUND CARE NEEDED. PATIENT REMINDED NOT TO REMOVE DRESSINGS. CALL LIGHT IN REACH.
--- NOTE | 2019-06-30 21:53 | NUR ---
REPOSITOINED. CLEANED DUE TO INCONT OF FECES. CALL LIGHT IN REACH
--- NOTE | 2019-06-30 21:54 | NUR ---
CALLING OUT A NAME, ASKED BY STAFF IF SHE WAS OK, SHE SAID "IM FINE". DENIED PAIN. AFFECT SEEMS CHEERFUL. CALL LIGHT IN REACH
--- NOTE | 2019-06-30 23:38 | NUR ---
AWAKE, PLAYING WITH TV CONTROL. NO NOTED ACUTE DISTRESS. CALL LIGHT IN HAND.
--- NOTE | 2019-07-01 01:02 | NUR ---
AWAKE AT INTERVALS. OCCASIONAL CALLING OUT FOR FAMILY MEMBERS. INCONT OF URINE AND FECES A FEW TIMES. CHANGED NEEDED. NO NOTED ACUTE DISTRESS. OCCASIONALLY ACCEPTS APPLESAUCE AND FLUIDS. COMFORT CARE CONTINUES. CALL LIGHT IN REACH.
--- NOTE | 2019-07-01 03:39 | NUR ---
REPOSITIONED. CLEANED UP FROM INCONT OF URINE. CALL LIGHT IN REACH
--- NOTE | 2019-07-01 05:23 | NUR ---
INCONT OF FECES. PT CARE DONE AND LINEN CHANGED. CALL LIGHT IN REACH.
--- NOTE | 2019-07-01 10:09 | NUR ---
CIGARETTE MAKER GAVE PATIENT A SHOWER. NEW MEPLIEX PLACED TO L LEG ONLY ALL OTHER WOUNDS ARE HEALING NICELY. PATIENT IN BED REQUESTING TV ON. THIS RN ASSISTING WITH PT NEEDS.
--- NOTE | 2019-07-01 14:14 | NUR ---
PATIENT PICKING AT DRESSINGS. SITTING QUIETLY IN BED. PLEASANTLY. NO CHANGE IN HER CONDITION.
--- NOTE | 2019-07-01 14:46 | NUR ---
CASE CONFERENCE NOTE: Spoke with pt's RN re: current status and advanced care planning. Pt is awaiting placement with hospice. RN to call CM again re: update on attempts at placement and dc planning. RN reports that pt is without any distressing s/s at this time. This has been true for weeks. No visit made today.
--- NOTE | 2019-07-01 17:24 | NUR ---
TRANSFERED BACK TO BED AFTER PATIENT TRIED TO GET UP OUT OF THE CHAIR MULTIPLE TIMES. GIVEN AN EARLY MEAL TRAY. YELLING OUT FOR GRANDDAUGHTER. IN GOOD SPIRITS OVERALL.
--- NOTE | 2019-07-01 19:15 | NUR ---
ASSUMED CARE RECEIVED REPORT FROM STEPHANIE RN. ASSUMED CARE OF PT. IN NO ACUTE DISTRESS AT THIS TIME. CALL LIGHT, POSSESSIONS IN REACH, BED IN LOWEST POSITION WITH BED ALARM ACTIVATED. WILL CONTINUE TO MONITOR.
--- NOTE | 2019-07-01 20:49 | NUR ---
2014 COMFORT CARE UPON ENTRY TO ROOM PATIENT HOLDING POOP IN HER HAND; STATED NEEDED HELP CLEANING IT UP. PATIENT UP WITH 1P ASSIST & FWW TO BATHROOM; SLOW, STEADY GAIT. CLEANED HANDS; VOIDED AND CHANGED BREIF. BARRIER CREAM APPLIED TO COCCYX. BED IN LOWEST POSITION; ALARM ON. CALL LIGHT WIHTIN REACH.
--- NOTE | 2019-07-01 22:15 | NUR ---
3023 COMFORT CARE ASSESSMENT PT ASLEEP COMFORTABLY AT THIS TIME, NO S/S ACUTE DISTRESS NOTED. NO S/S PAIN. CALL LIGHT, POSSESSIONS IN REACH, BED IN LOWEST POSITION WITH BED ALARM ACTIVATED. WILL CONTINUE TO MONITOR.
--- NOTE | 2019-07-02 00:15 | NUR ---
0015 COMFORT CARE ASSESSMENT PT REQUESTING A SNACK AT THIS TIME, SET-UP BEDSIDE TABLE FOR PT TO FEED SELF. TOLERATING WELL. CALL LIGHT AND POSSESSIONS IN REACH, BED IN LOWEST POSITION WITH BED ALARM ACTIVATED. WILL CONTINUE TO MONITOR.
--- NOTE | 2019-07-02 02:59 | NUR ---
0259 COMFORT CARE ASSESSMENT PT ASLEEP AT THIS TIME, NO S/S DISTRESS NOTED. CALL LIGHT, POSSESSIONS IN REACH, BED IN LOWEST POSITION WITH BED ALARM ACTIVATED. WILL CONTINUE TO MONITOR.
--- NOTE | 2019-07-02 04:27 | NUR ---
SHIFT SUMMARY: PT RESTING COMFORTABLY AT THIS TIME, WAS AWAKE ON AND OFF T/O NIGHT. KEPT CLEAN, DRY AND COMFORTABLE. PT HAD EPISODES OF HOLDING POOP X2, ENCOURAGED PT PARTICIPATION TO HELP WITH CLEAN UP. RE-ORIENTED NEEDED. CALL LIGHT, POSSESSIONS IN REACH, BED IN LOWEST POSITION WITH ALARM ON. WILL CONTINUE TO MONITOR UNTIL DAY RN ASSUMES CARE.
--- NOTE | 2019-07-02 05:00 | NUR ---
PT SLEEPING, AROUSES TO STIMULI. FLACC SCALE OF 2 FOR BACK PAIN. DENIES ANY OTHER DISCOMFORT. CALL LIGHT AND POSSESSIONS IN REACH, BED IN LOWEST POSITION WITH ALARM ON. WILL CONTINUE TO MONITOR.
--- NOTE | 2019-07-02 06:44 | NUR ---
PT REMAINS ASLEEP AT THIS TIME. NO S/S DISCOMFORT NOTED, APPEARS COMFORTABLE. CALL LIGHT, POSSESSIONS IN REACH, BED IN LOWEST POSITION WITH ALARM ON.
--- NOTE | 2019-07-02 11:30 | NUR ---
PAL CARE COMFORT CARE VISIT: Pt sound asleep upon entering the room. She did not wake to voice or gentle touch. She appears very peaceful and comfortable at this time. I spoke with pt's RN, who reports s/s well managed. Spoke with CM re: ongoing dc planning efforts. Pal care will remain available as needed.
--- NOTE | 2019-07-02 17:59 | NUR ---
SHIFT SUMMARY PT RESTING COMFORTABLY IN BED. PT SHOWERED & UP TO CHAIR FOR A SHORT WHILE THIS SHIFT. PT DENIESANY DISCOMFORT AT THIS TIME AND FOR MOST THE SHIFT. PT MEDICATED FOR PAIN/AGITATION ONCE THIS SHIFT. NO OTHER CHANGES IN ASSESSMENT AT THIS TIME. WILL CONTINUE TO MONITOR UNTIL TURNOVER IS COMPLETE.
--- NOTE | 2019-07-03 05:34 | NUR ---
ROTATING FIELD ASSEMBLER REPORT PT ON COMFORT CARE. PT VERY [place]. PT HAS SLEPT ON AND OFF THIS SHIFT. REPOSITIONED AND CARE GIVEN THROUGHOUT THE NIGHT. A FEW SNACKS HAS BEEN GIVEN. PT DENIED PAIN AT BEGINNING OF SHIFT. PT STARTED SAYING "OUCH" AROUND 0200 COMPLAINING OF BACK PAIN. ASPERCREAM APPLIED TO BACK. PT CALLED OUT FOR SOMEONE NAMED "DOM" MULTIPLE TIMES TONIGHT. WHEN ASKING PT WHO "DOM" WAS, SHE SHRUGGED HER SHOULDERS AND SAID SHE DOESN'T KNOW. SHE STATED SHE SAW SOMEONE ON THE WALL "A GIRL WITH HAIR". SHE WAS NOT TALKING ABOUT ME I WAS STANDING TO THE RIGHT OF HER AND NOT IN FRONT OF HER IN THE DIRECTION SHE WAS LOOKING AT. PT DENIES HEARING OF ANYTHING OTHER THAN ME WHEN I WAS TALKING TO HER.
--- NOTE | 2019-07-03 16:21 | NUR ---
Spiritual care note: Mrs. Carl is confused and talkative. She alternated between feeling "too hot" and "too cold." She appeared restless--unable to focus on conversation. She denies pain and appeares well cared-for by nursing. She does ot know where she is, but this does not appear to bother her. She allowed me to pray for her. I will remain available.
--- NOTE | 2019-07-03 17:25 | NUR ---
SHIFT SUMMARY PT HAS NOT COMPLAINED OF DISCOMFORT THIS SHIFT. PT HAD LARGE BM THIS SHIFT. NO OTHER CHANGES IN COMFORT ASSESSMENT AT THIS TIME. WILL CONTINUE TO MONITOR UNTIL TURNOVER IS COMPLETE.
--- NOTE | 2019-07-04 04:21 | NUR ---
SHIFT SUMMARY PT HAS HAD NO ACUTE CHANGES THIS SHIFT, MEDICATED 1X FOR ANXIETY, 1X FOR PAIN, PT SLEEPING AT THIS TIME, CALL LIGHT IN REACH, ALARM IN PLACE, WILL CONT TO MONITOR UNTIL REPORT GIVEN TO DAY RN.
--- NOTE | 2019-07-04 07:32 | NUR ---
REMOTE MONITORING THIS RN VERIFIED WITH REMOTE MONITOR CHHAYA THAT CAMERA IS ON.
--- NOTE | 2019-07-04 08:15 | NUR ---
SUPERINTENDENT FACTORY REPOSITIONED PATIENT AND SAT UP IN BED FOR BREAKFAST, MEDICATED PER EMAR
--- NOTE | 2019-07-04 10:36 | NUR ---
WOUND CARE WOUND CLEANSED AND NEW DRESSINGS APPLIED, WRAPPED WITH KERLEX. PATIENT TOLERATED WELL. WOUND WAS STICKY BUT DOES NOT APPEAR TO HAVE MUCH DRAINAGE.
--- NOTE | 2019-07-04 12:03 | NUR ---
PATIENT HAD BEDBATH AND HAIR SHAMPOOED. UP IN RECLINER HAVING LUNCH AND SITTING IN HALLWAY COLORING AT THIS TIME.
--- NOTE | 2019-07-04 12:05 | NUR ---
visit with patient some theraputic time with pt. coloed with her and brought her some art. requested chocolate deserert fro her trays. checke backa fter lunch still minimal po intake. pt shows some improvements. However she still wants to smoke. continue with hospice plan hope is placement and letter her have a rare cigarette and all the cocolate she wants. will continue to offer stimulus and engagement but sleeping most of time put her out in hallway today to give her some variety. staff has been offering variety of foods and frequent companionship.
--- NOTE | 2019-07-04 13:34 | NUR ---
PT SITTING IN RECLINER WATCHING TV. DENIES PAIN AND NEEDS AT THIS TIME.
--- NOTE | 2019-07-04 15:24 | NUR ---
PT SLEEPING SOUNDLY AND COMFORTABLY IN BED. CALL LIGHT NEAR, BED IN LOWEST POSITION. WILL MONITOR.
--- NOTE | 2019-07-04 16:32 | NUR ---
Shift Summary No acute changes this shift. Patient has been pleasant and cooperative with all care. Appetite is poor, but probably baseline. No signs of agitation, denies pain. Dressing on L lower leg changed and wrapped with kerlex, patient tolerated well. Mepilex on coccyx changed as well, mild skin breakage on bony area of coccyx. Will continue to reposition as patient allows.
--- NOTE | 2019-07-04 16:58 | NUR ---
PATIENT IS UP IN CHAIR FOR DINNER.
--- NOTE | 2019-07-05 05:25 | NUR ---
SHIFT SUMMARY PT HAS HAD NO ACUTE CHANGES THIS SHIFT, NO C/O ANY KIND, PT YELLS OUT FOR "DARRIN" AT BEDTIME AND IS ONLY BRIEFLY REDIRECTABLE, SLEPT WELL AFTER SEROQUEL ADMIN, INCONT CHANGES & Q2 REPOS T/O SHIFT, PT COOPERATIVE AND EASILY RETURNS TO SLEEP, PT SLEEPING AT THIS TIME, ALARM IN PLACE, CALL LIGHT IN REACH, WILL CONT TO MONITOR UNTIL REPORT GIVEN TO DAY RN.
--- NOTE | 2019-07-05 08:02 | NUR ---
REMOTE MONITORING VERIFIED WITH KIARA THAT REMOTE MONITORING IS ON FOR THIS PATIENT.
--- NOTE | 2019-07-05 08:04 | NUR ---
PATIENT ASLEEP RESTING IN BED THIS MORNING.
--- NOTE | 2019-07-05 11:14 | NUR ---
PT C/O ITCHINESS AND BACK PAIN, DECLINED PO PAIN MEDS. THIS RN OFFERED TO RUB AREA WITH BENADRYL CREAM AND ASPERCREME. PT AGREEABLE.
--- NOTE | 2019-07-05 11:41 | NUR ---
pt up in chair good interaction today. will see if any changes in familyies ability to take her home.
--- NOTE | 2019-07-05 16:24 | NUR ---
Shift Summary No acute changes this shift. Patient has tolerated up in chair and back to bed for meals. Appetite remains the same as yesterday. Pleasantly confused and coloring drawings with markers. No c/o major pain except back pain, declined pain meds, ok with aspercreme to back. Will continue to monitor for comfort and safety.
--- NOTE | 2019-07-05 21:29 | NUR ---
PATIENT ON COMFORT CARE. CONTINUES TO CALL OUT FOR DAUGHTER DOM. TOOK MEDICATION CRUSHED IN APPLE SAUCE. TALKS TO SELF. NO SIGN OF DISTRESS OR PAIN. BED ALARM ACTIVATED. WILL CONTINUE TO MONITOR.
--- NOTE | 2019-07-06 03:48 | NUR ---
SHIFT SUMMARY PATIENT ON COMFORT CARE. AXO TO SELF. HX DEMENTIA. TAKES MEDICATION CRUSHED IN APPLE SAUCE. NO IV ACCESS. SEROQUEL GIVEN X TWO PER EMAR FOR AGITATION. CALLS OUT TO PRIYANKA FERNANDES T/O SHIFT. AUDITORY HALLUCINATIONS. PATIENT HAS NOT SLEPT THIS SHIFT WORKING ON COLORING PICTURES AND TV ON. PATIENT DOES NOT WANT ROOM LIGHTS OFF. NO S/SX OF PAIN OR DISTRESS. CALL LIGHT IN REACH. BED IN LOWEST POSITION AND BED ALARM ACTIVATED. WILL CONTINUE TO MONITOR UNTIL DAY SHIFT NURSE ASSUMES CARE.
--- NOTE | 2019-07-06 05:56 | NUR ---
BED EXIT ALARM. PATIENT REACHING OVER SIDE OF BED FOR FALLEN CALL LIGHT AND BLANKET. PATIENT REPOSITIONED AND CALL LIGHT AND BLANKET IN REACH. BED ALARM ACTIVATED. PATIENT HAS NOT SLEPT THIS SHIFT. CALLING OUT FOR DOM T/O SHIFT.
--- NOTE | 2019-07-06 16:13 | NUR ---
SHIFT SUMMARY NO ACUTE CHANGES TO PRESENT THIS SHIFT. PT HAS BEEN PLEASANTLY CONFUSED, BUT CO-OP WITH CARE. [place] L[place] AND VERY FORGETFUL. PT IS CURRENTLY ON COMFORT CARE WAITING PLACEMENT; POSSIBLY ON MONDAY PER REPORT. PT IS VERY THIN WITH POOR APPETITE. PER REPORT, PT HAS BEEN EATING AND DRINKING A LITTLE BETTER, THAN WHEN FIRST PLACED ON COMFORT CARE. HOWEVER, REMAINS VERY THIN AND FRAIL. PT ASSISTED UP TO SHOWER TODAY BY PHOTOGRAPHER MOTION PICTURE. LINENS AND GOWN CHANGED. DRSG TO LLE THEN CHANGED WHEN PT BACK TO BED. WOUND TO LLE CONTINUES TO HEAL SLOWLY. PER SHIFT REPORT, PT REMAINED AWAKE ALL NIGHT AND ALL DAY TODAY WELL, TAKING ONLY A FEW MINUTE NAP RIGHT BEFORE BREAKFAST. PT HAS BEEN OOB TO CHAIR AND SITTING UP IN BED COLORING AND TALKING TO HERSELF. NO S/SX OF DISTRESS NOTED. CALL LT IN REACH. TAB ALARM ON PT IS TO LIGHT TO ALLOW BED ALARM TO BE SET.
--- NOTE | 2019-07-06 19:00 | NUR ---
Comfort Care: Pt alert. She is calling out to the hallway with random requests. She is not in distress. Chart reviewed, medications reviewed.
--- NOTE | 2019-07-06 21:18 | NUR ---
PATIENT INCREASED AGITATION. PULLING WOUND DRESSING OFF AND TRYING TO BED EXIT. CAMERA MONITOR REPORTED ATTEMPTED BED EXITS AND PULLING AT DRESSINGS X THREE. BED ALARM ACTIVATED A FEW TIMES. SEROQUEL PRN GIVEN PER EMAR. BED ALARM SET.
--- NOTE | 2019-07-06 22:28 | NUR ---
PATIENT SLEEPING AT THIS TIME. PO BENEDRYL GIVEN FOR ITCHING RELIEF TO HELP SLEEP. PATIENT HAS ONLY SLEPT FOR ONE HOUR IN LAST 24 HOURS PLUS. PATIENT NEVER SLEPT ON LAST NOC SHIFT AND DAY RN REPORTS SHE SLEPT FOR ONE HOUR. WILL CONTINUE TO MONITOR.
--- NOTE | 2019-07-07 03:15 | NUR ---
PATIENT SLEEPING THE LAST FIVE HOURS. CALL LIGHT IN REACH.
--- NOTE | 2019-07-07 04:21 | NUR ---
SHIFT SUMMARY PATIENT ON COMFORT CARE WITH HX OF PROGRESSIVE DEMENTIA. BEDFAST AND NO IV ACCESS. PATIENT CALLING OUT FOR HOURS FROM THE START OF SHIFT. PATIENT SLEPT <HR IN THE LAST 26 HOURS AND NOT AT ALL PREVIUOS NOC SHIFT. PATIENT MORE AGITATED THIS SHIFT AND SEROQUEL GIVEN PER EMAR. CONFUSED, [place], AND FORGETFUL. BED EXITS ALARM X THREE. CAMERA TECH ALSO REPORTED PATIENT PULLING OFF HER WOUND DRESSINGS MULTIPLE TIMES. PATIENT WOULD TRY TO REACH OVER SIDE OF BED OR EXIT BED REPORTING WANTING TO CLOSE WINDOW. BLINDS CLOSED FOR PATIENT AND WOUND DRESSINGS REAPPLIED. PATIENT ABLE TO SLEEP LAST SIX HOURS W/O INTERUPTIONS AFTER GIVEN BENADRYL FOR ITCHING/INSOMNIA. CALL LIGHT IN REACH. BED IN LOWEST POSITION AND BED ALARM ACTIVATED. WILL CONTINUE TO MONITOR UNTIL DAY SHIFT NURSE ASSUMES CARE.
--- NOTE | 2019-07-07 11:00 | NUR ---
Comfort Measures: Pt waiting placement. Symptoms appear managed. No concerns.
--- NOTE | 2019-07-07 12:37 | NUR ---
NO ACUTE CHANGES TO PRESENT THIS SHIFT. PT SLEPT THRU THE NIGHT AND UP TO BREAKFAST TODAY. HAS BEEN PLEASANT AND CO-OP. PT HAS BEEN EATING MUCH BETTER TODAY WELL. C/O LBP AT LUNCH TIME. MEDICATED PER EMAR WITH CREAM TO BACK. BED ALARM ON FOR SAFETY. WILL REPORT OFF TO CECILE JO.
--- NOTE | 2019-07-07 14:20 | NUR ---
PT UP IN BED TALKING TO SELF AND OTHERS. NO DISTRESS NOTED.
--- NOTE | 2019-07-07 17:49 | NUR ---
RESTING , NO DISTRESS NOTED
--- NOTE | 2019-07-07 18:21 | NUR ---
PT UP FOR DINNER.
--- NOTE | 2019-07-08 03:56 | NUR ---
SHIFT SUMMARY PATIENT ON COMFORT CARE AND MONITORED BY CAMERA TECH. BEDREST AND AXO X ONE TO SELF. DENIES PAIN, SOB, AND N/V. CALLED OUT FIRST AND LAST PART OF SHIFT. SEROQUEL GIVEN FOR AGITATION AND BENADRYL FOR ITCHING/INSOMNIA. PATIENT ABLE TO SLEEP ON/OFF FOR FOUR HOURS. CAMERA MONITOR REPORTS PATIENT PULLING OFF WOUND DRESSINGS. DRESSINGS REAPPLIED AND REWRAPPED. CALL LIGHT IN REACH. BED IN LOWEST POSITION AND ALARM ACTIVATED. WILL CONTINUE TO MONITOR UNTIL DAY SHIFT NURSE ASSUMES CARE.
--- NOTE | 2019-07-08 10:42 | NUR ---
PATIENT C/O PAIN IN HER BACK. MEDICATED WITH TRAMADOL. MULTIPLE SKIN TEARS TO BLE, PATIENT CONTINUES TO REMOVE DRESSINGS. ATTENDS DRY. PATIENT DENIES ANY FURTHER NEEDS AT THIS TIME.
--- NOTE | 2019-07-08 10:43 | NUR ---
PATIENT UP IN CHAIR, REPORTS HENRY IN BACK IS BETTER. CALL LIGHT WITHIN REACH.
--- NOTE | 2019-07-08 14:44 | NUR ---
PAL CARE COMFORT CARE VISIT AND CASE CONF WITH RN AND . PT reporting increased back and coccyx pain even with tramadol bid. Case conferenced with RN and reviewed current status and plan of care. Pt is cheerful, confused sitting in her reclined chair in room. She remains cachectic but RN reports pt has more interest in eating today than was reported to her. Called Dr to report increased pain and request additional pain medication for prn use. VO for Roxanol 5-10 mg SL/PO obtained & entered. Discussed with RN, plan to start with lowest dose of 5 mg Roxanol as pt has not been on narcotics and may require very little to achieve comfort and relief of back/coccyx pain. When pt is alone in her room she frequently continues talking and conversing. She is always happy to have staff in her room to talk to also and smiles easily when interacting with staff.
--- NOTE | 2019-07-08 17:21 | NUR ---
PATIENT REPOSITIONED AND MEPILEX PLACED TO COCCYX.
--- NOTE | 2019-07-08 17:28 | NUR ---
PATIENT GIVEN 5MG ROXINOL TO TREAT LOWER BACK BACK. ASPERCREAM ALSO BEING USED TO TREAT. PATIENT IS UP IN CHAIR.
--- NOTE | 2019-07-08 18:22 | NUR ---
PATIENT UP IN CHAIR COLORING. REPORTS PAIN IN COCCYX, BUT DOES NOT WANT ANYTHING RIGHT NOW TO TREAT IT. SEROQUEL WORKING WELL TO CONTROL AGITATION. PATIENT ATE VERY WELL TODAY AND ASKED FOR SNACKS BETWEEN MEALS. MEPILEX PLACED TO STAGE 2 PRESSURE SORE TO COCCYX, BUT PATIENT REMOVED. ASSISTING TO REPOSITION Q2 HOURS. HOLLERS OUT FOR HELP INSTEAD OF USING CALL LIGHT.
--- NOTE | 2019-07-08 20:14 | NUR ---
PT IS UP IN CHAIR, GIVEN WARM BLANKET, DENIES PAIN AT THIS TIME. LUNGS CLEAR, SKIN WARM AND DRY.
--- NOTE | 2019-07-09 00:24 | NUR ---
Patient transferred from chair to bed. Buttocks is red due to thinness. Pt positioned to left side. Pt is confused but pleasant.
--- NOTE | 2019-07-09 00:26 | NUR ---
Patient is resting much better tonight. Stable.
--- NOTE | 2019-07-09 01:38 | NUR ---
Pt c/o nausia, having some thick mucus up with retching, phenergan supp given, repositioned to right side.
--- NOTE | 2019-07-09 05:14 | NUR ---
Rn summary: Patient was up in the chair until 2129, she had been sleeping there. Pt to bed, resting well then became nausiated. Medicated with phenergan supp with good relief. Has rested well since. Repositioned side to side. No evidence of discomfort at this time. Call light in reach, likes the lights left on in the room. Will continue with freq monitoring.
--- NOTE | 2019-07-09 09:26 | NUR ---
AM ASSESSMENT- PT LYING IN BED ASLEEP, PT DOES NOT RESPOND TO VERBAL OR TOUCH. LS DIMINISHED, ON RA. HRR. DRESSING TO LFA AND LEFT LEG C/D/I. DNR WRISTBAND TO LEFT WRIST. WILL CONT TO MONITOR.
--- NOTE | 2019-07-09 10:00 | NUR ---
PAL CARE COMFORT CARE VISIT AND CASE CONFERENCE WITH RN Pt asleep and did not wake to voice. She appears very frail as usual. HOB elevated and pt lying on her right side. She is mouth breathing, even unlabored respirations. No nonverbal indicators of pain, discomfort or distress of any kind noted. Pt had reported increased pain and was started on Roxanol that was effective yesterday afternoon. Early this am, pt reported nausea and was given Phenergan ND. She has been very sleepy since then. Spoke to RN re: s/s management and medications, mood when awake. Pal care to continue comfort care visits daily.
--- NOTE | 2019-07-09 17:13 | NUR ---
SHIFT SUMMARY- PT ON COMFORT CARE. PT GIVEN ROXANOL X1 AND ASPERCREME TO LOWER BACK, PT DENIES ANY OTHER COMPLAINTS. PT VERY SLEEPY T/O THE AM BUT WOKE UP THIS AFTERNOON AND CONVERSTING WITH STAFF, OCC CALLS OUT. LS CLEAR, ON RA. HRR. FOAM DRESSING TO SACRAL AND LLE, REDNESS NOTED TO LEFT HIP. PT CONT TO AWAIT PLACEMENT.
--- NOTE | 2019-07-10 04:53 | NUR ---
SHIFT SUMMARY: PT IS ALERT AND ORIENTED TO SELF. PT IS CALM AND COOPERATIVE WITH CARE. PT IS ON BED REST, NOT UP OVERNIGHT, PT NORMALLY AMBULATES WITH A ONE PERSON ASSIST AND FWW. PT INCONTINENT ON SEVERAL OCCASIONS, CHANGED AND CLEANED NEEDED. PT REQUESTED SEVERAL SNACKS OVERNIGHT, GIVEN. PT DENIES PAIN, NAUSEA, VOMITING, AND SOB. PT SLEPT VERY LITTLE OVERNIGHT. BED IN LOW POSITION, CALL LIGHT WITHIN REACH, BED ALARM SET. WILL REPORT TO DAY NURSE.
--- NOTE | 2019-07-10 07:45 | NUR ---
APPEARS VERY COMFORTABLE AND REQUESTING BREAKFAST.
--- NOTE | 2019-07-10 09:45 | NUR ---
SITTING UP IN BED. EATING INDEPENTLY AND PILLS WHOLE IN APPLESAUCE. CONFUSED CONVERSATION. HUSLIA. PLEASANT/COOP AT THIS TIME.
--- NOTE | 2019-07-10 17:52 | NUR ---
pt having some back pain and mild dyspnea she still askes for a cigarette. manuel her some more art supplies and offered companionship. will review with care managers if family will taker her home.
--- NOTE | 2019-07-11 06:27 | NUR ---
SUMMARY PT REMAINED COMFORTABLE T/O SHIFT. PT HAD NO ISSUES NOTED. PT SLEPT FOR MOST OF SHIFT. PT TAKES OFF BANDAGES AND ATTENDS WHILE AWAKE AT TIMES. PT SLEEPING AND IN NO DISTRESS. CALL LIGHT AND BED ALARM ON
--- NOTE | 2019-07-11 12:16 | NUR ---
pt sitting up coloring. more rednes and soreness to leg. nursing gave prn meds. pt asing if she can go to store and buy some cigarettes. Review with physician if we can get family to dome in and see her and if they can take her home.
--- NOTE | 2019-07-11 17:23 | NUR ---
Spiritual care note: Mrs. Carl was happy and talkative. She is confused therefore conversation is disjointed. She enjoys companionship. She denied pain/fear. She appears calm and comfortable. [facility] services will remain available.
--- NOTE | 2019-07-11 17:26 | NUR ---
PATIENT HAS BEEN PLEASANT AND COOPERATIVE THIS SHIFT. SHE HAS SPENT MUCH TIME THIS SHIFT COLORING PICTURES IN HER ROOM. COMPLAINED OF BACK PAIN EARLIER THIS AM AND GAVE THE PATIENT HER SCHEDULED TYLENOL AND NEWLY ORDERED LIDOCAINE PATCH WITH EFFECTIVE RESULTS. NO ACUTE CHANGES TO REPORT ON AT THIS TIME. WILL CONTINUE TO MONITOR AND PROVIDE CARE NEEDED.
--- NOTE | 2019-07-12 04:44 | NUR ---
SNOW BLOWER SUMMARY NO ACUTE CHANGES THIS SHIFT. PT CONTINUES ON COMFORT CARE MEASURES. IS AAOX2, CONFUSED BUT VERY PLEASANT. REPORTED BACK PAIN AT START OF SHIFT WHICH WENT AWAY AFTER SCHEDULED DOSE OF TYLENOL. PT HAS BEEN AWAKE MOST OF THE NIGHT AND USING HER COLORING BOOK. DENIES SOB, N/V. WILL CONTINUE TO MONITOR.
--- NOTE | 2019-07-12 07:40 | NUR ---
PATIENT IS SLEEPING AT THIS TIME. NO COMPLAINTS
--- NOTE | 2019-07-12 09:20 | NUR ---
Pt HAD BED BATH YESTERDAY. FROM THE BLOCK AND CASE MAKER THAT WAS ON SHIFT ACCORDING TO HER [employer]NER THAT IS WORKING TODAY.BUT THE BLOCK AND CASE MAKER FORGOT TO CHART THE BED BATH COMPLETED.
--- NOTE | 2019-07-12 09:32 | NUR ---
DRESSING CHANGED ON LEFT LOWER EXTREMITY. ATTENDS CHANGED. PATIENT ATE BREAKFAST AND IS NOW IN BED COLORING
--- NOTE | 2019-07-12 11:49 | NUR ---
PATIENT IS SITTING ON THE SIDE OF THE BED EATING LUNCH
--- NOTE | 2019-07-12 13:38 | NUR ---
PATIENT IS COLORING WHILE IN BED
--- NOTE | 2019-07-12 16:55 | NUR ---
theraputic time with patient. She deeps asking if she can go to [employer] and wants some real clothes. A little more frail today her hair is starting to fallout. Her affect is britght. brought her some toys and more art. will meet with care managers monday to see if we can get some family in to see her.
--- NOTE | 2019-07-12 17:26 | NUR ---
PATIENT IS IN BED COLORING. NO COMPLAINTS
--- NOTE | 2019-07-12 17:27 | NUR ---
PATIENT IS ALERT AND ORIENTED TO SELF AND FOLLOWING DIRECTIONS. SHE IS COOPERATIVE WITH CARE. COMPLAINED OF BACK PAIN THIS MORNING, TREATED PER EMAR. PATIENT HAS BEEN COLORING AND PLAYING WITH PUZZLES IN HER ROOM. NO COMPLAINTS. HAS A GOOD APPETITE. WILL CONTINUE TO MONITOR.
--- NOTE | 2019-07-12 22:15 | NUR ---
PT YELLING OUT FOR FIRST FEW HOURS OF SHIFT. YELLING OUT FOR "DARRIN" OR YELLING "HELP ME". ATTEMPTING TO PULL OFF BRIEF AND DRESSING TO LLE. PT ALSO REQUESTING FREQUENT SNACKS. SNACKS PROVIDED. SEVERAL PUDDINGS AND A YOGURT EATEN. SEROQUEL GIVEN FOR AGITATION WITH GOOD EFFECT. PT NOW SLEEPING AND APPEARS COMFORTABLE AT THIS TIME.
--- NOTE | 2019-07-13 04:35 | NUR ---
SHIFT SUMMARY FIRST FEW HOURS OF SHIFT PT YELLED ALMOST NON STOP, ATTEMPTING TO REMOVE HER BRIEF AND DRESSING TO LLE. SEROQUEL GIVEN FOR AGITATION. PT SLEPT WELL FOLLOWING. PT DENIED PAIN THIS EVENING WHEN EVER ASKED. PT VERY [place], ENJOYS HAVING STAFF AT BEDSIDE. INCONTINENT. ATTENDS IN PLACE. PT DID SOME COLORING WHILE AWAKE. ATE SEVERAL SNACKS. APPEARS TO BE SLEEPING COMFORTABLY STILL AT THIS TIME. WILL CONTINUE TO MONITOR.
--- NOTE | 2019-07-13 09:48 | NUR ---
ASLEEP BEFORE BREAKFAST. SHE APPEARS VERY COMFORTABLE.
--- NOTE | 2019-07-13 09:49 | NUR ---
SHE HAS HAD BREAKFAST WHILE SITTING UP ON THE SIDE OF THE BED. DENIES PAIN. NO COMPLAINTS. SHE IS COLORING.
--- NOTE | 2019-07-13 11:12 | NUR ---
Case Conference Note: Spoke with Bedside RN Sanjuana. Pt currently receiving personal care. Sanjuana reports Pt's symptoms are currently managed with no concerns at this time. Palliative Care will remain available.
--- NOTE | 2019-07-13 11:47 | NUR ---
SHE HAS HAD A BEDBATH AND DRESSING CHANGED ON HER L MEDIAL WELLS. SHE HAS BEEN BUSY WITH HER CRAFTS IN THE ROOM. SHE IS UP IN THE CHAIR NOW.
--- NOTE | 2019-07-13 12:07 | NUR ---
SHE DOESN'T WANT HER LUNCH ENTREE AND VEGGIE BUT IS EATING HER PROTEIN SUPPLEMENT.
--- NOTE | 2019-07-13 16:38 | NUR ---
SHE IS STILL IN THE CHAIR COLORING. SHE YELLS OUT WHENEVER SHE WANTS SOMETHING, USUALLY FOOD OR DRINK. LIDOCAINE PATCH AND TRAMADOL GIVEN THIS AFTERNOON FOR LOW BACK PAIN.
--- NOTE | 2019-07-13 18:08 | NUR ---
SHE ATE A LITTLE DINNER. SHE LIKES THE SNACKS MORE THAN THE MEALS. SHE IS STILL COLORING WITH HER MARKING PENS. NO NEW COMPLAINTS. LIDOCAINE PATCH AND TRAMADOL HAVE BEEN GIVEN FOR HER LOW BACK PAIN. SHE HAS HAD A GOOD DAY.
--- NOTE | 2019-07-14 04:44 | NUR ---
SHIFT SUMMARY PT APPEARS MALNOURISHED, VERY THIN AND FRAIL. PLEASANTLY CONFUSED. AWAKE MOST OF THE NIGHT, FINALLY FALLING ASLEEP AT APPROX 0400. SPENDS MOST OF THE TIME COLORING IN ROOM. REQUESTS FREQUENT SNACKS. A YOGURT AND SEVERAL PUDDINGS EATEN TONIGHT. PT INCONTINENT. ATTENDS IN PLACE. PT DID COMPLAIN OF PAIN IN BACK AND COCCYX. SCHEDULED TYLENOL GIVEN. PT CONTINUED TO REPORT PAIN. THEN MEDICATED W/ 10 MG ROXANOL. PT APPEARS COMFORTABLE AT THIS TIME.
--- NOTE | 2019-07-14 07:18 | NUR ---
PATIENT SLEEPING AT THIS TIME. PER REPORT PATIENT WAS UP MOST OF THE NIGHT. WILL CONT TO MONITOR FOR COMFORT.
--- NOTE | 2019-07-14 10:04 | NUR ---
PATIENT PAINFUL IN BACK WITH MOVEMENT AND REPOSITIONING. PRESSURE SORE TO COCCYX, PATIENT WILL NOT LEAVE PROTECTIVE DRESSING IN PLACE. WOUND TO LLE C/D/I. PATIENT EATING WELL NOW, FINISHING ALMOST OF HER TRAYS. CALM AND COOPERATIVE WITH CARE. FALLS PRECAUTIONS IN PLACE.
--- NOTE | 2019-07-14 12:38 | NUR ---
PATIENT IS UP IN CHAIR EATING LUNCH. PATIENT IS SMILING AND PLEASANTLY CONFUSED. DENIES ANY NEEDS AT THIS TIME.
--- NOTE | 2019-07-14 12:48 | NUR ---
Pt resting in recliner chair and is coloring. Pt denies pain at this time. Pt appears comfortable with no S/S of distress at this time. Spoke with Bedside RN Elida and discussed case. Symptoms are currently managed with no concerns at this time. Palliative Care will remain available.
--- NOTE | 2019-07-14 16:00 | NUR ---
DRESSING TO LLE WOUND CHANGED. PATIENT UP IN CHAIR. PLEASEANT AND COOPERATIVE WITH CARE. DENIES ANY NEEDS.
--- NOTE | 2019-07-14 17:40 | NUR ---
MEDICATED WITH ROXINOL AND ASPERCREAM WITH STATED RELIEF. PATIENT UP IN CHAIR EATING DINNER.
--- NOTE | 2019-07-14 21:10 | NUR ---
PT SITTING UP IN RECLINER COLORING. DECLINES WANTING TO GO TO BED RIGHT NOW. PT COMPLAINING OF ITCHING ON BACK. BENADRYL GIVEN.
--- NOTE | 2019-07-14 23:00 | NUR ---
LATE ENTRY 2200 PT REQUESTED TO GO TO BED. PT ASSISTED TO BED FROM RECLINER. BRIEF CHANGED. PT QUICKLY FELL ASLEEP. PT HAS BEEN COMFORTABLY SLEEPING SINCE.
--- NOTE | 2019-07-15 04:50 | NUR ---
SHIFT SUMMARY PT PLEASANTLY CONFUSED. SAT IN CHAIR FOR FIRST PART OF THE SHIFT COLORING WITH HER MARKERS. PT DENIED ANY PAIN THIS EVENING FOLLOWING SCHEDULED TYLENOL BUT DID COMPLAIN OF FEELING ITCHY. BENADRYL GIVEN. PT HAD MULTIPLE SNACKS WHILE SITTING UP IN CHAIR. SLEPT MOST OF THE NIGHT. APPEARED COMFORTABLE THROUGHOUT THE NIGHT.
--- NOTE | 2019-07-15 13:04 | NUR ---
COMFORT CARE VISIT: PT remains comfortable and without need for additional intervention. Spoke with RN regarding s/s and needs. Pt sitting up in bed, alert, happily chatting to TV. Hair groomed and up in pony tail. Pt appears more energetic and comfortable since I last saw her approx 6 days ago.
--- NOTE | 2019-07-15 16:07 | NUR ---
ALERT. COOPERATIVE. C/O BACK PAIN T/O SHIFT. TAKES LIDOCAINE PATCH OFF FEW HOURS AFTER APPLIED. ARTHRITIC CREAM USED AND THEN ROXANOL. CACHETIC LOOKING. GOOD APPETITE. UNLABORED RESPIRATIONS. IN CHAIR FOR MEALS. COLORING MOST OF SHIFT. PLACEMENT SCHEDULED FOR TOMORROW IN [place]. LEFT ANKLE CLEANED AND REDRESSED. TM
--- NOTE | 2019-07-16 07:19 | NUR ---
frail elderly Female on comfort measures to be Dc soon with dc planning paperwork in chart. Pleasant confusion. PT has multiple skin issues with dried intact scabs peresent. Turned & repostioned Q 2 to prevent further skin breakdown.
--- NOTE | 2019-07-16 14:13 | NUR ---
pt stable up in chair this moning will continue to bring her some diversion.
--- NOTE | 2019-07-16 14:45 | NUR ---
LEFT WELLS DRESSING CHANGED. CLEANED WITH SKIN TEGRITY, OIL EMULSION DRESSING W/NONADHEREING DRESSING. PICTURES TAKEN.
--- NOTE | 2019-07-16 14:58 | NUR ---
REPORT TO CHRISTO, DIRECTOR, [email or web address] [place]. ANSWER ALL QUESTIONS. TRANSPORT TO ARRIVE AT 1515.
[2019-07-16] MEDS ORDERED: MORP20L SL (15:08)
[2019-07-16] MEDS ORDERED: Seroquel Xr50 MG PO (15:09)
[2019-07-16] MEDS ORDERED: LIDO700A20 TOP (15:11)
[2019-07-16] MEDS ORDERED: ALCIS59.15 ML TOP (15:11)
[2019-07-16] MEDS ORDERED: Polyvinyl Alcoh15 ML BOTHEYES (15:12)
--- NOTE | 2019-07-16 16:19 | NUR ---
PATIENT LEFT ABOUT 4PM. IN [facility].
== END 2019-07-16 15:53 | DRG 853 ==
LOC: ER 17:40 → MEDS 05-03 00:39 → ERHOLD 05-03 00:39 → MEDS 05-03 11:55 → ICUW 05-08 15:55 → ICUE 05-08 16:16 → PCU 05-09 08:46 → ICUE 05-09 08:50 → PCU 05-09 08:51 → MEDS 05-10 19:01 → ENPENDDIS 07-16 10:00 → MEDS 07-16 15:53
PROVIDERS: Emergency Medicine; Family Medicine; Hospitalist; Internal Medicine; Nurse Practitioner Acute Care; ADMIT Hospitalist
PROC: 0JDR0ZZ Extraction of Left Foot Subcutaneous Tissue and Fascia, Open Approach (ICD-10-PCS; 2019-05-07)
PROC: B41D1ZZ Fluoroscopy of Aorta and Bilateral Lower Extremity Arteries using Low Osmolar Contrast (ICD-10-PCS; principal; 2019-05-08)
PROC: 047H3ZZ Dilation of Right External Iliac Artery, Percutaneous Approach (ICD-10-PCS; 2019-05-08)
PROC: 047L3ZZ Dilation of Left Femoral Artery, Percutaneous Approach (ICD-10-PCS; 2019-05-08)
PROC: 047U3ZZ Dilation of Left Peroneal Artery, Percutaneous Approach (ICD-10-PCS; 2019-05-08)
PROC: 047S3ZZ Dilation of Left Posterior Tibial Artery, Percutaneous Approach (ICD-10-PCS; 2019-05-08)
DX: A40.0 Sepsis due to streptococcus, group A (principal); L89.894 Pressure ulcer of other site, stage 4; N39.0 Urinary tract infection, site not specified; L03.116 Cellulitis of left lower limb; R64 Cachexia; Z68.1 Body mass index [BMI] 19.9 or less, adult; J44.9 Chronic obstructive pulmonary disease, unspecified; R65.20 Severe sepsis without septic shock; F17.210 Nicotine dependence, cigarettes, uncomplicated; R21 Rash and other nonspecific skin eruption; T36.1X5A Adverse effect of cephalosporins and other beta-lactam antibiotics, initial encounter; L27.0 Generalized skin eruption due to drugs and medicaments taken internally; Y92.9 Unspecified place or not applicable; I73.9 Peripheral vascular disease, unspecified; B35.6 Tinea cruris; R62.7 Adult failure to thrive; Z51.5 Encounter for palliative care; G30.9 Alzheimer's disease, unspecified; F02.80 Dementia in other diseases classified elsewhere, unspecified severity, without behavioral disturbance, psychotic disturbance, mood disturbance, and anxiety; S90.821A Blister (nonthermal), right foot, initial encounter; L89.159 Pressure ulcer of sacral region, unspecified stage
CPT/HCPCS: 0097U; 36415; 37220; 37224; 37228; 37232; 74018; 74176; 75625; 75716; 75774; 80048; 80053; 80069; 83605; 83735; 85014; 85018; 85025; 85027; 85347; 86140; 87070; 87075; 87205; 90686; 92526; 92610; 93922; 93970; 94640; 94760; 96361; 96365; 97110; 97116; 97162; 97166; 97530; 97535; 99152; 99153; 99285-25; A9270; C1725; C1760; C1769; C1887; C1894; G0008; J1200; J1630; J1644; J1650; J1956; J2250; J2370; J2405; J2543; J2704; J3010; J3480; J7030; J7050; J7060; J7120; Q0163; Q9967